=== PATIENT | female | born 1940 | race Caucasian/White ===

== ENCOUNTER 2024-02-06 14:06 | Outpatient (CLI) | payer MEDICARE, SELFPAY ==
--- NOTE | ~2024-02-06 | XR_ITS ---
EXAMINATION: XR chest 2V DATE: 02/06/2024 14:23 INDICATION: Shortness of breath. Essential hypertension. TECHNIQUE: Frontal and lateral views of the chest were obtained. COMPARISON: None. FINDINGS: The lungs are hyperexpanded with lucencies, consistent with emphysema. Calcified pulmonary nodules and calcified hilar and mediastinal lymph nodes are consistent with old granulomatous disease . There are airspace opacities in right lower lobe. No pleural effusion or pneumothorax. The heart si ze is normal. IMPRESSION: 1. Airspace opacities in right lower lobe, consistent with atelectasis versus pneumonia. 2. Emphysema. Reviewed, dictated and finalized at location E. T MONITOR IMPRESSION: 1. Airspace opacities in right lower lobe, consistent with atelectasis versus p neumonia. 2. Emphysema.
== END 2024-02-06 14:07 ==
PROVIDERS: PCP Family Medicine; Visit Provider Nurse Practitioner Family
DX: I10 Essential (primary) hypertension (principal); R06.02 Shortness of breath; J43.9 Emphysema, unspecified; R91.8 Other nonspecific abnormal finding of lung field
CPT/HCPCS: 71046

== ENCOUNTER 2024-02-06 22:09 | Observation (INO) | payer MEDICARE, SELFPAY ==
[2024-02-06] VITALS (9 sets, daily range): BP systolic 175–195; BP diastolic 58–85; PULSE 82–91; RESP 17–29; TEMP 37; O2SAT 90–100
--- NOTE | 2024-02-06 22:13 | ECG_ITS ---
Measurements Intervals [place] Rate: 83 P: 76 CA: 121 QRS: 65 QRSD: 122 T: 94 QT: 372 QTc: 438 Interpretive Statements SINUS RHYTHM INDETERMINATE AXIS RIGHT BUNDLE BRANCH BLOCK BASELINE ARTIFACT- I, II, III, AVL, AVF ABNORMAL ECG NO PREVIOUS ECG AVAILABLE FOR COMPARISON Electronically Signed On 02-07-2024 7:31:28 PROTOTYPE ENGINEER by Franc Caballero D.O.
[2024-02-06 22:29] LABS: Basophils Percent Auto 0.6 % (0.2-1.2); Eosinophils Percent Auto 0.4 % (0-4.4); Hematocrit 44.6 % (37.0-47.0); Hemoglobin 14.5 g/dL (12.0-15.0); Immature Granulocyte Absolute 0.02 K/mm3 (0.00-0.031); Immature Granulocyte Percent A 0.3 % (0-0.5); Lymphocytes Absolute Auto 0.94 K/mm3 (0.9-3.2); Lymphocytes Percent Auto 13.4 % (18.3-44.2); Mean Corpuscular HGB Conc 32.5 g/dl (32-36); Mean Corpuscular Hemoglobin 29.2 pg (26-34); Mean Corpuscular Volume 89.7 fl (80-100); Mean Platelet Volume 10.4 fl (7.4-10.4); Monocytes Absolute Auto 0.8 K/mm3 (0.1-0.6); Monocytes Percent Auto 11.1 % (2.6-8.5); Neutrophils Absolute Auto 5.2 K/mm3 (1.3-6.7); Neutrophils Percent Auto 74.2 % (45.5-73.1); Platelet Count Result 180 k/mm3 (150-375); Red Blood Count 4.97 M/mm3 (4.2-5.4); Red Cell Distribution Width 13.2 % (11.5-14.5)
[2024-02-06 22:38] LABS: Alanine Aminotransferase 14 U/L (6-35); Albumin Level 3.5 g/dL (3.5-5.1); Alkaline Phosphatase 70 U/L (38-126); Anion Gap 2 mmol/L (8-16); Aspartate Amino Transferase 25 U/L (14-36); Bilirubin,Total 1.1 mg/dL (0.2-1.3); Blood Urea Nitrogen 23 mg/dL (7-17); Calcium 9.4 mg/dL (8.4-10.2); Carbon Dioxide 32 mmol/L (22-30); Chloride 104 mmol/L (98-107); Estimated CRCL calculation 24 ml/min; Estimated Glomerular Filt Rate 48; Glucose 120 mg/dL (65-110); Sodium 138 mmol/L (137-145)
[2024-02-06] MEDS: IPRATROPIUM BR 0.02% INH SOLN 0.5 MG/2.5 ML VIAL 1 MG INHALATION (23:00)
[2024-02-06] MEDS: ALBUTEROL SULFATE NEB 2.5 MG/3 ML INH 10 MG INHALATION (23:01)
[2024-02-06] MEDS: SODIUM CHLORIDE 0.9% IV 2,000 ML 999 ML IV CONT (23:10)
--- NOTE | 2024-02-06 23:15 | PC.NURSE ---
pt care and report given to DOMINGA Lawson. all questions answered.
[2024-02-06 23:33] LABS: Influenza A QL RT-PCR Negative (Negative); Influenza B QL RT-PCR Negative (Negative); RSV RNA, RT-PCR Negative (Negative); SARS-CoV-2 RNA PCR Negative (Negative)
[2024-02-07] VITALS (17 sets, daily range): BP systolic 102–186; BP diastolic 50–75; PULSE 71–99; RESP 12–24; TEMP 36.9; O2SAT 92–96; BMI 16.2
--- NOTE | 2024-02-07 00:06 | ED.GENADULT ---
HPI - General Adult General Chief complaint: Shortness of Breath/Dyspnea Stated complaint: sob Time Seen by Provider: 02/06/24 22:18 History of Present Illness HPI narrative: This is an 83-year-old female with history of COPD and current smoker presenting with shortness of breath. Patient's says her breathing has gotten progressively worse over the last 2 weeks. The family noted got really bad 5 days ago because she stop smoking cigarettes. Patient is denying fever chills chest pain abdominal pain, nausea vomiting or diarrhea. She has been taking her medications as prescribed. Related Data Allergies Allergy/AdvReac Type Severity Reaction Status Date / Time No Known Allergies Allergy Verified 02/06/24 13:25 [facility] Past Medical History Medical History CKD (chronic kidney disease) stage 3, GFR 30-59 ml/min COPD (chronic obstructive pulmonary disease) Essential hypertension Hyperlipidemia Hypothyroid Nicotine use SOB (shortness of breath) on exertion Vitamin D deficiency Surgical History Surgical History H/O: hysterectomy (~1981) Family History Family History Sibling Bone cancer Daughter Diabetes mellitus Social History Social History Smoking packs per day: 1.5 Smoking cigarettes per day: 30.0 Years smoked: 65 Smoking pack-years: 97.50 Smoking status: Current every day smoker (smoking 3 cigarettes a day while living at her son's house) Tobacco type: cigarettes Alcohol intake: never Substance use: never Lack of Transportation: No Lack of Food: Never True Current Housing: I Have Housing Concerned About Future Housing: No Difficulty Paying Gas/Electric Bills: No Difficulty Paying for Meds: No Currently Unemployed: No Education: High School Diploma/GED Difficulty w/ Childcare or Family Care: No Living arrangements: with family Occupation/Education: retired Gender identity (if verbalized by the patient): Female Agree to blood products: Yes Exam Narrative: APPEARANCE: No apparent distress. Emphysema body type Head: atraumatic. EYES: EOMI, NOSE: Atraumatic NECK: Trachea midline RESPIRATORY: Decreased lung sounds in all olivares, tachypneic CARDIOVASCULAR: RRR, ABDOMINAL: Non-distended MUSCULOSKELETAl: No obvious deformities NEURO: Alert. Moving 4/4 extremities SKIN:: Warm, dry. Normal color PSYCHIATRIC: Normal affect Course Vital Signs Vital signs: Vital Signs Temperature 98.6 F 02/06/24 22:03 Pulse Rate 83 02/06/24 22:03 Respiratory Rate 29 H 02/06/24 22:03 Blood Pressure 195/85 H 02/06/24 22:03 Pulse Oximetry 93 02/06/24 22:03 Oxygen Delivery Room Air 02/06/24 22:03 Temperature 98.6 F 02/06/24 22:03 Pulse Rate 91 02/06/24 23:58 Respiratory Rate 24 H 02/06/24 23:58 Blood Pressure 195/85 H 02/06/24 22:03 Pulse Oximetry 92 02/06/24 22:45 Oxygen Delivery Nasal Cannula 02/06/24 22:26 Oxygen Flow Rate 1 02/06/24 22:26 Medical Decision Making MDM Narrative Medical decision making narrative: -Course: CT 3-year-old female presenting with shortness of breath. Given breathing treatments and steroids. Chest x-ray showed possible infiltratesvs atelectatsis in the right lower lobe. No fever or white count. Patient is well-appearing and pneumonia is less likely. O2 sat on room air is an 88-89. Placed on 2 L. Will see if patient's oxygen saturation improved with breathing treatments but she may be the point where she needs home oxygen. Patient put on Zithromax for COPD exacerbation. Patient will be admitted to the hospital for further management. -DDX includes but is not limited to: COPD, pneumonia, viral illness -Co-morbidities complicating care: COPD, current smoker -Social determinants of heal
--- NOTE | 2024-02-07 00:28 | PM.IMHP ---
H&P: HPI History of Present Illness Date/Time: 02/07/24 00:28 Chief Complaint: SOB Narrative: THIS IS AN 83-YEAR-OLD FEMALE WITH PAST MEDICAL HISTORY SIGNIFICANT FOR TOBACCO DEPENDENCE, COPD/EMPHYSEMA, HYPERTENSION. PATIENT PRESENTS TO THE EMERGENCY ROOM DUE TO WORSENING SHORTNESS OF BREATH FOR THE LAST 3 DAYS OR SO, COUGH, POOR APPETITE, PATIENT LIVES WITH SON WHO PROVIDES MUCH OF THE HISTORY. UPON ARRIVAL TO EMERGENCY ROOM PATIENT WAS FOUND TO HAVE A LOW OXYGEN SATURATION PLACED ON SUPPLEMENTAL OXYGEN BY NASAL CANNULA PRELIMINARY WORKUP WAS SIGNIFICANT FOR CHEST X-RAY WITH LUNG INFILTRATES. PATIENT IS STILL DAILY EVERYDAY SMOKER ACCORDING TO SON HAS NOT BEEN SMOKING THE LAST 3 DAYS. PATIENT HAS BEEN ADMITTED FOR FURTHER EVALUATION MANAGEMENT AND TREATMENT. EXAMINATION: XR chest 2V DATE: 02/06/2024 14:23 INDICATION: Shortness of breath. Essential hypertension. TECHNIQUE: Frontal and lateral views of the chest were obtained. COMPARISON: None. FINDINGS: The lungs are hyperexpanded with lucencies, consistent with emphysema. Calcified pulmonary nodules and calcified hilar and mediastinal lymph nodes are consistent with old granulomatous disease. There are airspace opacities in right lower lobe. No pleural effusion or pneumothorax. The heart size is normal. IMPRESSION: 1. Airspace opacities in right lower lobe, consistent with atelectasis versus pneumonia. 2. Emphysema. Review of Systems Review of Systems: SHORTNESS OF BREATH, COUGH Constitutional: Constitutional: Reports fatigue, Reports poor appetite and Reports weakness Eyes: Eyes: Denies change in vision ENT: Denies dysphagia and Denies odynophagia Cardiovascular: Cardiovascular: Denies chest pain, Denies radiating jaw, neck or arm pain and Denies palpitations Respiratory: Respiratory: Reports cough, Reports excessive phlegm production, Reports dyspnea and Reports wheezing Gastrointestinal: Gastrointestinal: Denies abdominal pain, Denies nausea and Denies vomiting Genitourinary: Genitourinary: Denies dysuria Musculoskeletal: Musculoskeletal: Reports muscle weakness Integumentary/Breasts: Skin/Breast: Denies rash Neurologic: Denies focal weakness and Denies Sensory deficit (Neuro) Psychiatric: Psychiatric: Reports no additional psychiatric complaints and Reports as per HPI Endocrine: Endocrine: Denies cold intolerance, Denies fatigue, Denies flushing, Denies heat intolerance, Denies polyphagia, Denies polydipsia, Denies polyuria and Denies palpitations Hematologic/Lymphatic: Hematologic/Lymphatic: Reports no additional hematologic/lymphatic complaints and Reports as per HPI Allergic/Immunologic: Allergic/Immunologic: Reports no additional allergic/immunologic complaints and Reports as per HPI [facility] Past Medical History Medical History CKD (chronic kidney disease) stage 3, GFR 30-59 ml/min COPD (chronic obstructive pulmonary disease) Essential hypertension Hyperlipidemia Hypothyroid Nicotine use SOB (shortness of breath) on exertion Vitamin D deficiency Surgical History Surgical History H/O: hysterectomy (~1981) Family History Family History Sibling Bone cancer Daughter Diabetes mellitus Social History Social History Smoking packs per day: 1.5 Smoking cigarettes per day: 30.0 Years smoked: 65 Smoking pack-years: 97.50 Smoking status: Current every day smoker (smoking 3 cigarettes a day while living at her son's house) Tobacco type: cigarettes Alcohol intake: never Substance use: never Lack of Transportation: No Lack of Food: Never True Current Housing: I Have Housing Concerned About Future Housing: No Difficulty Paying Gas/Electric Bills: No Difficulty Paying for Meds: No Currently Unemp
[2024-02-07] MEDS: AZITHROMYCIN 500 MG/NS 250 ML 500 MG/250 ML BAG 250 MG IVPB (01:21)
--- NOTE | 2024-02-07 02:01 | ADMGEN ---
This patient, Elsie Kaye, was admitted to Medical Room 250-01. Patient/family oriented to hospital policies and general routines including ID bracelet, bed and alarms, visiting hours, pain management, procedures, bathroom and other care routines, personal items, smoking policy, room service/diet, and visiting hours. Information on how to activate the Rapid Response Team has been discussed. Patient/Family are encouraged to report perceived risks to care and to ask questions if they do not understand what they are told or what they should do.
[2024-02-07] MEDS: IPRATROPIUM 0.5 MG/ALBUTEROL SULFATE 2.5 MG AMPUL.NEB 3 ML INHALATION ×3 (02:26→13:46)
[2024-02-07 04:19] LABS: Procalcitonin 0.3 ng/mL
--- NOTE | 2024-02-07 06:59 | PM.IMPN ---
Progress Note: A&P Assessment and Plan (1) Acute exacerbation of chronic obstructive pulmonary disease: Code(s): J44.1 - Chronic obstructive pulmonary disease with (acute) exacerbation Status: Acute Assessment and Plan: Patient presented with shortness of breath requiring new O2 supplementation in ED. CXR reveals right lower lobe opacities and emphysema. Possibly pneumonia, however WBC normal and afebrile. Respiratory panel negative. Home O2 evaluation negative. Continue Azithromycin Continue Methylprednisolone Continue Duoneb Monitor VS (maintain SpO2 88-94%) (2) Stage 3a chronic kidney disease (CKD): Code(s): N18.31 - Chronic kidney disease, stage 3a Status: Acute Assessment and Plan: Patients kidney function is at baseline. BUN 23, creatinine 1.1, eGFR 48 Avoid nephrotoxic medications (3) Hypothyroid: Qualifiers: Hypothyroidism type: acquired Qualified Code(s): E03.9 - Hypothyroidism, unspecified Code(s): E03.9 - Hypothyroidism, unspecified Status: Acute Assessment and Plan: TSH 0.63 on 03/21/23. Continue home management with Levothyroxine 112 mcg PO daily (4) Essential hypertension: Code(s): I10 - Essential (primary) hypertension Status: Acute Assessment and Plan: BP reviewed and is stable. Continue home management with Lisinopril 20 mg PO and Atenolol 100,g PO daily. (5) Hyperlipidemia: Qualifiers: Hyperlipidemia type: unspecified Qualified Code(s): E78.5 - Hyperlipidemia, unspecified Code(s): E78.5 - Hyperlipidemia, unspecified Status: Acute Assessment and Plan: Cholesterol 226, LDL 147, HDL 54 on 03/21/23. Continue home management with Atorvastatin 20 mg PO (6) Tobacco dependence: Code(s): F17.200 - Nicotine dependence, unspecified, uncomplicated Status: Acute Plan Diet: heart healthy DVT ppx: Lovenox Subjective Date/time seen: 02/07/24 06:59 Interval history: Patient is an 83 year old female smoker with significant medical history of COPD, chronic kidney disease stage 3a, Hypothyroidism, hypertension, hyperlipidemia and nicotine dependence. Today she is lying in bed comfortably with no new complaints on 2L NC. Patient came to the hospital due to progressive shortness of breath starting 2 weeks ago and increasing in severity in the past 5 days. She states prior to this episode she was able to do her daily activities with occasional shortness of breath. She denies chest pain and palpitations during those episodes. She is not on oxygen supplementation at home. She has a chronic nonproductive cough and feels as though phlegm is constantly in the back of her throat. She denies fever, nausea/vomiting, chest pain, palpitations, and changes in bowel/bladder. Review of Systems Review of Systems: All systems reviewed & are unremarkable except as noted in HPI and below Exam Narrative: AF General: Female in no acute respiratory distress who is nontoxic appearing, lying semi recumbent in bed. HEENT: Normocephalic. Atraumatic. Pupils equal round reactive to light. Extraocular movement intact. Sclera clear and anicteric. No facial asymmetry. Chest: Lungs are clear to auscultation bilaterally. No wheezes or crackles. CV: Heart was regular rate and rhythm. S1-S2. No murmurs, gallops, or rubs. Abd: Abdomen was soft. Nontender. Nondistended. Positive bowel sounds. No organomegaly or masses. Ext: No clubbing, cyanosis, or edema. 2+ DP pulses bilaterally. Neuro: Patient is alert and oriented x4. Speech is clear. Psych: Normal mood and affect. Patient is pleasant and cooperative. Skin: Warm and dry. No rashes noted. Objective Data Vital Signs Vital Signs: Vital Signs - 24 hr 02/06/24 22:03 02/06/24 22:03 02/06/24 22:26 Temperature 98.6 F Pulse Rate 83 Respiratory Rate 29 H Blood Pressure 195/85 H Pulse Oximetry 93 90 93 Oxygen Delivery Room Air Room Air
[2024-02-07] MEDS: methylPREDNISolone SOD SUCC 125 MG VIAL 60 MG IV PUSH ×2 (07:33→12:36)
[2024-02-07] MEDS: atenoloL 50 MG TABLET 100 MG PO (09:31)
[2024-02-07] MEDS: lisinopriL 20 MG TABLET PO (09:31)
[2024-02-07] MEDS: CHOLECALCIFEROL 1,000 UNITS TABLET 5000 UNITS PO (09:31)
[2024-02-07] MEDS: LEVOTHYROXINE SODIUM 112 MCG TABLET PO (09:31)
[2024-02-07] MEDS: guaiFENesin 12 HR 600 MG TABCR PO (12:36)
--- NOTE | 2024-02-07 12:49 | PM.DS ---
DS: Admitting Diagnosis Discharge Date 02/07/2024 Admitting Diagnosis COPD exacerbation Chronic kidney disease stage 3a Hypothyroidism Hypertension Hyperlipidemia Nicotine dependence DS: Discharge Diagnosis Discharge Diagnosis (1) Acute exacerbation of chronic obstructive pulmonary disease: Code(s): J44.1 - Chronic obstructive pulmonary disease with (acute) exacerbation Status: Acute (2) Stage 3a chronic kidney disease (CKD): Code(s): N18.31 - Chronic kidney disease, stage 3a Status: Acute (3) Essential hypertension: Code(s): I10 - Essential (primary) hypertension Status: Acute (4) Hyperlipidemia: Qualifiers: Hyperlipidemia type: unspecified Qualified Code(s): E78.5 - Hyperlipidemia, unspecified Code(s): E78.5 - Hyperlipidemia, unspecified Status: Acute (5) Hypothyroid: Qualifiers: Hypothyroidism type: acquired Qualified Code(s): E03.9 - Hypothyroidism, unspecified Code(s): E03.9 - Hypothyroidism, unspecified Status: Acute (6) Nicotine use: Code(s): Z72.0 - Tobacco use Status: Acute DS: Summary Hospital Course Reason for hospitalization: COPD exacerbation Chronic kidney disease stage 3a Hypothyroidism Hypertension Hyperlipidemia Nicotine dependence Hospital Course: Patient is an 83 year old female smoker with significant medical history of COPD, chronic kidney disease stage 3a, Hypothyroidism, hypertension, hyperlipidemia and nicotine dependence. Patient came to the hospital due to progressive shortness of breath starting 2 weeks ago and increasing in severity in the past 5 days. She was placed on O2 supplementation in the ED. She states prior to this episode she was able to do her daily activities with occasional shortness of breath. She denies chest pain and palpitations during those episodes. She is not on oxygen supplementation at home. She has a chronic nonproductive cough and feels as though phlegm is constantly in the back of her throat. She denies fever, nausea/vomiting, chest pain, palpitations, and changes in bowel/bladder. A CXR revealed right lower lobe opacities and emphysema. Possibly pneumonia, however WBC normal and afebrile. Respiratory panel negative. Home O2 evaluation negative. Patient has not required oxygen supplementation and vital signs remain stable. Discussed with patient that she will be discharged home with azithromycin to complete her course of antibiotics and 5 days of prednisone. She will continue her home medications as prescribed. Patient states understanding. Discussed in depth the importance of smoking cessation. Time spent discussing smoking cessation with patient: 3 to 10 minutes Status at Discharge Functional status at discharge: independent ambulation Overall status at discharge: patient is progressing back to baseline Time Spent with Patient Time attestation: Total time spent providing and/or coordinating discharge services: Time spent: Greater than 30 minutes Exam Narrative: AF HR 90 RR 12 SpO2 93% BP 110/50 General: Female in no acute respiratory distress who is nontoxic appearing, lying semi recumbent in bed. HEENT: Normocephalic. Atraumatic. Pupils equal round reactive to light. Extraocular movement intact. Sclera clear and anicteric. Nares patent. No facial asymmetry. Chest: Lungs are clear to auscultation bilaterally. No wheezes or crackles. CV: Heart was regular rate and rhythm. S1-S2. No murmurs, gallops, or rubs. Abd: Abdomen was soft. Nontender. Nondistended. Positive bowel sounds. No organomegaly or masses. Ext: No clubbing, cyanosis, or edema. 2+ DP pulses bilaterally. Neuro: Patient is alert and oriented x4. Speech is clear. Psych: Normal mood and affect. Patient is pleasant and cooperative. Skin: Warm and dry. No rashes noted. DS: Data Data Completed and Pending Completed studies during hospitalization: CXR. Labs on day of discharge: Labs from last 24 h
== END 2024-02-07 15:35 | disposition home or self-care (01) ==
LOC: ANHED 02-07 01:00 → ANH2MED 02-07 12:43
PROVIDERS: Admitting Provider Internal Medicine; Emergency Provider Emergency Medicine; PCP Family Medicine; Visit Provider Internal Medicine
DX: J44.1 Chronic obstructive pulmonary disease with (acute) exacerbation (principal); J43.9 Emphysema, unspecified; I12.9 Hypertensive chronic kidney disease with stage 1 through stage 4 chronic kidney disease, or unspecified chronic kidney disease; N18.31 Chronic kidney disease, stage 3a; E78.5 Hyperlipidemia, unspecified; E03.9 Hypothyroidism, unspecified; R94.31 Abnormal electrocardiogram [ECG] [EKG]; R63.0 Anorexia; E55.9 Vitamin D deficiency, unspecified; Z68.1 Body mass index [BMI] 19.9 or less, adult; F17.210 Nicotine dependence, cigarettes, uncomplicated; Z20.822 Contact with and (suspected) exposure to COVID-19; Z79.51 Long term (current) use of inhaled steroids; Z79.899 Other long term (current) drug therapy
CPT/HCPCS: 36415; 80053; 84145; 85025; 87637; 93005; 94618; 94640; 96361; 96374; 96375; 96376; 99285; A9270; G0378; J0456; J2930; J7030

== ENCOUNTER 2024-02-17 15:26 | Outpatient (CLI) | payer MEDICARE, SELFPAY ==
--- NOTE | ~2024-02-17 | CT_ITS ---
CT Scan of the Chest without Contrast: Clinical Indication: Shortness of breath Technique: Contiguous sections were acquired throughout the chest without intravenous contrast. Dose reduction technique was used on this scan by utilizing automated exposure control and iterative recon struction technique. The dose-length product (DLP) was 145.47 mGy-cm. Findings: There is no evidence of any significant mediastinal, hilar or axillary lymphadenopathy. There are ext ensive atherosclerotic calcifications of the aorta and coronary vessels. Minimal pleural fluid present bilaterally. No pericardial effusion. Severe emphysema present.. Bilateral calcified granulomas or scarring are present. Additional calcifi ed right upper lobe granuloma present. There are calcified pleural plaques. Focal possible semisolid nodule in the right lower lobe measuring up to 9 mm (axial image 68). Images through the upper abdomen reveal probable L3 compression fracture, partially imaged. Impression: 9 mm probable semisolid nodule in the right lower lobe. One-year follow-up exam advised to reassess. Advanced emphysema with calcified granulomas. Minimal pleural fluid bilaterally. L3 compression fracture, partially imaged. Reviewed, dictated and finalized at [facility]. Impression: 9 mm probable semisolid nodule in the right lower lobe. One-year follow-up exam advised to reassess. Advanced emphysema with calcified granulomas. Minimal pleural fluid bilaterally. L3 compression fracture, partially imaged.
== END 2024-02-17 15:27 ==
LOC: GOSHIMG 15:27
PROVIDERS: PCP Family Medicine; Visit Provider Nurse Practitioner Family
DX: J18.9 Pneumonia, unspecified organism (principal); R06.02 Shortness of breath; J44.1 Chronic obstructive pulmonary disease with (acute) exacerbation; J43.9 Emphysema, unspecified
CPT/HCPCS: 71250

== ENCOUNTER 2025-02-08 08:23 | Emergency (ER) | payer MEDICARE, SELFPAY ==
--- NOTE | ~2025-02-08 | CT_ITS ---
CT brain wo con Ordering provider: Greg Vivar MD History: 84 years Female with . weakness . Comparison: None. Technique: CT of the head without contrast. Radiation reduction technique utilized.The dose-length pr oduct was 605.33 mGy-cm. FINDINGS: BRAIN PARENCHYMA AND CSF SPACES: Moderate leukoaraiosis and diffuse cortical atrophy. Moderate athero matous disease. No midline shift, mass effect or hemorrhage. The brain parenchyma and CSF spaces are otherwise normal. VISUALIZED PARANASAL SINUSES: Well aerated. MASTOIDS: Well aerated. BONES: The bones appear intact. SOFT TISSUES: Visualized nasopharynx is normal. Superficial soft tissues are normal. IMPRESSION: No acute intracranial findings. Reviewed, dictated and finalized at location A.
--- NOTE | ~2025-02-08 | XR_ITS ---
EXAMINATION: XR chest 2V DATE: 02/08/2025 09:43 INDICATION: Confusion. Cough. Weakness. TECHNIQUE: Frontal and lateral views of the chest were obtained on 3 radiographs. COMPARISON: Chest 2 views 02/06/2024, chest CT 02/17/2024 FINDINGS: The lungs are hyperexpanded with lucencies, consistent with emphysema. Calcified pulmonary nodules and calcified hilar and mediastinal lymph nodes are consistent with old granulomatous disease . There are calcified pleural plaques bilaterally. No pleural effusion or pneumothorax. The heart siz e is normal. IMPRESSION: 1. Emphysema. Reviewed, dictated and finalized at location B. IMPRESSION: 1. Emphysema.
--- NOTE | 2025-02-08 08:31 | ECG_ITS ---
Test Date: 2025-02-08 08:37:11 Measurements Intervals [place] Rate: 63 P: 84 MO: 118 QRS: -48 QRSD: 127 T: 104 QT: 436 QTc: 447 Interpretive Statements SINUS RHYTHM RIGHT BUNDLE BRANCH BLOCK T-WAVE ABNORMALITY, CONSIDER ANTEROLATERAL ISCHEMIA No previous ECG available for comparison Electronically Signed On 02-08-2025 14:55:26 CDT by Brien Del Toro M.D.
[2025-02-08 08:33] VITALS: BP 168/45; PULSE 65; RESP 22; TEMP 36.3; O2SAT 96
[2025-02-08 08:53] LABS: Basophils Percent Auto 0.4 % (0.2-1.2); Eosinophils Percent Auto 0.1 % (0-4.4); Hematocrit 45.6 % (37.0-47.0); Hemoglobin 14.5 g/dL (12.0-15.0); Immature Granulocyte Absolute 0.03 K/mm3 (0.00-0.031); Immature Granulocyte Percent A 0.4 % (0-0.5); Immature Platelet Fraction Pct 4.4 % (0.9-11.2); Lymphocytes Absolute Auto 0.97 K/mm3 (0.9-3.2); Lymphocytes Percent Auto 14.5 % (18.3-44.2); Mean Corpuscular HGB Conc 31.8 g/dl (32-36); Mean Corpuscular Hemoglobin 28.5 pg (26-34); Mean Corpuscular Volume 89.6 fl (80-100); Mean Platelet Volume 11.2 fl (7.4-10.4); Monocytes Absolute Auto 0.7 K/mm3 (0.1-0.6); Monocytes Percent Auto 9.8 % (2.6-8.5); Neutrophils Percent Auto 74.8 % (45.5-73.1); Platelet Count Result 131 k/mm3 (150-375); Red Blood Count 5.09 M/mm3 (4.2-5.4); White Blood Count 6.7 K/mm3 (4.5-10.0)
[2025-02-08 09:10] LABS: Alanine Aminotransferase 15 U/L (6-35); Albumin Level 3.6 g/dL (3.5-5.1); Alkaline Phosphatase 51 U/L (38-126); Anion Gap 6 mmol/L (4-12); Aspartate Amino Transferase 33 U/L (14-36); Bilirubin,Total 0.6 mg/dL (0.2-1.3); Blood Urea Nitrogen 42 mg/dL (7-17); Calcium 9.4 mg/dL (8.4-10.2); Carbon Dioxide 29 mmol/L (22-30); Chloride 104 mmol/L (98-107); Estimated CRCL calculation 20 ml/min; Estimated Glomerular Filt Rate 41; Glucose 133 mg/dL (65-110); Potassium 4.3 mmol/L (3.4-5.0); Sodium 139 mmol/L (137-145)
[2025-02-08 09:38] LABS: Appearance Urine Sl Cloudy (Clear); Color Urine Yellow (Yellow); pH Urine 5.5 (5.0-9.0)
[2025-02-08 09:39] LABS: Blood Urine Negative (Negative); Glucose Urine UA Negative (Negative); Ketones Urine Negative (Negative); Protein Urine 3+ mg/dL (Negative)
[2025-02-08 09:40] LABS: Bilirubin Urine Negative (Negative); Nitrate Urine Negative (Negative); Urobilinogen Urine 0.2 mg/dL (<2.0)
[2025-02-08 09:41] LABS: Add Urine Microscopic? YES; Leukocyte Esterase Ur Negative LEU/UL (Negative)
[2025-02-08 09:58] LABS: RBC Urine None seen /hpf (0-2); Squamous Epithelial Cell Urine Few /hpf (Few); WBC Urine 0-5 /hpf (0-3)
[2025-02-08 09:59] LABS: Bacteria Urine 2+ /hpf; Calcium Oxalate Crystals Urine Present /hpf; Hyaline Casts Urine Present /lpf
[2025-02-08] MEDS: IPRATROPIUM 0.5 MG/ALBUTEROL SULFATE 2.5 MG AMPUL.NEB 3 ML 6 ML INHALATION (09:59)
[2025-02-08 10:00] VITALS: PULSE 61; RESP 20
[2025-02-08 10:12] LABS: Fractional Inspired Oxygen 21 %; HCO3 VBG 26.2 mEq/l (24.0-30.0); PO2 VBG 35.5 mmHg (35.0-45.0)
[2025-02-08 10:14] LABS: Device ROOM AIR; pH VBG 7.402 (7.300-7.400)
[2025-02-08 10:27] VITALS: PULSE 66; RESP 21
[2025-02-08 10:39] LABS: Alanine Aminotransferase 15 U/L (6-35); Albumin Level 3.6 g/dL (3.5-5.1); Alkaline Phosphatase 61 U/L (38-126); Anion Gap 7 mmol/L (4-12); Aspartate Amino Transferase 29 U/L (14-36); Bilirubin,Total 0.4 mg/dL (0.2-1.3); Blood Urea Nitrogen 41 mg/dL (7-17); Calcium 9.2 mg/dL (8.4-10.2); Carbon Dioxide 30 mmol/L (22-30); Chloride 103 mmol/L (98-107); Creatine Kinase 51 U/L (30-135); Estimated CRCL calculation 18 ml/min; Estimated Glomerular Filt Rate 36; Glucose 114 mg/dL (65-110); Lipase 227 U/L (23-300); Magnesium 1.9 mg/dL (1.6-2.3); Phosphorus 3.5 mg/dL (2.5-4.5); Potassium 3.9 mmol/L (3.4-5.0); Sodium 140 mmol/L (137-145)
[2025-02-08 10:44] LABS: Basophils Percent Auto 0.3 % (0.2-1.2); Hematocrit 42.3 % (37.0-47.0); Hemoglobin 13.6 g/dL (12.0-15.0); Immature Granulocyte Absolute 0.02 K/mm3 (0.00-0.031); Immature Granulocyte Percent A 0.3 % (0-0.5); Lymphocytes Absolute Auto 1.24 K/mm3 (0.9-3.2); Lymphocytes Percent Auto 18.8 % (18.3-44.2); Mean Corpuscular HGB Conc 32.2 g/dl (32-36); Mean Corpuscular Hemoglobin 28.5 pg (26-34); Mean Corpuscular Volume 88.5 fl (80-100); Mean Platelet Volume 10.5 fl (7.4-10.4); Monocytes Absolute Auto 0.7 K/mm3 (0.1-0.6); Neutrophils Absolute Auto 4.6 K/mm3 (1.3-6.7); Neutrophils Percent Auto 69.6 % (45.5-73.1); Platelet Count Result 141 k/mm3 (150-375); Red Blood Count 4.78 M/mm3 (4.2-5.4); Red Cell Distribution Width 13.9 % (11.5-14.5); White Blood Count 6.6 K/mm3 (4.5-10.0)
[2025-02-08 10:53] LABS: Lactic Acid Reflex 1.1 mmol/L (0.7-2.0)
[2025-02-08 10:54] LABS: INR 0.9; Prothrombin Time 12.7 Seconds (11.1-14.7)
[2025-02-08] MEDS: SODIUM CHLORIDE 0.9% IV 1,500 ML 999 ML IV CONT (10:54)
[2025-02-08] MEDS: ONDANSETRON INJ 4 MG/2 ML VIAL IV PUSH (10:54)
[2025-02-08 10:55] LABS: Partial Thromboplastin Time 26.7 Seconds (22.3-36.8)
[2025-02-08 10:58] LABS: Troponin I 0.045 ng/mL (0.000-0.034)
[2025-02-08 11:04] LABS: Influenza A QL RT-PCR Positive (Negative); Influenza B QL RT-PCR Negative (Negative); RSV RNA, RT-PCR Negative (Negative); SARS-CoV-2 RNA PCR Negative (Negative)
[2025-02-08 11:46] LABS: Thyroid Stimulating Hormone Reflex 0.271 uIU/mL (0.465-4.68)
--- NOTE | 2025-02-08 11:58 | PC.NURSE ---
Meal tray ordered for pt
[2025-02-08 12:12] LABS: Free T4 Free Thyroxine Reflex 2.87 ng/dL (0.78-2.19)
--- NOTE | 2025-02-08 12:12 | ED.GENADULT ---
HPI - General Adult General Chief complaint: Weakness Stated complaint: vomiting, weak, found sitting on floor, confused Time Seen by Provider: 02/08/25 09:05 History of Present Illness HPI narrative: This is an 84-year-old female presenting for generalized weakness. She has been exposed to flu from a family member. Four days ago she had multiple episodes of nausea and vomiting has been laying in bed since then. She is not eating or drinking well. Today she got up to go to the restroom but was too weak and ended up lower herself to the floor and wetting herself. Family then brought her to the hospital for evaluation. The patient says that she feels weak. She is denying fevers chills chest pain difficulty breathing abdominal pain or urinary symptoms. She does not have any pain in says that she did not fall but lower self gently to the ground. Related Data Allergies Allergy/AdvReac Type Severity Reaction Status Date / Time No Known Allergies Allergy Verified 02/08/25 08:41 [facility] Past Medical History Medical History Emphysema of lung Osteoporosis Compression fracture CKD (chronic kidney disease) stage 3, GFR 30-59 ml/min Vitamin D deficiency Nicotine use Hypothyroid Hyperlipidemia Essential hypertension COPD (chronic obstructive pulmonary disease) Surgical History Surgical History H/O: hysterectomy (~1981) Family History Family History Sibling Bone cancer Daughter Diabetes mellitus Social History Social History Smoking packs per day: 0.5 Smoking cigarettes per day: 10.0 Years smoked: 65 Smoking pack-years: 32.50 Smoking status: Current every day smoker Tobacco type: cigarettes Smoking end date: 01/30/24 Alcohol intake: never Substance use: never Substance use type: does not use Do You Feel Safe in your Home?: Yes Lack of Transportation: No Lack of Food: Never True Current Housing: I Have Housing Concerned About Future Housing: No Difficulty Paying Gas/Electric Bills: No Difficulty Paying for Meds: No Currently Unemployed: No Education: High School Diploma/GED Difficulty w/ Childcare or Family Care: No Living arrangements: with family Occupation/Education: retired Gender identity (if verbalized by the patient): Female Spiritual care concerns: No Agree to blood products: Yes Exam Narrative: APPEARANCE: No apparent distress. Head: atraumatic. EYES: EOMI, NOSE: Atraumatic NECK: Trachea midline RESPIRATORY: No increased rate of breathing, decreased air entry in all olivares, CARDIOVASCULAR: RRR, no peripheral edema ABDOMINAL: Non-distended soft nontender MUSCULOSKELETAl: Head to toe trauma exam performed w/ no areas of tenderness or deformity NEURO: Alert. Moving 4/4 extremities SKIN:: Warm, dry. Normal color PSYCHIATRIC: Normal affect Course Vital Signs Vital signs: Vital Signs Temperature 97.4 F L 02/08/25 08:33 Pulse Rate 65 02/08/25 08:33 Respiratory Rate 22 H 02/08/25 08:33 Blood Pressure 168/45 H 02/08/25 08:33 Pulse Oximetry 96 02/08/25 08:33 Oxygen Delivery Room Air 02/08/25 08:33 Temperature 97.4 F L 02/08/25 08:33 Pulse Rate 66 02/08/25 10:27 Respiratory Rate 21 H 02/08/25 10:27 Blood Pressure 168/45 H 02/08/25 08:33 Pulse Oximetry 96 02/08/25 08:33 Oxygen Delivery Room Air 02/08/25 08:33 Medical Decision Making MDM Narrative Medical decision making narrative: -Course: A 84-year-old female presenting with 3 days of flu-like symptoms and generalized weakness. Given breathing treatment for decreased breath sounds. Given fluid resuscitation for dehydration. Sepsis workup obtained. Patient is positive for influenza A. SXS onset > 48 hrs. Risk for workup was significant for troponins that were flat at .045 -> .040. Patient does not have chest pain. No ischemic changes on EKG. I discussed admission with patient in regards to her elevated troponins. Her symptoms are not consistent with ACS and are more likely demand ischemia from a viral illness. Patient/family do not want to be admitted and are aware of the risks of MT/. On re-evaluation patient is resting comfortably in bed. She has been able to ambulate around the emergency department with walker which is her baseline. She was able to eat and drink as normal. She says that she is feeling much better. Patient is comfortable going home at this time. She has follow-up with her primary care physician tomorrow. She is encouraged to return to the ED if she develops any worsening symptoms, chest pain, difficulty breathing or if she is getting worse. Independent EKG interpretation: Rhythm [sinus], Rate [63], [place] -[normal], GA -[normal], QRS [narrow], QTC [normal], T waves -[negative for concerning inversions], ST Segments - [Negative for concerning elevations] Final interpretations: [Normal Sinus Rhythm] Vital Signs Vital Signs: Vital Signs Temperature 97.4 F L 02/08/25 08:33 Pulse Rate 65 02/08/25 08:33 Respiratory Rate 22 H 02/08/25 08:33 Blood Pressure 168/45 H 02/08/25 08:33 Pulse Oximetry 96 02/08/25 08:33 Oxygen Delivery Room Air 02/08/25 08:33 Temperature 97.4 F L 02/08/25 08:33 Pulse Rate 66 02/08/25 10:27 Respiratory Rate 21 H 02/08/25 10:27 Blood Pressure 168/45 H 02/08/25 08:33 Pulse Oximetry 96 02/08/25 08:33 Oxygen Delivery Room Air 02/08/25 08:33 Lab Data 02/08/25 10:37 02/08/25 10:18 Labs: Lab Results 02/08/25 02/08/25 02/08/25 Range/Units 08:44 09:18 10:18 WBC 6.7 (4.5-10.0) K/mm3 RBC 5.09 (4.2-5.4) M/mm3 Hgb 14.5 (12.0-15.0) g/dL Hct 45.6 (37.0-47.0) % MCV 89.6 (80-100) fl MCH 28.5 (26-34) pg MCHC 31.8 L (32-36) g/dl RDW 14.0 (11.5-14.5) % Plt Count 131 L (150-375) k/mm3 MPV 11.2 H (7.4-10.4) fl Immature Gran % (Auto) 0.4 (0-0.5) % Neut % (Auto) 74.8 H (45.5-73.1) % Lymph % (Auto) 14.5 L (18.3-44.2) % [place] % (Auto) 9.8 H (2.6-8.5) % Eos % (Auto) 0.1 (0-4.4) % Baso % (Auto) 0.4 (0.2-1.2) % Lymph # (Auto) 0.97 (0.9-3.2) K/mm3 [place] # (Auto) 0.7 H (0.1-0.6) K/mm3 Eos # (Auto) 0.0 (0-0.3) K/mm3 Baso # (Auto) 0.0 (0.0-0.1) K/mm3 Abs Immat Gran (auto) 0.03 (0.00-0.031) K/mm3 Absolute Neuts (auto) 5.0 (1.3-6.7) K/mm3 Absolute Nucleated RBC 0.000 (0.0-0.012) K/mm3 Nucleated RBC % 0.0 (0.0-0.2) % % Immature Plt Fraction 4.4 (0.9-11.2) % PT (11.1-14.7) Seconds INR APTT (22.3-36.8) Seconds Sodium 139 140 (137-145) mmol/L Potassium 4.3 3.9 (3.4-5.0) mmol/L Chloride 104 103 (98-107) mmol/L Carbon Dioxide 29 30 (22-30) mmol/L Anion Gap 6 7 (4-12) mmol/L BUN 42 H D 41 H (7-17) mg/dL Creatinine 1.24 H 1.40 H (0.7-1.0) mg/dL Estim Creat Clear Calc 20 18 ml/min Estimated GFR 41 L 36 L (59 - ) Glucose 133 H 114 H (65-110) mg/dL Lactic Acid (0.7-2.0) mmol/L Calcium 9.4 9.2 (8.4-10.2) mg/dL Phosphorus 3.5 (2.5-4.5) mg/dL Magnesium 1.9 (1.6-2.3) mg/dL Total Bilirubin 0.6 0.4 (0.2-1.3) mg/dL AST 33 29 (14-36) U/L ALT 15 15 (6-35) U/L Alkaline Phosphatase 51 61 (38-126) U/L Total Creatine Kinase 51 (30-135) U/L Troponin I 0.045 H* (0.000-0.034) ng/mL Total Protein 7.0 7.0 (6.3-8.2) g/dL Albumin 3.6 3.6 (3.5-5.1) g/dL Lipase 227 (23-300) U/L TSH (Reflex) (0.465-4.68) uIU/mL Free T4 (0.78-2.19) ng/dL Urine Color Yellow (Yellow) Urine Appearance Sl cloudy (Clear) Urine pH 5.5 (5.0-9.0) Ur Specific [place] 1.020 (1.001-1.035) Urine Protein 3+ H (Negative) mg/dL Urine Glucose (UA) Negative (Negative) mg/dL Urine Ketones Negative (Negative) mg/dL Ur Blood (Man) Negative (Negative) Urine Nitrate Negative (Negative) Urine Bilirubin Negative (Negative) Urine Urobilinogen 0.2 (<2.0) mg/dL Leukocyte Esterase Rfl Negative (Negative) NANDA/UL Urine RBC None seen (0-2) /hpf Urine WBC 0-5 (0-3) /hpf Ur Squamous Epith Cells Few (Few) /hpf Calcium Oxalate Crystal Present H (None) /hpf Urine Bacteria 2+ H /hpf Hyaline Casts Present (None) /lpf Influenza A (RT-PCR) (Negative) Influenza B (RT-PCR) (Negative) RSV (RT-PCR) (Negative) SARS-CoV-2 RNA (RT-PCR) (Negative) 02/08/25 02/08/25 02/08/25 Range/Units 10:20 10:37 10:38 WBC 6.6 (4.5-10.0) K/mm3 RBC 4.78 (4.2-5.4) M/mm3 Hgb 13.6 (12.0-15.0) g/dL Hct 42.3 (37.0-47.0) % MCV 88.5 (80-100) fl MCH 28.5 (26-34) pg MCHC 32.2 (32-36) g/dl RDW 13.9 (11.5-14.5) % Plt Count 141 L (150-375) k/mm3 MPV 10.5 H (7.4-10.4) fl Immature Gran % (Auto) 0.3 (0-0.5) % Neut % (Auto) 69.6 (45.5-73.1) % Lymph % (Auto) 18.8 (18.3-44.2) % [place] % (Auto) 11.0 H (2.6-8.5) % Eos % (Auto) 0.0 (0-4.4) % Baso % (Auto) 0.3 (0.2-1.2) % Lymph # (Auto) 1.24 (0.9-3.2) K/mm3 [place] # (Auto) 0.7 H (0.1-0.6) K/mm3 Eos # (Auto) 0.0 (0-0.3) K/mm3 Baso # (Auto) 0.0 (0.0-0.1) K/mm3 Abs Immat Gran (auto) 0.02 (0.00-0.031) K/mm3 Absolute Neuts (auto) 4.6 (1.3-6.7) K/mm3 Absolute Nucleated RBC 0.000 (0.0-0.012) K/mm3 Nucleated RBC % 0.0 (0.0-0.2) % % Immature Plt Fraction (0.9-11.2) % PT 12.7 (11.1-14.7) Seconds INR 0.9 APTT 26.7 (22.3-36.8) Seconds Sodium (137-145) mmol/L Potassium (3.4-5.0) mmol/L Chloride (98-107) mmol/L Carbon Dioxide (22-30) mmol/L Anion Gap (4-12) mmol/L BUN (7-17) mg/dL Creatinine (0.7-1.0) mg/dL Estim Creat Clear Calc ml/min Estimated GFR (59 - ) Glucose (65-110) mg/dL Lactic Acid 1.1 (0.7-2.0) mmol/L Calcium (8.4-10.2) mg/dL Phosphorus (2.5-4.5) mg/dL Magnesium (1.6-2.3) mg/dL Total Bilirubin (0.2-1.3) mg/dL AST (14-36) U/L ALT (6-35) U/L Alkaline Phosphatase (38-126) U/L Total Creatine Kinase (30-135) U/L Troponin I (0.000-0.034) ng/mL Total Protein (6.3-8.2) g/dL Albumin (3.5-5.1) g/dL Lipase (23-300) U/L TSH (Reflex) 0.271 L (0.465-4.68) uIU/mL Free T4 2.87 H (0.78-2.19) ng/dL Urine Color (Yellow) Urine Appearance (Clear) Urine pH (5.0-9.0) Ur Specific [place] (1.001-1.035) Urine Protein (Negative) mg/dL Urine Glucose (UA) (Negative) mg/dL Urine Ketones (Negative) mg/dL Ur Blood (Man) (Negative) Urine Nitrate (Negative) Urine Bilirubin (Negative) Urine Urobilinogen (<2.0) mg/dL Leukocyte Esterase Rfl (Negative) NANDA/UL Urine RBC (0-2) /hpf Urine WBC (0-3) /hpf Ur Squamous Epith Cells (Few) /hpf Calcium Oxalate Crystal (None) /hpf Urine Bacteria /hpf Hyaline Casts (None) /lpf Influenza A (RT-PCR) Positive A (Negative) Influenza B (RT-PCR) Negative (Negative) RSV (RT-PCR) Negative (Negative) SARS-CoV-2 RNA (RT-PCR) Negative (Negative) 02/08/25 Range/Units 12:58 WBC (4.5-10.0) K/mm3 RBC (4.2-5.4) M/mm3 Hgb (12.0-15.0) g/dL Hct (37.0-47.0) % MCV (80-100) fl MCH (26-34) pg MCHC (32-36) g/dl RDW (11.5-14.5) % Plt Count (150-375) k/mm3 MPV (7.4-10.4) fl Immature Gran % (Auto) (0-0.5) % Neut % (Auto) (45.5-73.1) % Lymph % (Auto) (18.3-44.2) % [place]ink[place] % (Auto) (2.6-8.5) % Eos % (Auto) (0-4.4) % Baso % (Auto) (0.2-1.2) % Lymph # (Auto) (0.9-3.2) K/mm3 [place] # (Auto) (0.1-0.6) K/mm3 Eos # (Auto) (0-0.3) K/mm3 Baso # (Auto) (0.0-0.1) K/mm3 Abs Immat Gran (auto) (0.00-0.031) K/mm3 Absolute Neuts (auto) (1.3-6.7) K/mm3 Absolute Nucleated RBC (0.0-0.012) K/mm3 Nucleated RBC % (0.0-0.2) % % Immature Plt Fraction (0.9-11.2) % PT (11.1-14.7) Seconds INR APTT (22.3-36.8) Seconds Sodium (137-145) mmol/L Potassium (3.4-5.0) mmol/L Chloride (98-107) mmol/L Carbon Dioxide (22-30) mmol/L Anion Gap (4-12) mmol/L BUN (7-17) mg/dL Creatinine (0.7-1.0) mg/dL Estim Creat Clear Calc ml/min Estimated GFR (59 - ) Glucose (65-110) mg/dL Lactic Acid (0.7-2.0) mmol/L Calcium (8.4-10.2) mg/dL Phosphorus (2.5-4.5) mg/dL Magnesium (1.6-2.3) mg/dL Total Bilirubin (0.2-1.3) mg/dL AST (14-36) U/L ALT (6-35) U/L Alkaline Phosphatase (38-126) U/L Total Creatine Kinase (30-135) U/L Troponin I 0.040 H* (0.000-0.034) ng/mL Total Protein (6.3-8.2) g/dL Albumin (3.5-5.1) g/dL Lipase (23-300) U/L TSH (Reflex) (0.465-4.68) uIU/mL Free T4 (0.78-2.19) ng/dL Urine Color (Yellow) Urine Appearance (Clear) Urine pH (5.0-9.0) Ur Specific [place] (1.001-1.035) Urine Protein (Negative) mg/dL Urine Glucose (UA) (Negative) mg/dL Urine Ketones (Negative) mg/dL Ur Blood (Man) (Negative) Urine Nitrate (Negative) Urine Bilirubin (Negative) Urine Urobilinogen (<2.0) mg/dL Leukocyte Esterase Rfl (Negative) NANDA/UL Urine RBC (0-2) /hpf Urine WBC (0-3) /hpf Ur Squamous Epith Cells (Few) /hpf Calcium Oxalate Crystal (None) /hpf Urine Bacteria /hpf Hyaline Casts (None) /lpf Influenza A (RT-PCR) (Negative) Influenza B (RT-PCR) (Negative) RSV (RT-PCR) (Negative) SARS-CoV-2 RNA (RT-PCR) (Negative) ABG Data ABG results: 02/08/25 10:06 VBG pH 7.402 H* VBG pCO2 43.0 VBG pO2 35.5 VBG HCO3 26.2 O2 Delivery Device Room air O2 Liters/Min Not Reportable FiO2 21 Discharge Plan Discharge Clinical Impression: Influenza, Weakness, Elevated troponin level not due myocardial infarction Patient Disposition: Home, Self-Care Condition: Stable Instructions: Antibiotic Form, Influenza (DC) Additional Instructions: Elsie was seen in the emergency department for weakness. She has the flu. Please make sure you are drinking and eating as normal. Please use Tylenol for fevers or body aches. Please follow-up at your primary care point minute tomorrow. If your condition is getting worse, you develop chest pain shortness of breath or any new symptoms please return to the ED for re-evaluation. Your troponins (an enzyme which indicates heart damage) were slightly above a normal level but were not increasing. This is likely due to your influenza infection/dehydration. Please follow-up with your primary care physician with the sales floor team member listed below for further management. Patient Language: Faroese Prescriptions: No Action budesonide-formoterol [Symbicort] 160-4.5 mcg/actuation HFA aerosol inhaler 2 puff inhalation Q12H Qty: 10.2 11RF Rx Instructions: Rinse mouth and spit after each use lisinopril 20 mg tablet 20 mg PO DAILY Qty: 90 1RF cholecalciferol (vitamin D3) 125 mcg (5,000 unit) capsule 125 mcg PO DAILY Qty: 90 1RF albuterol sulfate 90 mcg/actuation aero powdr breath act w/sensor 2 inh inhalation Q6H Qty: 1 2RF levothyroxine 112 mcg tablet See Rx Instructions .ROUTE .COMPLEX Qty: 90 1RF Dose Instruction: TAKE 1 TABLET BY MOUTH DAILY Rx Instructions: TAKE 1 TABLET BY MOUTH DAILY atorvastatin 20 mg tablet 20 mg PO QHS Qty: 90 1RF atenolol 100 mg tablet 100 mg PO DAILY Qty: 90 1RF Follow-up/Referrals: Brooks Jones MD [Primary Care Provider] - 1 Day (Influenza) Brien Del Toro MD [Physician] - 1 Week
--- NOTE | 2025-02-08 14:13 | PC.NURSE ---
Pt. able to walk independently with a walker. Dr. Vivar notified.
[2025-02-08 14:49] VITALS: BP 114/75; PULSE 76; RESP 16; O2SAT 98
== END 2025-02-08 14:51 | disposition home or self-care (01) ==
PROVIDERS: Emergency Provider Emergency Medicine; PCP Family Medicine
DX: J10.1 Influenza due to other identified influenza virus with other respiratory manifestations (principal); R53.1 Weakness; R79.89 Other specified abnormal findings of blood chemistry; Z20.822 Contact with and (suspected) exposure to COVID-19; J43.9 Emphysema, unspecified; I12.9 Hypertensive chronic kidney disease with stage 1 through stage 4 chronic kidney disease, or unspecified chronic kidney disease; N18.30 Chronic kidney disease, stage 3 unspecified; E03.9 Hypothyroidism, unspecified; E78.5 Hyperlipidemia, unspecified; M81.0 Age-related osteoporosis without current pathological fracture; E55.9 Vitamin D deficiency, unspecified; Z90.710 Acquired absence of both cervix and uterus; Z87.891 Personal history of nicotine dependence
CPT/HCPCS: 36415; 70450; 71046; 80053; 81001; 82550; 82803; 83605; 83690; 83735; 84100; 84439; 84443; 84484; 85025; 85055; 85610; 85730; 87040; 87637; 93005; 94640; 96361; 96374; 99284; J2405; J7030

== ENCOUNTER 2025-02-09 21:30 | Emergency (ER) | payer MEDICARE, SELFPAY ==
--- NOTE | ~2025-02-09 | CT_ITS ---
CTA chest PE protocol Ordering provider: Sarah Xiao MD History: 84 years Female with . sob . Comparison: None. Technique: CT angiogram chest was performed following timed intravenous injection of contrast. Thin s lice axial images and reformatted coronal images were obtained. Three dimensional reformatted images of the chest were also obtained using a [employer] workstation. . Automated exposure control and iterati ve reconstruction technique were employed. The dose-length product was 160.84 mGy-cm. 100 mL Omnipaqu e 350 was given IV. Findings: PULMONARY ARTERIES: No pulmonary embolus. VISUALIZED THORACIC INLET: Normal. MEDIASTINUM: Aorta/coronary arteries: Moderate atheromatous disease. Heart/other: The heart is not enlarged. Lymph nodes: No mediastinal or hilar adenopathy. LUNGS: Right mild to moderate pleural effusion. Adjacent atelectasis seen. Mild left pleural effusion. No pu lmonary nodules or masses. No infiltrates. No pneumothorax. Calcified granulomas in the right upper l obe. Underlying emphysematous changes. Calcified granuloma in the left upper lobe medially pleural ca lcification seen in the left side. Emphysematous bulla is seen in the medial right lung base. No pneu mothorax is less likely. Dependent atelectatic changes. VISUALIZED UPPER ABDOMEN: Thickened wall of the stomach. Slight dilatation of the abdominal aorta and the proximal aorta measuring 2.4 cm.. Otherwise, the visualized upper abdomen is normal. MUSCULOSKELETAL: Soft tissues: The superficial soft tissues are normal. Bones: Compression fracture of L3 which is most likely chronic. Rs,Age appropriate degenerative [place] es of the spine. IMPRESSION: 1. No pulmonary embolism. 2. Bilateral pleural effusion more on the right side with adjacent atelectasis. Underlying emphysema tous changes. 3. Lucency in the right lung base medially most likely emphysematous bulla. No pneumothorax is less likely. Reviewed, dictated and finalized at location A. IMPRESSION: 1. No pulmonary embolism. 2. Bilateral pleural effusion more on the right side with adjacent atelectasis . Underlying emphysematous changes. 3. Lucency in the right lung base medially most likely emphysematous bulla. No pneumothorax is less likely.
[2025-02-09 21:27] VITALS: BP 147/84; PULSE 77; RESP 18; TEMP 36.7; O2SAT 92
[2025-02-09 21:39] VITALS: O2SAT 97
--- NOTE | 2025-02-09 22:01 | ECG_ITS ---
Test Date: 2025-02-09 22:37:32 Measurements Intervals [place] Rate: 79 P: 76 WI: 126 QRS: -1 QRSD: 117 T: 95 QT: 389 QTc: 447 Interpretive Statements SINUS RHYTHM POSSIBLE LEFT ATRIAL ENLARGEMENT [-0.1mV P WAVE IN V1/V2] RIGHT BUNDLE BRANCH BLOCK LEFT VENTRICULAR HYPERTROPHY ST AND T-WAVE ABNORMALITY, CONSIDER ANTEROLATERAL ISCHEMIA Compared to ECG 02/08/2025 08:37:11 NO SIGNIFICANT CHANGES Electronically Signed On 02-11-2025 16:31:51 CDT by Brien Del Toro M.D.
[2025-02-09 22:38] LABS: Basophils Percent Auto 0.2 % (0.2-1.2); Eosinophils Percent Auto 0.6 % (0-4.4); Hematocrit 37.1 % (37.0-47.0); Hemoglobin 11.9 g/dL (12.0-15.0); Immature Granulocyte Absolute 0.02 K/mm3 (0.00-0.031); Immature Granulocyte Percent A 0.4 % (0-0.5); Immature Platelet Fraction Pct 2.5 % (0.9-11.2); Lymphocytes Absolute Auto 0.84 K/mm3 (0.9-3.2); Lymphocytes Percent Auto 15.6 % (18.3-44.2); Mean Corpuscular HGB Conc 32.1 g/dl (32-36); Mean Corpuscular Hemoglobin 28.6 pg (26-34); Mean Corpuscular Volume 89.2 fl (80-100); Mean Platelet Volume 10.2 fl (7.4-10.4); Monocytes Absolute Auto 0.5 K/mm3 (0.1-0.6); Monocytes Percent Auto 9.1 % (2.6-8.5); Neutrophils Percent Auto 74.1 % (45.5-73.1); Platelet Count Result 114 k/mm3 (150-375); Red Blood Count 4.16 M/mm3 (4.2-5.4); Red Cell Distribution Width 13.8 % (11.5-14.5); White Blood Count 5.4 K/mm3 (4.5-10.0)
[2025-02-09 22:49] LABS: Alanine Aminotransferase 18 U/L (6-35); Albumin Level 2.9 g/dL (3.5-5.1); Alkaline Phosphatase 62 U/L (38-126); Anion Gap 4 mmol/L (4-12); Aspartate Amino Transferase 37 U/L (14-36); Bilirubin,Total 0.3 mg/dL (0.2-1.3); Blood Urea Nitrogen 30 mg/dL (7-17); Carbon Dioxide 28 mmol/L (22-30); Chloride 106 mmol/L (98-107); Estimated Glomerular Filt Rate 41; Glucose 106 mg/dL (65-110); Magnesium 1.6 mg/dL (1.6-2.3); Potassium 4.2 mmol/L (3.4-5.0); Sodium 138 mmol/L (137-145)
[2025-02-09 23:35] VITALS: BP 125/61; PULSE 81; RESP 18; O2SAT 94
[2025-02-09] MEDS: methylPREDNISolone SOD SUCC 125 MG VIAL IV PUSH (23:35)
--- NOTE | 2025-02-09 23:38 | ED.GENADULT ---
HPI - General Adult General Chief complaint: Shortness of Breath/Dyspnea Stated complaint: SOB, PROGRESSIVELY WORSENING Time Seen by Provider: 02/09/25 21:59 History of Present Illness HPI narrative: Patient is an 84-year-old female who presents the emergency department of shortness of breath. EMS stated that they had an SpO2 of 88% on room air administered a DuoNeb breathing treatment on route with improvement of her oxygenation. Patient does have a past medical history of COPD and emphysema and was seen our facility yesterday for a similar findings. Patient does not wear any O2 at home as she has had no issues maintaining her oxygenation above 90% on room air. Patient states that she is supposed to be getting a CT of her chest soon for further evaluation of her shortness of breath. Patient did test positive for influenza this past . No chest pain, fevers or chills at home. No additional symptoms or concerns at this time. Related Data Home Medications ?Medication ?Instructions ?Recorded ?Confirmed ?Last Taken ?Type levothyroxine 112 mcg tablet 112 mcg PO DAILY 02/09/25 Unknown History Allergies Allergy/AdvReac Type Severity Reaction Status Date / Time No Known Allergies Allergy Verified 02/09/25 13:57 Review of Systems Review of Systems: All systems are reviewed and are negative unless stated otherwise in the HPI. [facility] Past Medical History Medical History Emphysema of lung Osteoporosis Compression fracture CKD (chronic kidney disease) stage 3, GFR 30-59 ml/min Vitamin D deficiency Nicotine use Hypothyroid Hyperlipidemia Essential hypertension COPD (chronic obstructive pulmonary disease) Surgical History Surgical History H/O: hysterectomy (~1981) Family History Family History Sibling Bone cancer Daughter Diabetes mellitus Social History Social History Smoking packs per day: 0.5 Smoking cigarettes per day: 10.0 Years smoked: 65 Smoking pack-years: 32.50 Smoking status: Former smoker Tobacco type: cigarettes Smoking end date: 08/31/24 Alcohol intake: never Substance use: never Substance use type: does not use Do You Feel Safe in your Home?: Yes Lack of Transportation: No Lack of Food: Never True Current Housing: I Have Housing Concerned About Future Housing: No Difficulty Paying Gas/Electric Bills: No Difficulty Paying for Meds: No Currently Unemployed: No Education: High School Diploma/GED Difficulty w/ Childcare or Family Care: No Living arrangements: with family Occupation/Education: retired Gender identity (if verbalized by the patient): Female Spiritual care concerns: No Agree to blood products: Yes Exam Narrative: General: Alert, awake, afebrile, in no acute distress, very [place]. HEENT: PERRL, no rhinorrhea, no post nasal drip, oropharynx clear. Neck: Trachea midline, no JVD, no lymphadenopathy. Cardiovascular: Regular rate and rhythm, no murmurs, rubs or gallops, no peripheral edema. Respiratory: Clear to auscultation bilaterally, no tachypnea, no wheezing appreciated, no rhonchi, no rubs, no respiratory distress. Abdomen: Soft, nontender, nondistended, no rebound, no guarding, no peritoneal signs. Musculoskeletal: No joint swelling or deformity, normal muscle tone. Skin: No rashes or petechia, no signs of infection. Psychiatric: Alert and oriented, normal behavior and judgment for situation. Neurological: Alert and oriented to person, place, and time. Follows all commands. No focal deficits, speech is clear and fluent. Course Vital Signs Vital signs: Vital Signs Temperature 98.1 F 02/09/25 21:27 Pulse Rate 77 02/09/25 21:27 Respiratory Rate 18 02/09/25 21:27 Blood Pressure 147/84 H 02/09/25 21:27 Pulse Oximetry 92 02/09/25 21:27 Oxygen Delivery Room Air 02/09/25 21:27 Temperature 98.1 F 02/09/25 21:27 Pulse Rate 81 02/09/25 23:35 Respiratory Rate 18 02/09/25 23:35 Blood Pressure 125/61 02/09/25 23:35 Pulse Oximetry 94 02/09/25 23:35 Oxygen Delivery Room Air 02/09/25 21:39 Medical Decision Making MDM Narrative Medical decision making narrative: The patient was evaluated by myself in the emergency department. History is obtained from patient who is an independent historian and physical exam was performed. External medical records were reviewed at this time. IV was established and pertinent tests were ordered. Patient was administered a DuoNeb breathing treatment by EMS on route to the emergency department and upon arrival she was administered 125 mg of IV Solu-Medrol. Patient has been maintaining her oxygenation well above 90% during her entire ED stay. EKG was obtained which revealed ST depressions and T-wave inversions noted in leads V3 through V6 which were also seen on EKG obtained yesterday. EKG was independently interpreted by me and is currently pending official cardiology read. Laboratory results obtained revealing no acute process. Patient's troponin was noted to be slightly elevated at 0.036, however, this is trending downward from her troponins yesterday. Imaging studies obtained included CT angiogram PE protocol which was independently interpreted by me revealing: IMPRESSION: 1. No pulmonary embolism. 2. Bilateral pleural effusion more on the right side with adjacent atelectasis. Underlying emphysematous changes. 3. Lucency in the right lung base medially most likely emphysematous bulla. No pneumothorax is less likely. Differential diagnosis considerations include COPD exacerbation, infectious process such as pneumonia, acute coronary syndrome. Comorbidities impacting this visit include history of COPD. I have evaluated and discussed social determinants of health with the patient that could potentially impact subsequent diagnosis and treatment plans. On repeat assessment of the patient, reevaluation revealed that the patient is doing well and is in no acute distress. Patient symptoms have improved since she arrived to our emergency department. Repeat vital signs were all reviewed and noted to be stable. Differential diagnosis and treatment plan were discussed with the patient at bedside. Patient agrees with discussion and after shared medical decision making agrees with discharge. All questions were answered to the patient's satisfaction. Patient will follow up with her PCP in 3-5 days. Patient was provided with strict return precautions and instructed to return to the emergency department if any new or worsening symptoms develop. The patient was discharged in stable condition. Vital Signs Vital Signs: Vital Signs Temperature 98.1 F 02/09/25 21: Pulse Rate 77 02/09/25 21: Respiratory Rate 18 02/09/25 21: Blood Pressure 147/84 H 02/09/25 21:27 Pulse Oximetry 92 02/09/25 21:27 Oxygen Delivery Room Air 02/09/25 21:27 Temperature 98.1 F 02/09/25 21:27 Pulse Rate 81 02/09/25 23:35 Respiratory Rate 18 02/09/25 23:35 Blood Pressure 125/61 02/09/25 23:35 Pulse Oximetry 94 02/09/25 23:35 Oxygen Delivery Room Air 02/09/25 21:39 Lab Data 02/09/25 22:31 02/09/25 22:31 Labs: Lab Results 02/09/25 02/09/25 Range/Units 22:30 22:31 WBC 5.4 (4.5-10.0) K/mm3 RBC 4.16 L (4.2-5.4) M/mm3 Hgb 11.9 L (12.0-15.0) g/dL Hct 37.1 (37.0-47.0) % MCV 89.2 (80-100) fl MCH 28.6 (26-34) pg MCHC 32.1 (32-36) g/dl RDW 13.8 (11.5-14.5) % Plt Count 114 L (150-375) k/mm3 MPV 10.2 (7.4-10.4) fl Immature Gran % (Auto) 0.4 (0-0.5) % Neut % (Auto) 74.1 H (45.5-73.1) % Lymph % (Auto) 15.6 L (18.3-44.2) % [place] % (Auto) 9.1 H (2.6-8.5) % Eos % (Auto) 0.6 (0-4.4) % Baso % (Auto) 0.2 (0.2-1.2) % Lymph # (Auto) 0.84 L (0.9-3.2) K/mm3 [place] # (Auto) 0.5 (0.1-0.6) K/mm3 Eos # (Auto) 0.0 (0-0.3) K/mm3 Baso # (Auto) 0.0 (0.0-0.1) K/mm3 Abs Immat Gran (auto) 0.02 (0.00-0.031) K/mm3 Absolute Neuts (auto) 4.0 (1.3-6.7) K/mm3 Absolute Nucleated RBC 0.000 (0.0-0.012) K/mm3 Nucleated RBC % 0.0 (0.0-0.2) % % Immature Plt Fraction 2.5 (0.9-11.2) % Sodium 138 (137-145) mmol/L Potassium 4.2 (3.4-5.0) mmol/L Chloride 106 (98-107) mmol/L Carbon Dioxide 28 (22-30) mmol/L Anion Gap 4 (4-12) mmol/L BUN 30 H D (7-17) mg/dL Creatinine 1.24 H (0.7-1.0) mg/dL Estim Creat Clear Calc Not Reportable Estimated GFR 41 L (59 - ) Glucose 106 (65-110) mg/dL Calcium 9.0 (8.4-10.2) mg/dL Magnesium 1.6 (1.6-2.3) mg/dL Total Bilirubin 0.3 (0.2-1.3) mg/dL AST 37 H (14-36) U/L ALT 18 (6-35) U/L Alkaline Phosphatase 62 (38-126) U/L Troponin I 0.036 H* (0.000-0.034) ng/mL Total Protein 6.0 L (6.3-8.2) g/dL Albumin 2.9 L (3.5-5.1) g/dL Discharge Plan Discharge Clinical Impression: Emphysema of lung COPD (chronic obstructive pulmonary disease) Qualifiers: COPD type: unspecified COPD Qualified Code(s): J44.9 - Chronic obstructive pulmonary disease, unspecified Patient Disposition: Home, Self-Care Condition: Improved Instructions: Antibiotic Form, COPD (Chronic Obstructive Pulmonary Disease) (DC) Additional Instructions: Please follow-up with your family doctor within the next 3-5 days. Return to emergency department if any new or worsening symptoms develop. Patient Language: Lithuanian Prescriptions: No Action levothyroxine 112 mcg tablet 112 mcg PO DAILY budesonide-formoterol [Symbicort] 160-4.5 mcg/actuation HFA aerosol inhaler 2 puff inhalation Q12H Qty: 10.2 11RF Rx Instructions: Rinse mouth and spit after each use lisinopril 20 mg tablet 20 mg PO DAILY Qty: 90 1RF cholecalciferol (vitamin D3) 125 mcg (5,000 unit) capsule 125 mcg PO DAILY Qty: 90 1RF albuterol sulfate 90 mcg/actuation aero powdr breath act w/sensor 2 inh inhalation Q6H Qty: 1 2RF atorvastatin 20 mg tablet 20 mg PO QHS Qty: 90 1RF atenolol 100 mg tablet 100 mg PO DAILY Qty: 90 1RF Follow-up/Referrals: Brooks Jones MD [Primary Care Provider] - 3 Days Time of Disposition: 23:39
--- NOTE | 2025-02-09 23:51 | ECG_ITS ---
Test Date: 2025-02-09 23:56:26 Measurements Intervals [place] Rate: 81 P: 83 NH: 127 QRS: -44 QRSD: 118 T: 92 QT: 391 QTc: 454 Interpretive Statements SINUS RHYTHM POSSIBLE LEFT ATRIAL ENLARGEMENT [-0.1mV P WAVE IN V1/V2] RIGHT BUNDLE BRANCH BLOCK [120+ ms QRS DURATION, UPRIGHT V1, 40+ ms S IN I/aVL/V4/V5/V6] LEFT VENTRICULAR HYPERTROPHY AND ST-T CHANGE [VOLTAGE CRITERIA PLUS ST/T ABNORMALITY] ST AND T-WAVE ABNORMALITY, CONSIDER ANTEROLATERAL ISCHEMIA Compared to ECG 02/09/2025 22:37:32 NO SIGNIFICANT CHANGES Electronically Signed On 02-11-2025 16:32:43 CDT by Brien Del Toro M.D.
[2025-02-10 00:33] LABS: Troponin I 0.036 ng/mL (0.000-0.034)
[2025-02-10 00:52] VITALS: BP 128/62; PULSE 76; RESP 18; O2SAT 92
== END 2025-02-10 00:53 | disposition home or self-care (01) ==
PROVIDERS: Emergency Provider Emergency Medicine; PCP Family Medicine
DX: J43.9 Emphysema, unspecified (principal); I12.9 Hypertensive chronic kidney disease with stage 1 through stage 4 chronic kidney disease, or unspecified chronic kidney disease; N18.30 Chronic kidney disease, stage 3 unspecified; E55.9 Vitamin D deficiency, unspecified; E03.9 Hypothyroidism, unspecified; E78.5 Hyperlipidemia, unspecified; M81.0 Age-related osteoporosis without current pathological fracture; Z87.891 Personal history of nicotine dependence; Z90.710 Acquired absence of both cervix and uterus; R94.31 Abnormal electrocardiogram [ECG] [EKG]; I45.10 Unspecified right bundle-branch block; I51.7 Cardiomegaly
CPT/HCPCS: 36415; 71275; 80053; 83735; 84484; 85025; 85055; 93005; 96374; 99284; J2919; Q9967

== ENCOUNTER 2025-02-11 07:48 | Inpatient (IN) | payer MEDICARE, SELFPAY ==
[2025-02-11] VITALS (36 sets, daily range): BP systolic 114–149; BP diastolic 64–99; PULSE 76–89; RESP 18–33; TEMP 36.3–36.5; O2SAT 89–98; BMI 16.0
--- NOTE | ~2025-02-11 | XR_ITS ---
EXAMINATION: XR chest 1V portable DATE: 02/11/2025 08:59 INDICATION: Shortness of breath. Cough. TECHNIQUE: A single frontal view of the chest was obtained. COMPARISON: Chest 2 views 02/08/2025, chest CT 02/09/2025 FINDINGS: There are lucencies in the lungs, consistent with emphysema. There are calcified pleural pl aques bilaterally, which may be seen with asbestos exposure. Calcified bilateral lung nodules and cyn cified hilar lymph nodes are consistent with old granulomatous disease. There are airspace opacities at the lung bases. There is a small right pleural effusion. No pneumothorax. The heart size is normal . IMPRESSION: 1. Worsened airspace opacities at the lung bases, consistent with atelectasis versus pneumonia. 2. Small right pleural effusion. 3. Emphysema. Reviewed, dictated and finalized at location [facility]. IMPRESSION: 1. Worsened airspace opacities at the lung bases, consistent with atelectasis v ersus pneumonia. 2. Small right pleural effusion. 3. Emphysema.
--- NOTE | 2025-02-11 07:57 | ECG_ITS ---
Test Date: 2025-02-11 08:03:05 Measurements Intervals [place] Rate: 82 P: 78 ID: 112 QRS: 81 QRSD: 126 T: 62 QT: 371 QTc: 435 Interpretive Statements SINUS RHYTHM WITH SINUS ARRHYTHMIA WITH SHORT ID INTERVAL RIGHT BUNDLE BRANCH BLOCK [120+ ms QRS DURATION, UPRIGHT V1, 40+ ms S IN I/aVL/V4/V5/V6] LEFT VENTRICULAR HYPERTROPHY AND ST-T CHANGE [VOLTAGE CRITERIA PLUS ST/T ABNORMALITY] ST AND T-WAVE ABNORMALITY, CONSIDER ANTEROLATERAL ISCHEMIA Compared to ECG 02/09/2025 23:56:26 NO SIGNIFICANT CHANGES Electronically Signed On 02-11-2025 16:56:35 CDT by Brien Del Toro M.D.
[2025-02-11 08:17] LABS: Basophils Percent Auto 0.3 % (0.2-1.2); Hematocrit 44.1 % (37.0-47.0); Immature Granulocyte Absolute 0.06 K/mm3 (0.00-0.031); Immature Granulocyte Percent A 0.6 % (0-0.5); Lymphocytes Absolute Auto 1.01 K/mm3 (0.9-3.2); Lymphocytes Percent Auto 9.4 % (18.3-44.2); Mean Corpuscular HGB Conc 31.7 g/dl (32-36); Mean Corpuscular Hemoglobin 28.5 pg (26-34); Mean Corpuscular Volume 89.8 fl (80-100); Mean Platelet Volume 10.7 fl (7.4-10.4); Monocytes Absolute Auto 0.5 K/mm3 (0.1-0.6); Monocytes Percent Auto 4.8 % (2.6-8.5); Neutrophils Absolute Auto 9.1 K/mm3 (1.3-6.7); Neutrophils Percent Auto 84.9 % (45.5-73.1); Platelet Count Result 186 k/mm3 (150-375); Red Blood Count 4.91 M/mm3 (4.2-5.4); Red Cell Distribution Width 13.7 % (11.5-14.5); White Blood Count 10.7 K/mm3 (4.5-10.0)
[2025-02-11 08:27] LABS: Alanine Aminotransferase 52 U/L (6-35); Albumin Level 3.4 g/dL (3.5-5.1); Alkaline Phosphatase 76 U/L (38-126); Anion Gap 8 mmol/L (4-12); Aspartate Amino Transferase 91 U/L (14-36); Bilirubin,Total 0.3 mg/dL (0.2-1.3); Blood Urea Nitrogen 37 mg/dL (7-17); Calcium 9.1 mg/dL (8.4-10.2); Carbon Dioxide 29 mmol/L (22-30); Chloride 104 mmol/L (98-107); Estimated CRCL calculation 18 ml/min; Estimated Glomerular Filt Rate 36; Glucose 141 mg/dL (65-110); Potassium 4.4 mmol/L (3.4-5.0); Sodium 141 mmol/L (137-145)
--- NOTE | 2025-02-11 09:10 | ED_ITS ---
HPI - SOB/Dyspnea General Chief Complaint: Shortness of Breath/Dyspnea Stated Complaint: dyspnea Time Seen by Provider: 02/11/25 07:53 Source: patient and family Mode of arrival: EMS Limitations: no limitations History of Present Illness HPI Narrative: 84-year-old with a history of COPD not on any home oxygen, hypertension, hyperlipidemia here with a complaint of cough and shortness of breath. Son who is at the bedside states that this is the 3rd visit to the ER for in the last 1 week for difficulty breathing. She also mentions that he was coughing and wheezing this morning did give a home nebulizer treatment which helped little bit but continues to have difficulty in breathing. No fever or chills. Patient denies any chest pain Related Data Home Medications ?Medication ?Instructions ?Recorded ?Confirmed ?Last Taken ?Type levothyroxine 112 mcg tablet 112 mcg PO DAILY 02/09/25 Unknown History Allergies Allergy/AdvReac Type Severity Reaction Status Date / Time No Known Allergies Allergy Verified 02/09/25 13:57 Review of Systems 2 Review of Systems: All systems reviewed & are unremarkable except as noted in HPI and below Constitutional: Constitutional: Reports no additional constitutional complaints Eyes: Eyes: Reports no additional eye complaints ENT: Reports system reviewed and no additional complaints, except as documented Cardiovascular: Cardiovascular: Reports no additional cardiovascular complaints Respiratory: Respiratory: Reports cough and Reports dyspnea Gastrointestinal: Gastrointestinal: Reports as per HPI Integumentary/Breasts: Skin/Breast: Reports system reviewed and no additional complaints, except as docu Neurologic: Reports system reviewed and no additional complaints, except as documented Endocrine: Endocrine: Reports no additional endocrine complaints [facility] Past Medical History Medical History Emphysema of lung Osteoporosis Compression fracture CKD (chronic kidney disease) stage 3, GFR 30-59 ml/min Vitamin D deficiency Nicotine use Hypothyroid Hyperlipidemia Essential hypertension COPD (chronic obstructive pulmonary disease) Surgical History Surgical History H/O: hysterectomy (~1981) Family History Family History Sibling Bone cancer Daughter Diabetes mellitus Social History Social History Smoking packs per day: 0.5 Smoking cigarettes per day: 10.0 Years smoked: 65 Smoking pack-years: 32.50 Smoking status: Former smoker Tobacco type: cigarettes Smoking end date: 08/31/24 Alcohol intake: never Substance use: never Substance use type: does not use Do You Feel Safe in your Home?: Yes Lack of Transportation: No Lack of Food: Never True Current Housing: I Have Housing Concerned About Future Housing: No Difficulty Paying Gas/Electric Bills: No Difficulty Paying for Meds: No Currently Unemployed: No Education: High School Diploma/GED Difficulty w/ Childcare or Family Care: No Living arrangements: with family Occupation/Education: retired Gender identity (if verbalized by the patient): Female Spiritual care concerns: No Agree to blood products: Yes Exam 2 Narrative: GENERAL: Well-appearing, thin and frail, and in no acute distress. Hard of hearing HEAD: Normocephalic, atraumatic. EYES: PERRLA and EOMI. ENT: Nares clear, no rhinorrhea or epistaxis. Mucous membranes moist. NECK: Supple. CHEST: Clear to auscultation. No respiratory distress. HEART: Regular rate and rhythm. No murmur heard. Normal peripheral pulses. ABDOMEN: Soft, nontender, nondistended, normal active bowel sounds. EXTREMITIES: Normal range of motion. No edema. SKIN: Warm, dry, no rash. NEURO: No focal deficits. Alert and oriented x3. PSYCH: Normal mood and affect. Course Course Emergency Course: Patient is now saturating 92% on 2 L. Informed the patient and the son about her lab work, chest x-ray findings. Agreeable with admission discussed with Dr. Khanna to the patient. Vital Signs Vital signs: Vital Signs Temperature 36.4 C 02/11/25 07:48 Pulse Rate 89 02/11/25 07:48 Respiratory Rate 25 H 02/11/25 07:48 Blood Pressure 124/99 H 02/11/25 07:48 Pulse Oximetry 89 L 02/11/25 07:48 Oxygen Delivery Room Air 02/11/25 07:48 Temperature 36.4 C 02/11/25 07:48 Pulse Rate 80 02/11/25 09:00 Respiratory Rate 30 H 02/11/25 09:00 Blood Pressure 124/99 H 02/11/25 07:48 Pulse Oximetry 90 02/11/25 09:00 Oxygen Delivery Nasal Cannula 02/11/25 07:58 Oxygen Flow Rate 2 02/11/25 07:58 MDM - SOB/Dyspnea Differential Diagnosis Differential diagnosis: Likely acute exacerbation of chronic obstructive airways disease, congestive heart failure and community acquired pneumonia Medical Records Attestation: I reviewed the patient's medical records. Lab Data Attestation: I reviewed the patient's lab results. 02/11/25 08:08 02/11/25 08:08 Labs: Lab Results 02/11/25 Range/Units 08:08 WBC 10.7 H (4.5-10.0) K/mm3 RBC 4.91 (4.2-5.4) M/mm3 Hgb 14.0 (12.0-15.0) g/dL Hct 44.1 (37.0-47.0) % MCV 89.8 (80-100) fl MCH 28.5 (26-34) pg MCHC 31.7 L (32-36) g/dl RDW 13.7 (11.5-14.5) % Plt Count 186 D (150-375) k/mm3 MPV 10.7 H (7.4-10.4) fl Immature Gran % (Auto) 0.6 H (0-0.5) % Neut % (Auto) 84.9 H (45.5-73.1) % Lymph % (Auto) 9.4 L (18.3-44.2) % [place] % (Auto) 4.8 (2.6-8.5) % Eos % (Auto) 0.0 (0-4.4) % Baso % (Auto) 0.3 (0.2-1.2) % Lymph # (Auto) 1.01 (0.9-3.2) K/mm3 [place] # (Auto) 0.5 (0.1-0.6) K/mm3 Eos # (Auto) 0.0 (0-0.3) K/mm3 Baso # (Auto) 0.0 (0.0-0.1) K/mm3 Abs Immat Gran (auto) 0.06 H (0.00-0.031) K/mm3 Absolute Neuts (auto) 9.1 H (1.3-6.7) K/mm3 Absolute Nucleated RBC 0.000 (0.0-0.012) K/mm3 Nucleated RBC % 0.0 (0.0-0.2) % Sodium 141 (137-145) mmol/L Potassium 4.4 (3.4-5.0) mmol/L Chloride 104 (98-107) mmol/L Carbon Dioxide 29 (22-30) mmol/L Anion Gap 8 (4-12) mmol/L BUN 37 H (7-17) mg/dL Creatinine 1.41 H (0.7-1.0) mg/dL Estim Creat Clear Calc 18 ml/min Estimated GFR 36 L (59 - ) Glucose 141 H (65-110) mg/dL Calcium 9.1 (8.4-10.2) mg/dL Total Bilirubin 0.3 (0.2-1.3) mg/dL AST 91 H (14-36) U/L ALT 52 H (6-35) U/L Alkaline Phosphatase 76 (38-126) U/L Total Protein 6.0 L (6.3-8.2) g/dL Albumin 3.4 L (3.5-5.1) g/dL Imaging Data Radiologist's impression: ITS Impressions Chest X-Ray 02/11/25 09:01 IMPRESSION: 1. Worsened airspace opacities at the lung bases, consistent with atelectasis versus pneumonia. 2. Small right pleural effusion. 3. Emphysema. ECG Data EKG #1: ECG completion date: 02/11/25 ECG completion time: 08:03 EKG Interpretation: normal rate (82), sinus rhythm, RBBB, NL axis (T wave depression in the anterior , no significant change from the previous tracing) and no acute changes Discharge Plan Discharge Clinical Impression: COPD (chronic obstructive pulmonary disease) Qualifiers: COPD type: unspecified COPD Qualified Code(s): J44.9 - Chronic obstructive pulmonary disease, unspecified Pneumonia Qualifiers: Pneumonia type: due to unspecified organism Laterality: bilateral Lung location: lower lobe of lung Qualified Code(s): J18.9 - Pneumonia, unspecified organism Patient Disposition: Still a Patient Condition: Stable Instructions: Community Acquired Pneumonia (ED) Patient Language: German Prescriptions: No Action levothyroxine 112 mcg tablet 112 mcg PO DAILY budesonide-formoterol [Symbicort] 160-4.5 mcg/actuation HFA aerosol inhaler 2 puff inhalation Q12H Qty: 10.2 11RF Rx Instructions: Rinse mouth and spit after each use lisinopril 20 mg tablet 20 mg PO DAILY Qty: 90 1RF cholecalciferol (vitamin D3) 125 mcg (5,000 unit) capsule 125 mcg PO DAILY Qty: 90 1RF albuterol sulfate 90 mcg/actuation aero powdr breath act w/sensor 2 inh inhalation Q6H Qty: 1 2RF atorvastatin 20 mg tablet 20 mg PO QHS Qty: 90 1RF atenolol 100 mg tablet 100 mg PO DAILY Qty: 90 1RF ipratropium-albuterol 0.5 mg-3 mg(2.5 mg base)/3 mL solution for nebulization 3 ml inhalation Q6H PRN (Reason: shortness of breath or wheezing) Qty: 360 1RF prednisone 10 mg tablet 10 mg PO DIRECTED Qty: 30 0RF Rx Instructions: Take 4 tablets by mouth daily for 3 days, then 3 tablets for 3 days, 2 tablets for 3 days, 1 tablet for 3 days Follow-up/Referrals: Brooks Jones MD [Primary Care Provider] - Time of Disposition: 09:23
[2025-02-11] MEDS: SODIUM CHLORIDE 0.9% IV 1,000 ML 75 ML IV CONT ×2 (10:20→23:35)
[2025-02-11] MEDS: DOXYCYCLINE 100 MG/NS 100 ML 100 MG/100 ML BAG IVPB (10:44)
--- NOTE | 2025-02-11 12:42 | PC.NURSE ---
Meal tray ordered for pt and request to be sent to room 327.
--- NOTE | 2025-02-11 12:57 | ADMGEN ---
This patient, Elsie Kaye, was admitted to [facility] Surg Room 327-01. Patient/family oriented to hospital policies and general routines including ID bracelet, bed and alarms, visiting hours, pain management, procedures, bathroom and other care routines, personal items, smoking policy, room service/diet, and visiting hours. Information on how to activate the Rapid Response Team has been discussed. Patient/Family are encouraged to report perceived risks to care and to ask questions if they do not understand what they are told or what they should do.
[2025-02-11] MEDS: IPRATROPIUM 0.5 MG/ALBUTEROL SULFATE 2.5 MG AMPUL.NEB 3 ML INHALATION ×2 (14:01→20:56)
--- NOTE | 2025-02-11 14:25 | PM.IMHP ---
H&P: HPI History of Present Illness Date/Time: 02/11/25 14:25 Chief Complaint: Shortness of Breath Narrative: 84 y/o F presents here with shortness of breath with PMH of emphysema, osteoporosis, CKD, vitamin-D deficiency, hypothyroidism, HLD, HTN, and COPD. The patient presents here from home via EMS for further evaluation of shortness of breath. She reports an initial diagnosis of influenza A on 02/08 at [facility] [facility], symptom onset 6 days prior to tested positive. She was ultimately discharged home after shared decision making with the ER doctor concerning her flat but elevated troponins. She then followed up with her PCP on 02/09 for follow-up, encouraged to continue Symbicort and prednisone taper. She then returned to [place] [facility] [facility] on 02/09 for shortness of breath. During this visit a CT PE was obtained which showed no PE, bilateral pleural effusions more on the right side with adjacent atelectasis, underlying emphysematous changes, and lucency in the right lung base medially most likely emphysematous bulla, no pneumothorax is less likely. She was not discharged with any new prescriptions. Returning today, 02/11, for continued shortness of breath. She reports the shortness of breath has been ongoing for the past week. Shortness of breath is accompanied by wheezing, cough (chronic). She denies fever, chills, body aches, nausea, vomiting, or diarrhea. Patient utilized her home nebulizer with only partial relief. No baseline supplemental O2 requirement. Initial VS at presentation: 97.6? F, HR 89, RR 25, 89% on room air, and 124/99. ED workup showed: WBC 10.7, no anemia, creatinine 1.41 and GFR 36 (previously 1.24 and GFR 41 on 02/09/2025), AST 91, ALT 52, and CXR showed worsened airspace opacities in lung base since (atelectasis versus pneumonia), small right pleural effusion, and emphysema. EKG showed sinus rhythm with sinus arrhythmia with short SD interval, right bundle branch block, left ventricular hypertrophy and ST-T change. Review of Systems Review of Systems: All systems reviewed & are unremarkable except as noted in HPI and below PMFSH Past Medical History Medical History Former smoker Emphysema of lung Hyperlipidemia Hypothyroid Vitamin D deficiency Osteoporosis CKD (chronic kidney disease) stage 3, GFR 30-59 ml/min Compression fracture Nicotine use Essential hypertension COPD (chronic obstructive pulmonary disease) Surgical History Surgical History History of hysterectomy History of appendectomy Family History Family History Sibling Bone cancer Daughter Diabetes mellitus Social History Social History Smoking packs per day: 0.5 Smoking cigarettes per day: 10.0 Years smoked: 65 Smoking pack-years: 32.50 Smoking status: Former smoker Tobacco type: cigarettes Smoking end date: 08/31/24 Alcohol intake: never Substance use: never Substance use type: does not use Do You Feel Safe in your Home?: Yes Lack of Transportation: No Lack of Food: Never True Current Housing: I Have Housing Concerned About Future Housing: No Difficulty Paying Gas/Electric Bills: No Difficulty Paying for Meds: No Currently Unemployed: No Education: High School Diploma/GED Difficulty w/ Childcare or Family Care: No Living arrangements: with family Occupation/Education: retired Gender identity (if verbalized by the patient): Female Spiritual care concerns: No Agree to blood products: Yes Meds Home Medications and Allergies Home Medications ?Medication ?Instructions ?Recorded ?Confirmed ?Type lisinopril 20 mg tablet 20 mg PO DAILY #90 tabs 03/15/24 02/11/25 Rx cholecalciferol (vitamin D3) 125 125 mcg PO DAILY #90 caps 03/26/24 02/11/25 Rx mcg (5,000 unit) capsule budesonide-formoterol HFA 160 2 puff inhalation Q12H #10.2 grams 03/29/24 02/11/25 Rx mcg-4.5 mcg/actuation aerosol inhaler (Symbicort) albuterol sulfate 90 mcg/actuation 2 inh inhalation Q6H #1 ea 04/19/24 02/11/25 Rx breath activated powder inhaler,sensor atorvastatin 20 mg tablet 20 mg PO QHS #90 tabs 12/14/24 02/11/25 Rx atenolol 100 mg tablet 100 mg PO DAILY #90 tabs 12/29/24 02/11/25 Rx levothyroxine 112 mcg tablet 112 mcg PO DAILY 02/09/25 02/11/25 History ipratropium 0.5 mg-albuterol 3 mg 3 ml inhalation Q6H PRN shortness 02/10/25 02/11/25 Rx (2.5 mg base)/3 mL nebulization of breath or wheezing #360 mL soln prednisone 10 mg tablet 10 mg PO DIRECTED #30 tabs 02/10/25 02/11/25 Rx Allergies Allergy/AdvReac Type Severity Reaction Status Date / Time Fish Containing Products AdvReac Mild Nausea Verified 02/11/25 16:31 Vital Signs Vital Signs - 24 hr 02/11/25 07:48 02/11/25 07:49 02/11/25 07:58 Temperature 97.6 F Pulse Rate 89 Respiratory Rate 25 H Blood Pressure 124/99 H Pulse Oximetry 89 L 97 95 Oxygen Delivery Room Air Nasal Cannula Nasal Cannula Oxygen Flow Rate 2 2 02/11/25 08:00 02/11/25 08:15 02/11/25 08:30 Temperature Pulse Rate 87 82 81 Respiratory Rate 32 H 26 H 22 H Blood Pressure Pulse Oximetry 94 91 91 Oxygen Delivery Oxygen Flow Rate 02/11/25 08:45 02/11/25 09:00 02/11/25 09:03 Temperature Pulse Rate 85 80 80 Respiratory Rate 25 H 30 H 27 H Blood Pressure 123/70 Pulse Oximetry 92 90 93 Oxygen Delivery Oxygen Flow Rate 02/11/25 09:16 02/11/25 09:31 02/11/25 09:45 Temperature Pulse Rate 80 82 83 Respiratory Rate 29 H 24 H 26 H Blood Pressure 120/71 126/67 Pulse Oximetry 90 91 91 Oxygen Delivery Oxygen Flow Rate 02/11/25 09:46 02/11/25 10:00 02/11/25 10:01 Temperature Pulse Rate 81 82 84 Respiratory Rate 30 H 22 H 33 H Blood Pressure 125/69 126/67 Pulse Oximetry 91 96 Oxygen Delivery Oxygen Flow Rate 02/11/25 10:15 02/11/25 10:16 02/11/25 10:17 Temperature Pulse Rate 81 84 87 Respiratory Rate 25 H 31 H 32 H Blood Pressure 130/67 Pulse Oximetry 96 96 95 Oxygen Delivery Oxygen Flow Rate 02/11/25 10:30 02/11/25 10:31 02/11/25 10:45 Temperature Pulse Rate 82 82 77 Respiratory Rate 26 H 27 H 22 H Blood Pressure 119/68 Pulse Oximetry 92 93 93 Oxygen Delivery Oxygen Flow Rate 02/11/25 10:46 02/11/25 11:00 02/11/25 11:01 Temperature Pulse Rate 76 78 76 Respiratory Rate 23 H 23 H 23 H Blood Pressure 116/67 118/68 Pulse Oximetry 94 93 93 Oxygen Delivery Oxygen Flow Rate 02/11/25 11:15 02/11/25 11:16 02/11/25 11:30 Temperature Pulse Rate 77 79 80 Respiratory Rate 26 H 31 H 26 H Blood Pressure 129/68 Pulse Oximetry 93 93 94 Oxygen Delivery Oxygen Flow Rate 02/11/25 11:31 02/11/25 14:01 02/11/25 14:01 Temperature Pulse Rate 79 82 Respiratory Rate 25 H 18 Blood Pressure 116/64 Pulse Oximetry 94 94 Oxygen Delivery Nasal Cannula Oxygen Flow Rate 2 02/11/25 14:12 Temperature Pulse Rate 84 Respiratory Rate 18 Blood Pressure Pulse Oximetry Oxygen Delivery Oxygen Flow Rate Exam Const: General: comfortable and no acute distress Other: , female, modestly ill-appearing, thin HENMT: Face/Nose/Sinus: Normal nares present Mouth: Yes moist mucous membranes Other: + [place] Eyes: General: appearance normal, both eyes and all related structures Sclera: sclerae normal Pupils: Equal, round and reactive pupils present EOM: EOMs intact bilaterally Resp: Effort & Inspection: normal respiratory effort Other: faint intermittent expiratory wheeze. mild conversational dyspnea. Cardio: Rate: regular rate Rhythm: regular rhythm Other: S1-S2 present without murmur, rub, ectopy GI: Other: Abdomen soft, nondistended, nontender. Skin: General skin exam: normal color and no rashes or lesions noted Wounds: no wounds Neuro: Speech: normal speech Motor exam (neuro): 5/5 motor strength present throughout Sensory Exam: normal sensation Other: A&O x4 Extrem: General: normal to inspection Psych: Mental Status: mental status grossly normal Affect: normal affect Other: mild agitation/frustration. H&P: Results Labs Labs: Short CBC 02/11/25 Range/Units 08:08 WBC 10.7 H (4.5-10.0) K/mm3 Hgb 14.0 (12.0-15.0) g/dL Hct 44.1 (37.0-47.0) % Plt Count 186 D (150-375) k/mm3 BMP 02/11/25 08:08 Sodium 141 Potassium 4.4 Chloride 104 Carbon Dioxide 29 BUN 37 H Creatinine 1.41 H Glucose 141 H Calcium 9.1 Liver Function 02/11/25 Range/Units 08:08 Total Bilirubin 0.3 (0.2-1.3) mg/dL AST 91 H (14-36) U/L ALT 52 H (6-35) U/L Alkaline Phosphatase 76 (38-126) U/L Albumin 3.4 L (3.5-5.1) g/dL Assessment and Plan Assessment and plan (1) Pneumonia: Qualifiers: Laterality: bilateral Lung location: lower lobe of lung Pneumonia type: due to unspecified organism Qualified Code(s): J18.9 - Pneumonia, unspecified organism Code(s): J18.9 - Pneumonia, unspecified organism Status: Acute Assessment and Plan: - CXR: 1. Worsened airspace opacities at the lung bases, consistent with atelectasis versus pneumonia. 2. Small right pleural effusion. 3. Emphysema. - risk factors and complicating factors: COPD/emphysema, recent Flu A - started on CAP tx: ceftriaxone IV and doxycycline p.o. on 02/11 - supportive care Mucinex erik Tylenol p.r.n. Tessalon Perles p.r.n. DuoNebs erik - sputum culture - currently requiring supplemental O2: 2L NC - mild bump in LFTs, suspect this is secondary to systemic infection/pneumonia. Trend down. (2) COPD (chronic obstructive pulmonary disease): Qualifiers: COPD type: unspecified COPD Qualified Code(s): J44.9 - Chronic obstructive pulmonary disease, unspecified Code(s): J44.9 - Chronic obstructive pulmonary disease, unspecified Status: Acute Assessment and Plan: - DuoNebs erik - prednisone 40 mg p.o. daily x5 days - continue maintenance inhaler: Symbicort (3) Stage 3a chronic kidney disease (CKD): Code(s): N18.31 - Chronic kidney disease, stage 3a Status: Chronic Assessment and Plan: - creatinine 1.41 and GFR 36, previously 1.24 on 02/09 and 1.4 on 02/08 - history of CKD 3A - trend renal function - trend electrolytes, correct as needed (4) Essential hypertension: Code(s): I10 - Essential (primary) hypertension Status: Chronic Assessment and Plan: - chronic, currently 116/64 - continue home medications: Lisinopril 20 mg daily - monitor Plan Diet: Heart healthy GI Prophylaxis: Not currently indicated DVT Prophylaxis: SCDs Lines: Peripheral Code Status: Full code Quality VTE Prophylaxis VTE prophylaxis: mechanical ordered Hospitalist MIPS Advance Care Plan I have confirmed that the patient's Advanced Care Plan is present, code status is documented, or surrogate decision maker is listed in patient medical record.: Yes Medication Reconciliation I have utilized all available resources to obtain, update and review the patients current medications (includes all prescriptions, OTC, herbals, cannabis, and nutritional supplements).: Yes
--- NOTE | 2025-02-11 14:27 | PC.NURSE ---
call to [facility] to confirm home med list
[2025-02-11] MEDS: predniSONE 20 MG TABLET 40 MG PO (15:58)
[2025-02-11] MEDS: ATORVASTATIN 20 MG TABLET PO (20:19)
[2025-02-11] MEDS: DOXYCYCLINE HYCLATE 100 MG TABLET PO (20:20)
[2025-02-11] MEDS: guaiFENesin 12 HR 600 MG TABCR PO (20:20)
[2025-02-11] MEDS: FLUTICASONE/SALMETEROL 115-21 MCG INHALER 1 PUFF 2 PUFF INHALATION (20:56)
[2025-02-12] VITALS (14 sets, daily range): BP systolic 136–178; BP diastolic 78–90; PULSE 72–84; RESP 16–20; TEMP 36.5–37.2; O2SAT 93–99
[2025-02-12] MEDS: IPRATROPIUM 0.5 MG/ALBUTEROL SULFATE 2.5 MG AMPUL.NEB 3 ML INHALATION ×4 (02:59→20:43)
[2025-02-12 06:20] LABS: Basophils Percent Auto 0.2 % (0.2-1.2); Hematocrit 35.7 % (37.0-47.0); Hemoglobin 11.4 g/dL (12.0-15.0); Immature Granulocyte Absolute 0.06 K/mm3 (0.00-0.031); Immature Granulocyte Percent A 1.1 % (0-0.5); Lymphocytes Percent Auto 9.3 % (18.3-44.2); Mean Corpuscular HGB Conc 31.9 g/dl (32-36); Mean Corpuscular Hemoglobin 28.1 pg (26-34); Mean Corpuscular Volume 88.1 fl (80-100); Mean Platelet Volume 10.6 fl (7.4-10.4); Monocytes Absolute Auto 0.3 K/mm3 (0.1-0.6); Monocytes Percent Auto 5.8 % (2.6-8.5); Neutrophils Absolute Auto 4.5 K/mm3 (1.3-6.7); Neutrophils Percent Auto 83.6 % (45.5-73.1); Platelet Count Result 154 k/mm3 (150-375); Red Blood Count 4.05 M/mm3 (4.2-5.4); Red Cell Distribution Width 13.8 % (11.5-14.5); White Blood Count 5.4 K/mm3 (4.5-10.0)
[2025-02-12 06:43] LABS: Anion Gap 6 mmol/L (4-12); Blood Urea Nitrogen 36 mg/dL (7-17); Calcium 8.5 mg/dL (8.4-10.2); Carbon Dioxide 26 mmol/L (22-30); Chloride 109 mmol/L (98-107); Estimated CRCL calculation 22 ml/min; Estimated Glomerular Filt Rate 46; Glucose 116 mg/dL (65-110); Sodium 141 mmol/L (137-145)
[2025-02-12] MEDS: AZITHROMYCIN 250 MG TABLET 500 MG PO (09:41)
[2025-02-12] MEDS: atenoloL 50 MG TABLET 100 MG PO (09:41)
[2025-02-12] MEDS: guaiFENesin 12 HR 600 MG TABCR PO ×2 (09:42→20:13)
[2025-02-12] MEDS: LEVOTHYROXINE SODIUM 112 MCG TABLET PO (09:42)
[2025-02-12] MEDS: predniSONE 20 MG TABLET 40 MG PO (09:42)
[2025-02-12] MEDS: CHOLECALCIFEROL 5,000 UNITS TABLET 5000 UNITS PO (09:42)
[2025-02-12] MEDS: lisinopriL 20 MG TABLET PO (09:42)
[2025-02-12] MEDS: FLUTICASONE/SALMETEROL 115-21 MCG INHALER 1 PUFF 2 PUFF INHALATION ×2 (10:18→20:44)
--- NOTE | 2025-02-12 13:07 | P.PNIM_ITS ---
Progress Note: A&P Assessment and Plan (1) Pneumonia: Qualifiers: Laterality: bilateral Lung location: lower lobe of lung Pneumonia type: due to unspecified organism Qualified Code(s): J18.9 - Pneumonia, unspecified organism Code(s): J18.9 - Pneumonia, unspecified organism Status: Acute Assessment and Plan: * CXR: 1. Worsened airspace opacities at the lung bases, consistent with atelectasis versus pneumonia. 2. Small right pleural effusion. 3. Emphysema. * risk factors and complicating factors: COPD/emphysema, recent Flu A * started on CAP tx: ceftriaxone IV and doxycycline p.o. on 02/11 * switch to Rocephin and azithromycin * Mucinex erik * Tylenol p.r.n. * Tessalon Perles p.r.n. * DuoNemaximilian erik * sputum culture * currently requiring supplemental O2: 2L * incentive spirometer (2) COPD (chronic obstructive pulmonary disease): Qualifiers: COPD type: unspecified COPD Qualified Code(s): J44.9 - Chronic obs tructive pulmonary disease, unspecified Code(s): J44.9 - Chronic obstructive pulmonary disease, unspecified Status: Acute Assessment and Plan: * Tawana erik * prednisone 40 mg p.o. daily x5 days * continue maintenance inhaler: Symbicort * patient reports she quit smoking back in September 19, 2024 * wean oxygen as tolerated if unable to wean will need home O2 walk study prior to discharge (3) Stage 3a chronic kidney disease (CKD): Code(s): N18.31 - Chronic kidney disease, stage 3a Status: Chronic Assessment and Plan: * creatinine 1.41 and GFR 36, previously 1.24 on 02/09 and 1.4 on 02/08 * history of CKD 3A * trend renal function * trend electrolytes, correct as needed 02/12/25: * Improved 1.14 (4) Essential hypertension: Code(s): I10 - Essential (primary) hypertension Status: Chronic Assessment and Plan: * chronic, currently 116/64 * continue home medications: Lisinopril 20 mg daily * monitor per unit protocol (5) Severe protein-calorie malnutrition (Kennedy: less than 60% of standard weight): Code(s): E43 - Unspecified severe protein-calorie malnutrition Status: Acute Assessment and Plan: * dietitian consulted * supplements with each meal Plan Code status: Full code per patient DVT prophylaxis: SCD Stress ulcer prophylaxis: Protonix 40 daily PT/OT notes: Pending Disposition: patient was admitted to the medical unit further treatment of pneumonia and COPD exacerbation continue to wean oxygen as tolerated however unable to wean patient may need home O2 walk study prior to discharge. PT/OT ordered for any recommendations for discharge planning Time Spent With Patient Time with patient: 15 - 25 minutes Subjective Date/time seen: 02/12/25 13:07 Interval history: Patient is an 84-year-old female who was admitted for further treatment pneumonia and COPD exacerbation 02/12/25: Assumed Care Patient still with SOB and on 2L NC supplemental oxygen. Patient denied CP, N/V and has been afebrile. Patient also denied productive cough Review of Systems Review of Systems: All systems reviewed & are unremarkable except as noted in HPI and below Exam Narrative: cachectic and hard of hearing Const: General: comfortable and no acute distress HENMT: Mouth: Yes moist mucous membranes Eyes: General: appearance normal, both eyes and all related structures Pupils: Equal, round and reactive pupils present Resp: Effort & Inspection: normal respiratory effort Auscultation: wheezes scattered wheezes Cardio: Rate: regular rate Rhythm: regular rhythm GI: GI Palp: Yes Soft to palpation Auscultation: normal bowel sounds Skin: General skin exam: normal color and no rashes or lesions noted Neuro: Speech: normal speech Extrem: General: normal to inspection Psych: Mental Status: mental status grossly normal Objective Data Vital Signs Vital Signs: Vital Signs - 24 hr 02/11/25 13:10 02/11/25 14:00 02/11/25 14:01 Temperature 97.3 F L Pulse Rate 80 Respiratory Rate 18 18 Blood Pressure 114/64 Pulse Oximetry 96 97 94 Oxygen Delivery Nasal Cannula Nasal Cannula Oxygen Flow Rate 2 2 02/11/25 14:01 02/11/25 14:12 02/11/25 20:20 Temperature Pulse Rate 82 84 82 Respiratory Rate 18 18 18 Blood Pressure Pulse Oximetry 98 Oxygen Delivery Nasal Cannula Oxygen Flow Rate 2 02/11/25 20:52 02/11/25 21:10 02/11/25 21:17 Temperature 97.7 F Pulse Rate 82 84 Respiratory Rate 18 20 Blood Pressure 149/86 H Pulse Oximetry 98 97 Oxygen Delivery Nasal Cannula Oxygen Flow Rate 1 02/12/25 03:01 02/12/25 03:06 02/12/25 04:36 Temperature 99.0 F Pulse Rate 84 84 80 Respiratory Rate 18 18 16 Blood Pressure 178/90 H Pulse Oximetry 96 Oxygen Delivery Oxygen Flow Rate 02/12/25 09:41 02/12/25 10:18 02/12/25 10:18 Temperature Pulse Rate 80 72 Respiratory Rate 18 Blood Pressure Pulse Oximetry 96 Oxygen Delivery Nasal Cannula Oxygen Flow Rate 1.5 02/12/25 10:33 02/12/25 10:42 02/12/25 11:25 Temperature Pulse Rate 76 Respiratory Rate 18 Blood Pressure Pulse Oximetry 97 95 Oxygen Delivery Room Air Room Air Oxygen Flow Rate Intake/Output Intake/Output: Intake & Output 02/09/25 02/10/25 02/11/25 02/12/25 23:59 23:59 23:59 23:59 Intake Total 1570 768 Output Total 100 Balance 1470 768 Meds/Results Medications: Active Medications Generic Name Dose Route Start Last Admin Trade Name Freq PRN Reason Stop Dose Admin Acetaminophen 650 mg 02/11/25 09:30 Acetaminophen 325 Mg Tablet PO Q4H PRN Mild Pain (1-3) or Fever Albuterol/Ipratropium 3 ml 02/11/25 14:00 02/12/25 10:18 Ipratropium 0.5 Mg/Albuterol Sulfate 2.5 Mg Ampul.Neb 3 Ml INHALATION 3 ml Q6HRT ERIK Administration Atenolol 100 mg 02/12/25 09:00 02/12/25 09:41 Atenolol 50 Mg Tablet PO 100 mg DAILY ERIK Administration Atorvastatin Calcium 20 mg 02/11/25 21:00 02/11/25 20:19 Atorvastatin 20 Mg Tablet PO 20 mg QHS ERIK Administration Azithromycin 500 mg 02/12/25 09:00 02/12/25 09:41 Azithromycin 250 Mg Tablet PO 500 mg DAILY ERIK Administration Benzonatate 100 mg 02/11/25 14:47 Benzonatate 100 Mg Capsule PO TID PRN Cough Guaifenesin 600 mg 02/11/25 21:00 02/12/25 09:42 Guaifenesin 12 Hr 600 Mg Tabcr PO 600 mg Q12HR ERIK Administration Ceftriaxone Sodium 1 gm in 50 mls @ 100 mls/hr 02/12/25 09:00 02/12/25 09:42 Rocephin 1 Gm/Ns 50 Ml IVPB 100 mls/hr Q24H ERIK Administration Levothyroxine Sodium 112 mcg 02/12/25 09:00 02/12/25 09:42 Levothyroxine Sodium 112 Mcg Tablet PO 112 mcg DAILY ERIK Administration Lisinopril 20 mg 02/12/25 09:00 02/12/25 09:42 Lisinopril 20 Mg Tablet PO 20 mg DAILY ERIK Administration Morphine Sulfate 2 mg 02/11/25 09:30 Morphine Sulfate (*Crx) 2 Mg/Ml Inj IV PUSH Q2H PRN Pain Rated 7-10 Ondansetron HCl 4 mg 02/11/25 09:30 Ondansetron Inj 4 Mg/2 Ml Vial IV PUSH Q4H PRN Nausea Prednisone 40 mg 02/11/25 14:50 02/12/25 09:42 Prednisone 20 Mg Tablet PO 02/16/25 14:49 40 mg DAILY@0800 ERIK Administration Fluticasone/Salmeterol 2 puff 02/11/25 20:00 02/12/25 10:18 Fluticasone/Salmeterol 115-21 Mcg Inhaler 1 Puff INHALATION 2 puff Q12HRT ERIK Administration Vitamin D 5,000 units 02/12/25 09:00 02/12/25 09:42 Cholecalciferol 5,000 Units Tablet PO 5,000 units DAILY ERIK Administration Radiology Results: ITS Impressions Chest X-Ray 02/11/25 09:01 IMPRESSION: 1. Worsened airspace opacities at the lung bases, consistent with atelectasis versus pneumonia. 2. Small right pleural effusion. 3. Emphysema. Labs Labs: Laboratory Results - last 24 hr 02/12/25 06:09 WBC 5.4 RBC 4.05 L Hgb 11.4 L Hct 35.7 L MCV 88.1 MCH 28.1 MCHC 31.9 L RDW 13.8 Plt Count 154 MPV 10.6 H Immature Gran % (Auto) 1.1 H Neut % (Auto) 83.6 H Lymph % (Auto) 9.3 L [place] % (Auto) 5.8 Eos % (Auto) 0.0 Baso % (Auto) 0.2 Lymph # (Auto) 0.50 L [place] # (Auto) 0.3 Eos # (Auto) 0.0 Baso # (Auto) 0.0 Abs Immat Gran (auto) 0.06 H Absolute Neuts (auto) 4.5 Absolute Nucleated RBC 0.000 Nucleated RBC % 0.0 Sodium 141 Potassium 4.0 Chloride 109 H Carbon Dioxide 26 Anion Gap 6 BUN 36 H Creatinine 1.14 H Estim Creat Clear Calc 22 Estimated GFR 46 L Glucose 116 H Calcium 8.5 Quality VTE Prophylaxis VTE prophylaxis: mechanical ordered -Patient's previous records reviewed on admission -ER notes reviewed in detail on admission -discussed all findings and current treatment plan with patient/Family/POA -Consultations reviewed for recommendations -Patient's disposition for safe discharge discussed with case making machine operator Dictation performed by [employer] direct speech recognition software, therefore coil tester variants and typographical errors may occur. Hospitalist MIPS Advance Care Plan I have confirmed that the patient's Advanced Care Plan is present, code status is documented, or surrogate decision maker is listed in patient medical record.: Yes Medication Reconciliation I have utilized all available resources to obtain, update and review the patients current medications (includes all prescriptions, OTC, herbals, cannabis, and nutritional supplements).: Yes The patient is not eligible for med reconciliation; the patient is in a emergent medical situation where delaying treatment would jeopardize the patients health.: No
[2025-02-12] MEDS: ATORVASTATIN 20 MG TABLET PO (20:13)
[2025-02-13] VITALS (11 sets, daily range): BP systolic 113–167; BP diastolic 76–93; PULSE 71–81; RESP 16–18; TEMP 36.4–37.6; O2SAT 91–100
[2025-02-13 06:09] LABS: Hematocrit 34.9 % (37.0-47.0); Hemoglobin 11.2 g/dL (12.0-15.0); Mean Corpuscular HGB Conc 32.1 g/dl (32-36); Mean Corpuscular Hemoglobin 28.1 pg (26-34); Mean Corpuscular Volume 87.5 fl (80-100); Mean Platelet Volume 10.4 fl (7.4-10.4); Platelet Count Result 182 k/mm3 (150-375); Red Blood Count 3.99 M/mm3 (4.2-5.4); Red Cell Distribution Width 13.6 % (11.5-14.5); White Blood Count 8.5 K/mm3 (4.5-10.0)
[2025-02-13 06:25] LABS: Alanine Aminotransferase 28 U/L (6-35); Albumin Level 2.7 g/dL (3.5-5.1); Alkaline Phosphatase 55 U/L (38-126); Anion Gap 6 mmol/L (4-12); Aspartate Amino Transferase 30 U/L (14-36); Bilirubin,Total 0.3 mg/dL (0.2-1.3); Blood Urea Nitrogen 36 mg/dL (7-17); Calcium 8.8 mg/dL (8.4-10.2); Carbon Dioxide 26 mmol/L (22-30); Chloride 107 mmol/L (98-107); Estimated CRCL calculation 22 ml/min; Estimated Glomerular Filt Rate 44; Glucose 94 mg/dL (65-110); Sodium 139 mmol/L (137-145)
[2025-02-13] MEDS: IPRATROPIUM 0.5 MG/ALBUTEROL SULFATE 2.5 MG AMPUL.NEB 3 ML INHALATION ×3 (07:48→20:48)
[2025-02-13] MEDS: FLUTICASONE/SALMETEROL 115-21 MCG INHALER 1 PUFF 2 PUFF INHALATION ×2 (07:48→20:49)
[2025-02-13] MEDS: atenoloL 50 MG TABLET 100 MG PO (08:38)
[2025-02-13] MEDS: predniSONE 20 MG TABLET 40 MG PO (08:38)
[2025-02-13] MEDS: guaiFENesin 12 HR 600 MG TABCR PO ×2 (08:41→21:32)
[2025-02-13] MEDS: AZITHROMYCIN 250 MG TABLET 500 MG PO (08:41)
[2025-02-13] MEDS: CHOLECALCIFEROL 5,000 UNITS TABLET 5000 UNITS PO (08:41)
[2025-02-13] MEDS: LEVOTHYROXINE SODIUM 112 MCG TABLET PO (08:41)
[2025-02-13] MEDS: lisinopriL 20 MG TABLET PO (08:41)
--- NOTE | 2025-02-13 09:54 | P.PNIM_ITS ---
Progress Note: A&P Assessment and Plan (1) Acute respiratory failure with hypoxia: Code(s): J96.01 - Acute respiratory failure with hypoxia Status: Acute Assessment and Plan: * Secondary to influenza/pneumonia/COPD exacerbation * Patient requiring supplemental oxygen to maintain 92% will continue to wean as tolerated * Continue with underlying treatment pneumonia, COPD and influenza (2) Pneumonia: Qualifiers: Laterality: bilateral Lung location: lower lobe of lung Pneumonia type: due to unspecified organism Qualified Code(s): J18.9 - Pneumonia, unspecified organism Code(s): J18.9 - Pneumonia, unspecified organism Status: Acute Assessment and Plan: * CXR: 1. Worsened airspace opacities at the lung bases, consistent with atelectasis versus pneumonia. 2. Small right pleural effusion. 3. Emphysema. * risk factors and complicating factors: COPD/emphysema, recent Flu A * started on CAP tx: ceftriaxone IV and doxycycline p.o. on 02/11 * switch to Rocephin and azithromycin * Mucinex erik * Tylenol p.r.n. * Tessalon Perles p.r.n. * DuoNebs erik * sputum culture * currently requiring supplemental O2: 2L * incentive spirometer (3) COPD (chronic obstructive pulmonary disease): Qualifiers: COPD type: unspecified COPD Qualified Code(s): J44.9 - Chronic obstructive pulmonary disease, unspecified Code(s): J44.9 - Chronic obstructive pulmonary disease, unspecified Status: Acute Assessment and Plan: * DuoNebs erik * prednisone 40 mg p.o. daily x5 days * continue maintenance inhaler: Symbicort * patient reports she quit smoking back in September 19, 2024 * wean oxygen as tolerated if unable to wean will need home O2 walk study prior to discharge (4) Influenza A: Code(s): J10.1 - Influenza due to other identified influenza virus with other respiratory manifestations Status: Acute Assessment and Plan: * Tested positive 02/08 * Supportive care * out of the window for Tamiflu * Acetaminophen for fever and mild pain * Encourage hydration (5) Stage 3a chronic kidney disease (CKD): Code(s): N18.31 - Chronic kidney disease, stage 3a Status: Chronic Assessment and Plan: * creatinine 1.41 and GFR 36, previously 1.24 on 02/09 and 1.4 on 02/08 * history of CKD 3A * trend renal function * trend electrolytes, correct as needed 02/12/25: * Improved 1.14 (6) Essential hypertension: Code(s): I10 - Essential (primary) hypertension Status: Chronic Assessment and Plan: * chronic, currently 116/64 * continue home medications: Lisinopril 20 mg daily * monitor per unit protocol (7) Severe protein-calorie malnutrition (Kennedy: less than 60% of standard weight): Code(s): E43 - Unspecified severe protein-calorie malnutrition Status: Acute Assessment and Plan: * dietitian consulted * supplements with each meal Plan Code status: Full code per patient DVT prophylaxis: SCD Stress ulcer prophylaxis: Protonix 40 daily PT/OT notes: Pending Disposition: patient was admitted to the medical unit further treatment of pneumonia and COPD exacerbation continue to wean oxygen as tolerated however unable to wean patient may need home O2 walk study prior to discharge. PT/OT ordered for any recommendations for discharge planning Time Spent With Patient Time with patient: 15 - 25 minutes Subjective Date/time seen: 02/13/25 09:54 Interval history: Patient is an 84-year-old female who was admitted for further treatment pneumonia and COPD exacerbation 02/13/25: Patient feeling mildly better today but still weak with productive cough. Has been weaned to 1.5L supplemental oxygen. Patient denied CP,N/V but did endorse poor appetite Review of Systems Review of Systems: All systems reviewed & are unremarkable except as noted in HPI and below Exam Narrative: cachectic and hard of hearing Const: General: comfortable and no acute distress Other: , female, modestly ill-appearing, thin HENMT: Face/Nose/Sinus: Normal nares present Mouth: Yes moist mucous membranes Other: + SHISHMAREF IRA Eyes: General: appearance normal, both eyes and all related structures Sclera: sclerae normal Pupils: Equal, round and reactive pupils present EOM: EOMs intact bilaterally Resp: Effort & Inspection: normal respiratory effort Auscultation: wheezes scattered wheezes Other: faint intermittent expiratory wheeze. mild conversational dyspnea. Cardio: Rate: regular rate Rhythm: regular rhythm Other: S1-S2 present without murmur, rub, ectopy GI: Auscultation: normal bowel sounds Other: Abdomen soft, nondistended, nontender. Skin: General skin exam: normal color and no rashes or lesions noted Wounds: no wounds Neuro: Cranial nerves: Yes Equal, round and reactive pupils present Speech: normal speech Motor exam (neuro): 5/5 motor strength present throughout Sensory Exam: normal sensation Other: A&O x4 Extrem: General: normal to inspection Psych: Mental Status: mental status grossly normal Affect: normal affect Other: mild agitation/frustration. Objective Data Vital Signs Vital Signs: Vital Signs - 24 hr 02/12/25 10:18 02/12/25 10:18 02/12/25 10:33 Temperature Pulse Rate 72 76 Respiratory Rate 18 18 Blood Pressure Pulse Oximetry 96 Oxygen Delivery Nasal Cannula Oxygen Flow Rate 1.5 02/12/25 10:42 02/12/25 11:25 02/12/25 14:00 Temperature 98.3 F Pulse Rate 75 Respiratory Rate 20 Blood Pressure 142/87 H Pulse Oximetry 97 95 95 Oxygen Delivery Room Air Room Air Oxygen Flow Rate 02/12/25 15:52 02/12/25 16:08 02/12/25 20:46 Temperature Pulse Rate 76 76 Respiratory Rate 18 18 Blood Pressure Pulse Oximetry 93 Oxygen Delivery Room Air Oxygen Flow Rate 02/12/25 20:46 02/12/25 20:46 02/12/25 20:52 Temperature 97.7 F Pulse Rate 79 73 73 Respiratory Rate 16 16 16 Blood Pressure 136/78 Pulse Oximetry 99 Oxygen Delivery Oxygen Flow Rate 02/13/25 05:25 02/13/25 07:49 02/13/25 07:49 Temperature 97.8 F Pulse Rate 76 71 Respiratory Rate 16 16 Blood Pressure 167/93 H Pulse Oximetry 93 91 Oxygen Delivery Room Air Oxygen Flow Rate 02/13/25 08:00 02/13/25 08:38 Temperature Pulse Rate 72 81 Respiratory Rate 16 Blood Pressure Pulse Oximetry Oxygen Delivery Oxygen Flow Rate Intake/Output Intake/Output: Intake & Output 02/10/25 02/11/25 02/12/25 02/13/25 23:59 23:59 23:59 23:59 Intake Total 1570 938 550 Output Total 100 Balance 1470 938 550 Meds/Results Medications: Active Medications Generic Name Dose Route Start Last Admin Trade Name Freq PRN Reason Stop Dose Admin Acetaminophen 650 mg 02/11/25 09:30 Acetaminophen 325 Mg Tablet PO Q4H PRN Mild Pain (1-3) or Fever Albuterol/Ipratropium 3 ml 02/11/25 14:00 02/13/25 07:48 Ipratropium 0.5 Mg/Albuterol Sulfate 2.5 Mg Ampul.Neb 3 Ml INHALATION 3 ml Q6HRT ERIK Administration Atenolol 100 mg 02/12/25 09:00 02/13/25 08:38 Atenolol 50 Mg Tablet PO 100 mg DAILY ERIK Administration Atorvastatin Calcium 20 mg 02/11/25 21:00 02/12/25 20:13 Atorvastatin 20 Mg Tablet PO 20 mg QHS ERIK Administration Azithromycin 500 mg 02/12/25 09:00 02/13/25 08:41 Azithromycin 250 Mg Tablet PO 500 mg DAILY ERIK Administration Benzonatate 100 mg 02/11/25 14:47 Benzonatate 100 Mg Capsule PO TID PRN Cough Guaifenesin 600 mg 02/11/25 21:00 02/13/25 08:41 Guaifenesin 12 Hr 600 Mg Tabcr PO 600 mg Q12HR ERIK Administration Ceftriaxone Sodium 1 gm in 50 mls @ 100 mls/hr 02/12/25 09:00 02/13/25 08:41 Rocephin 1 Gm/Ns 50 Ml IVPB 100 mls/hr Q24H ERIK Administration Levothyroxine Sodium 112 mcg 02/12/25 09:00 02/13/25 08:41 Levothyroxine Sodium 112 Mcg Tablet PO 112 mcg DAILY ERIK Administration Lisinopril 20 mg 02/12/25 09:00 02/13/25 08:41 Lisinopril 20 Mg Tablet PO 20 mg DAILY ERIK Administration Morphine Sulfate 2 mg 02/11/25 09:30 Morphine Sulfate (*Crx) 2 Mg/Ml Inj IV PUSH Q2H PRN Pain Rated 7-10 Ondansetron HCl 4 mg 02/11/25 09:30 Ondansetron Inj 4 Mg/2 Ml Vial IV PUSH Q4H PRN Nausea Prednisone 40 mg 02/11/25 14:50 02/13/25 08:38 Prednisone 20 Mg Tablet PO 02/16/25 14:49 40 mg DAILY@0800 ERIK Administration Fluticasone/Salmeterol 2 puff 02/11/25 20:00 02/13/25 07:48 Fluticasone/Salmeterol 115-21 Mcg Inhaler 1 Puff INHALATION 2 puff Q12HRT ERIK Administration Vitamin D 5,000 units 02/12/25 09:00 02/13/25 08:41 Cholecalciferol 5,000 Units Tablet PO 5,000 units DAILY ERIK Administration Radiology Results: ITS Impressions Chest X-Ray 02/11/25 09:01 IMPRESSION: 1. Worsened airspace opacities at the lung bases, consistent with atelectasis versus pneumonia. 2. Small right pleural effusion. 3. Emphysema. Labs Labs: Laboratory Results - last 24 hr 02/13/25 05:45 WBC 8.5 RBC 3.99 L Hgb 11.2 L Hct 34.9 L MCV 87.5 MCH 28.1 MCHC 32.1 RDW 13.6 Plt Count 182 MPV 10.4 Sodium 139 Potassium 4.0 Chloride 107 Carbon Dioxide 26 Anion Gap 6 BUN 36 H Creatinine 1.18 H Estim Creat Clear Calc 22 Estimated GFR 44 L Glucose 94 Calcium 8.8 Total Bilirubin 0.3 AST 30 ALT 28 Alkaline Phosphatase 55 Total Protein 5.0 L Albumin 2.7 L Quality VTE Prophylaxis VTE prophylaxis: mechanical ordered -Patient's previous records reviewed on admission -ER notes reviewed in detail on admission -discussed all findings and current treatment plan with patient/Family/POA -Consultations reviewed for recommendations -Patient's disposition for safe discharge discussed with counter caser Dictation performed by [employer] direct speech recognition software, therefore hat liner variants and typographical errors may occur. Hospitalist MIPS Advance Care Plan I have confirmed that the patient's Advanced Care Plan is present, code status is documented, or surrogate decision maker is listed in patient medical record.: Yes Medication Reconciliation I have utilized all available resources to obtain, update and review the patients current medications (includes all prescriptions, OTC, herbals, cannabis, and nutritional supplements).: Yes The patient is not eligible for med reconciliation; the patient is in a emergent medical situation where delaying treatment would jeopardize the patients health.: No
[2025-02-13] MEDS: ATORVASTATIN 20 MG TABLET PO (21:32)
[2025-02-14] VITALS (12 sets, daily range): BP systolic 125–175; BP diastolic 81–92; PULSE 65–696; RESP 16–18; TEMP 36.6–36.9; O2SAT 92–98; BMI 16.0
[2025-02-14] MEDS: IPRATROPIUM 0.5 MG/ALBUTEROL SULFATE 2.5 MG AMPUL.NEB 3 ML INHALATION ×3 (02:04→21:42)
[2025-02-14 05:38] LABS: Hematocrit 34.9 % (37.0-47.0); Hemoglobin 11.1 g/dL (12.0-15.0); Mean Corpuscular HGB Conc 31.8 g/dl (32-36); Mean Corpuscular Hemoglobin 27.7 pg (26-34); Mean Platelet Volume 10.2 fl (7.4-10.4); Platelet Count Result 173 k/mm3 (150-375); Red Blood Count 4.01 M/mm3 (4.2-5.4); Red Cell Distribution Width 13.2 % (11.5-14.5); White Blood Count 8.2 K/mm3 (4.5-10.0)
[2025-02-14] MEDS: LEVOTHYROXINE SODIUM 112 MCG TABLET PO (08:51)
[2025-02-14] MEDS: AZITHROMYCIN 250 MG TABLET 500 MG PO (08:51)
[2025-02-14] MEDS: predniSONE 20 MG TABLET 40 MG PO (08:51)
[2025-02-14] MEDS: lisinopriL 20 MG TABLET PO (08:51)
[2025-02-14] MEDS: atenoloL 50 MG TABLET 100 MG PO (08:51)
[2025-02-14] MEDS: guaiFENesin 12 HR 600 MG TABCR PO ×2 (08:51→20:19)
[2025-02-14] MEDS: CHOLECALCIFEROL 5,000 UNITS TABLET 5000 UNITS PO (08:51)
[2025-02-14] MEDS: FLUTICASONE/SALMETEROL 115-21 MCG INHALER 1 PUFF 2 PUFF INHALATION ×2 (09:27→21:42)
[2025-02-14 10:01] LABS: Alanine Aminotransferase 28 U/L (6-35); Albumin Level 2.6 g/dL (3.5-5.1); Alkaline Phosphatase 56 U/L (38-126); Anion Gap 7 mmol/L (4-12); Aspartate Amino Transferase 30 U/L (14-36); Bilirubin,Total 0.3 mg/dL (0.2-1.3); Blood Urea Nitrogen 38 mg/dL (7-17); Calcium 8.6 mg/dL (8.4-10.2); Carbon Dioxide 25 mmol/L (22-30); Chloride 107 mmol/L (98-107); Estimated CRCL calculation 21 ml/min; Estimated Glomerular Filt Rate 43; Glucose 92 mg/dL (65-110); Sodium 139 mmol/L (137-145)
--- NOTE | 2025-02-14 14:33 | P.PNIM_ITS ---
Progress Note: A&P Assessment and Plan (1) Acute respiratory failure with hypoxia: Code(s): J96.01 - Acute respiratory failure with hypoxia Status: Acute Assessment and Plan: * Secondary to influenza/pneumonia/COPD exacerbation * Patient requiring supplemental oxygen to maintain 92% will continue to wean as tolerated * Continue with underlying treatment pneumonia, COPD and influenza 02/14: * Continue to wean O2 (2) Pneumonia: Qualifiers: Laterality: bilateral Lung location: lower lobe of lung Pneumonia type: due to unspecified organism Qualified Code(s): J18.9 - Pneumonia, unspecified organism Code(s): J18.9 - Pneumonia, unspecified organism Status: Acute Assessment and Plan: * CXR: 1. Worsened airspace opacities at the lung bases, consistent with atelectasis versus pneumonia. 2. Small right pleural effusion. 3. Emphysema. * risk factors and complicating factors: COPD/emphysema, recent Flu A * started on CAP tx: ceftriaxone IV and doxycycline p.o. on 02/11 * switch to Rocephin and azithromycin * Mucinex erik * Tylenol p.r.n. * Tessalon Perles p.r.n. * DuoNebs erik * sputum culture * currently requiring supplemental O2: 2L * incentive spirometer (3) COPD (chronic obstructive pulmonary disease): Qualifiers: COPD type: unspecified COPD Qualified Code(s): J44.9 - Chronic obstructive pulmonary disease, unspecified Code(s): J44.9 - Chronic obstructive pulmonary disease, unspecified Status: Acute Assessment and Plan: * DuoNebs erik * prednisone 40 mg p.o. daily x5 days * continue maintenance inhaler: Symbicort * patient reports she quit smoking back in September 19, 2024 * wean oxygen as tolerated if unable to wean will need home O2 walk study prior to discharge (4) Influenza A: Code(s): J10.1 - Influenza due to other identified influenza virus with other respiratory manifestations Status: Acute Assessment and Plan: * Tested positive 02/08 * Supportive care * out of the window for Tamiflu * Acetaminophen for fever and mild pain * Encourage hydration (5) Stage 3a chronic kidney disease (CKD): Code(s): N18.31 - Chronic kidney disease, stage 3a Status: Chronic Assessment and Plan: * creatinine 1.41 and GFR 36, previously 1.24 on 02/09 and 1.4 on 02/08 * history of CKD 3A * trend renal function * trend electrolytes, correct as needed 02/12/25: * Improved 1.14 (6) Essential hypertension: Code(s): I10 - Essential (primary) hypertension Status: Chronic Assessment and Plan: * chronic, currently 116/64 * continue home medications: Lisinopril 20 mg daily * monitor per unit protocol L (7) Severe protein-calorie malnutrition (Kennedy: less than 60% of standard weight): Code(s): E43 - Unspecified severe protein-calorie malnutrition Status: Acute Assessment and Plan: * dietitian consulted * supplements with each meal Plan Code status: Full code per patient DVT prophylaxis: SCD Stress ulcer prophylaxis: Protonix 40 daily PT/OT notes: Pending Disposition: patient was admitted to the medical unit further treatment of pneumonia and COPD exacerbation continue to wean oxygen as tolerated however unable to wean patient may need home O2 walk study prior to discharge. CC working on rehab placement. Time Spent With Patient Time with patient: 15 - 25 minutes Subjective Date/time seen: 02/14/25 14:33 Interval history: Patient is an 84-year-old female who was admitted for further treatment pneumonia and COPD exacerbation 02/14/25: Patient feeling better today SOB improving and down to 1L NC continue to wean. Patient still with generalized weakness attempting to set-up Rehab. May need home oxygen walk study. Denied CP, N/V but still poor appetite. Review of Systems Review of Systems: All systems reviewed & are unremarkable except as noted in HPI and below Exam Narrative: cachectic and hard of hearing Const: General: comfortable and no acute distress Other: , female, modestly ill-appearing, thin HENMT: Face/Nose/Sinus: Normal nares present Mouth: Yes moist mucous membranes Other: + CROW Eyes: General: appearance normal, both eyes and all related structures Sclera: sclerae normal Pupils: Equal, round and reactive pupils present EOM: EOMs intact bilaterally Resp: Effort & Inspection: normal respiratory effort Auscultation: wheezes scattered wheezes Other: faint intermittent expiratory wheeze. mild conversational dyspnea. Cardio: Rate: regular rate Rhythm: regular rhythm Other: S1-S2 present without murmur, rub, ectopy GI: Auscultation: normal bowel sounds Other: Abdomen soft, nondistended, nontender. Skin: General skin exam: normal color and no rashes or lesions noted Wounds: no wounds Neuro: Cranial nerves: Yes Equal, round and reactive pupils present Speech: normal speech Motor exam (neuro): 5/5 motor strength present throughout Sensory Exam: normal sensation Other: A&O x4 Extrem: General: normal to inspection Psych: Mental Status: mental status grossly normal Affect: normal affect Other: mild agitation/frustration. Objective Data Vital Signs Vital Signs: Vital Signs - 24 hr 02/13/25 20:34 02/13/25 20:46 02/13/25 20:56 Temperature 99.7 F H Pulse Rate 72 72 Respiratory Rate 16 18 Blood Pressure 134/76 Pulse Oximetry 100 95 Oxygen Delivery Nasal Cannula Oxygen Flow Rate 1.5 Fraction of Inspired Oxygen 02/13/25 20:58 02/14/25 02:04 02/14/25 02:14 Temperature Pulse Rate 72 72 72 Respiratory Rate 18 18 18 Blood Pressure Pulse Oximetry Oxygen Delivery Oxygen Flow Rate Fraction of Inspired Oxygen 02/14/25 04:56 02/14/25 07:40 02/14/25 08:51 Temperature 98.4 F Pulse Rate 69 696 H Respiratory Rate 16 Blood Pressure 175/92 H Pulse Oximetry 95 95 Oxygen Delivery Nasal Cannula Oxygen Flow Rate 1.5 Fraction of Inspired Oxygen 02/14/25 09:19 02/14/25 09:19 02/14/25 09:27 Temperature Pulse Rate 73 70 Respiratory Rate 16 16 Blood Pressure Pulse Oximetry 92 Oxygen Delivery Nasal Cannula Oxygen Flow Rate 1 Fraction of Inspired Oxygen 24 Intake/Output Intake/Output: Intake & Output 02/11/25 02/12/25 02/13/25 02/14/25 23:59 23:59 23:59 23:59 Intake Total 1570 602 023 2906 Output Total 100 Balance 1470 750 424 2181 Meds/Results Medications: Active Medications Generic Name Dose Route Start Last Admin Trade Name Freq PRN Reason Stop Dose Admin Acetaminophen 650 mg 02/11/25 09:30 Acetaminophen 325 Mg Tablet PO Q4H PRN Mild Pain (1-3) or Fever Albuterol/Ipratropium 3 ml 02/11/25 14:00 02/14/25 09:19 Ipratropium 0.5 Mg/Albuterol Sulfate 2.5 Mg Ampul.Neb 3 Ml INHALATION 3 ml Q6HRT ERIK Administration Atenolol 100 mg 02/12/25 09:00 02/14/25 08:51 Atenolol 50 Mg Tablet PO 100 mg DAILY ERIK Administration Atorvastatin Calcium 20 mg 02/11/25 21:00 02/13/25 21:32 Atorvastatin 20 Mg Tablet PO 20 mg QHS ERIK Administration Azithromycin 500 mg 02/12/25 09:00 02/14/25 08:51 Azithromycin 250 Mg Tablet PO 500 mg DAILY ERIK Administration Benzonatate 100 mg 02/11/25 14:47 Benzonatate 100 Mg Capsule PO TID PRN Cough Guaifenesin 600 mg 02/11/25 21:00 02/14/25 08:51 Guaifenesin 12 Hr 600 Mg Tabcr PO 600 mg Q12HR ERIK Administration Ceftriaxone Sodium 1 gm in 50 mls @ 100 mls/hr 02/12/25 09:00 02/14/25 09:20 Rocephin 1 Gm/Ns 50 Ml IVPB Infused Q24H ERIK Infusion Levothyroxine Sodium 112 mcg 02/12/25 09:00 02/14/25 08:51 Levothyroxine Sodium 112 Mcg Tablet PO 112 mcg DAILY ERIK Administration Lisinopril 20 mg 02/12/25 09:00 02/14/25 08:51 Lisinopril 20 Mg Tablet PO 20 mg DAILY ERIK Administration Morphine Sulfate 2 mg 02/11/25 09:30 Morphine Sulfate (*Crx) 2 Mg/Ml Inj IV PUSH Q2H PRN Pain Rated 7-10 Ondansetron HCl 4 mg 02/11/25 09:30 Ondansetron Inj 4 Mg/2 Ml Vial IV PUSH Q4H PRN Nausea Prednisone 40 mg 02/11/25 14:50 02/14/25 08:51 Prednisone 20 Mg Tablet PO 02/16/25 14:49 40 mg DAILY@0800 ERIK Administration Fluticasone/Salmeterol 2 puff 02/11/25 20:00 02/13/25 20:49 Fluticasone/Salmeterol 115-21 Mcg Inhaler 1 Puff INHALATION 2 puff Q12HRT ERIK Administration Vitamin D 5,000 units 02/12/25 09:00 02/14/25 08:51 Cholecalciferol 5,000 Units Tablet PO 5,000 units DAILY ERIK Administration Radiology Results: ITS Impressions Chest X-Ray 02/11/25 09:01 IMPRESSION: 1. Worsened airspace opacities at the lung bases, consistent with atelectasis versus pneumonia. 2. Small right pleural effusion. 3. Emphysema. Labs Labs: Laboratory Results - last 24 hr 02/14/25 02/14/25 05:27 05:28 WBC 8.2 RBC 4.01 L Hgb 11.1 L Hct 34.9 L MCV 87.0 MCH 27.7 MCHC 31.8 L RDW 13.2 Plt Count 173 MPV 10.2 Sodium 139 Potassium 4.0 Chloride 107 Carbon Dioxide 25 Anion Gap 7 BUN 38 H Creatinine 1.19 H Estim Creat Clear Calc 21 Estimated GFR 43 L Glucose 92 Calcium 8.6 Total Bilirubin 0.3 AST 30 ALT 28 Alkaline Phosphatase 56 Total Protein 5.0 L Albumin 2.6 L Quality VTE Prophylaxis VTE prophylaxis: mechanical ordered -Patient's previous records reviewed on admission -ER notes reviewed in detail on admission -discussed all findings and current treatment plan with patient/Family/POA -Consultations reviewed for recommendations -Patient's disposition for safe discharge discussed with behavioral health case manager Dictation performed by [email or web address] direct speech recognition software, therefore sewing machine mechanic variants and typographical errors may occur. Hospitalist MIPS Advance Care Plan I have confirmed that the patient's Advanced Care Plan is present, code status is documented, or surrogate decision maker is listed in patient medical record.: Yes Medication Reconciliation I have utilized all available resources to obtain, update and review the patients current medications (includes all prescriptions, OTC, herbals, cannabis, and nutritional supplements).: Yes The patient is not eligible for med reconciliation; the patient is in a emergent medical situation where delaying treatment would jeopardize the patients health.: No
--- NOTE | 2025-02-14 15:58 | PCRCNOTE ---
Window of time for administration has passed. See next scheduled administration.
[2025-02-14] MEDS: ATORVASTATIN 20 MG TABLET PO (20:16)
[2025-02-15] VITALS (10 sets, daily range): BP systolic 147–150; BP diastolic 78–83; PULSE 64–75; RESP 14–20; TEMP 36.4–37.1; O2SAT 95–99
[2025-02-15 06:42] LABS: Hematocrit 35.2 % (37.0-47.0); Hemoglobin 11.3 g/dL (12.0-15.0); Mean Corpuscular HGB Conc 32.1 g/dl (32-36); Mean Corpuscular Hemoglobin 27.9 pg (26-34); Mean Corpuscular Volume 86.9 fl (80-100); Mean Platelet Volume 10.3 fl (7.4-10.4); Platelet Count Result 201 k/mm3 (150-375); Red Blood Count 4.05 M/mm3 (4.2-5.4); Red Cell Distribution Width 13.2 % (11.5-14.5); White Blood Count 9.5 K/mm3 (4.5-10.0)
[2025-02-15 06:56] LABS: Alanine Aminotransferase 30 U/L (6-35); Albumin Level 2.7 g/dL (3.5-5.1); Alkaline Phosphatase 55 U/L (38-126); Anion Gap 6 mmol/L (4-12); Aspartate Amino Transferase 26 U/L (14-36); Bilirubin,Total 0.4 mg/dL (0.2-1.3); Blood Urea Nitrogen 42 mg/dL (7-17); Calcium 8.7 mg/dL (8.4-10.2); Carbon Dioxide 26 mmol/L (22-30); Chloride 105 mmol/L (98-107); Estimated CRCL calculation 22 ml/min; Estimated Glomerular Filt Rate 46; Glucose 103 mg/dL (65-110); Potassium 4.2 mmol/L (3.4-5.0); Sodium 137 mmol/L (137-145)
[2025-02-15] MEDS: predniSONE 20 MG TABLET 40 MG PO (09:17)
[2025-02-15] MEDS: guaiFENesin 12 HR 600 MG TABCR PO ×2 (09:17→20:36)
[2025-02-15] MEDS: CHOLECALCIFEROL 5,000 UNITS TABLET 5000 UNITS PO (09:17)
[2025-02-15] MEDS: AZITHROMYCIN 250 MG TABLET 500 MG PO (09:18)
[2025-02-15] MEDS: AMOXICILLIN/CLAVULANATE K 500-125 MG TAB 1 TABLET PO ×2 (09:18→20:35)
[2025-02-15] MEDS: atenoloL 50 MG TABLET 100 MG PO (09:18)
[2025-02-15] MEDS: lisinopriL 20 MG TABLET PO (09:18)
[2025-02-15] MEDS: LEVOTHYROXINE SODIUM 112 MCG TABLET PO (09:18)
[2025-02-15] MEDS: FLUTICASONE/SALMETEROL 115-21 MCG INHALER 1 PUFF 2 PUFF INHALATION ×2 (09:36→21:18)
[2025-02-15] MEDS: IPRATROPIUM 0.5 MG/ALBUTEROL SULFATE 2.5 MG AMPUL.NEB 3 ML INHALATION ×3 (09:36→21:18)
--- NOTE | 2025-02-15 10:36 | P.PNIM_ITS ---
Progress Note: A&P Assessment and Plan (1) Acute respiratory failure with hypoxia: Code(s): J96.01 - Acute respiratory failure with hypoxia Status: Acute Assessment and Plan: * Secondary to influenza/pneumonia/COPD exacerbation * Patient requiring supplemental oxygen to maintain 92% will continue to wean as tolerated * Continue with underlying treatment pneumonia, COPD and influenza 02/14: * Continue to wean O2 (2) Pneumonia: Qualifiers: Laterality: bilateral Lung location: lower lobe of lung Pneumonia type: due to unspecified organism Qualified Code(s): J18.9 - Pneumonia, unspecified organism Code(s): J18.9 - Pneumonia, unspecified organism Status: Acute Assessment and Plan: * CXR: 1. Worsened airspace opacities at the lung bases, consistent with atelectasis versus pneumonia. 2. Small right pleural effusion. 3. Emphysema. * risk factors and complicating factors: COPD/emphysema, recent Flu A * started on CAP tx: ceftriaxone IV and doxycycline p.o. on 02/11 * switch to Rocephin and azithromycin * Mucinex erik * Tylenol p.r.n. * Tessalon Perles p.r.n. * DuoNebs erik * sputum culture * currently requiring supplemental O2: 2L * incentive spirometer (3) COPD (chronic obstructive pulmonary disease): Qualifiers: COPD type: unspecified COPD Qualified Code(s): J44.9 - Chronic obstructive pulmonary disease, unspecified Code(s): J44.9 - Chronic obstructive pulmonary disease, unspecified Status: Acute Assessment and Plan: * DuoNebs erik * prednisone 40 mg p.o. daily x5 days * continue maintenance inhaler: Symbicort * patient reports she quit smoking back in September 19, 2024 * wean oxygen as tolerated if unable to wean will need home O2 walk study prior to discharge (4) Influenza A: Code(s): J10.1 - Influenza due to other identified influenza virus with other respiratory manifestations Status: Acute Assessment and Plan: * Tested positive 02/08 * Supportive care * out of the window for Tamiflu * Acetaminophen for fever and mild pain * Encourage hydration (5) Stage 3a chronic kidney disease (CKD): Code(s): N18.31 - Chronic kidney disease, stage 3a Status: Chronic Assessment and Plan: * creatinine 1.41 and GFR 36, previously 1.24 on 02/09 and 1.4 on 02/08 * history of CKD 3A * trend renal function * trend electrolytes, correct as needed 02/12/25: * Improved 1.14 (6) Essential hypertension: Code(s): I10 - Essential (primary) hypertension Status: Chronic Assessment and Plan: * chronic, currently 116/64 * continue home medications: Lisinopril 20 mg daily * monitor per unit protocol (7) Severe protein-calorie malnutrition (Kennedy: less than 60% of standard weight): Code(s): E43 - Unspecified severe protein-calorie malnutrition Status: Acute Assessment and Plan: * dietitian consulted * supplements with each meal Plan Code status: Full code per patient DVT prophylaxis: SCD Stress ulcer prophylaxis: Protonix 40 daily PT/OT notes: Pending Disposition: patient was admitted to the medical unit further treatment of pneumonia and COPD exacerbation continue to wean oxygen as tolerated however unable to wean patient may need home O2 walk study prior to discharge. CC working on rehab placement. Time Spent With Patient Time with patient: 15 - 25 minutes Subjective Date/time seen: 02/15/25 10:36 Interval history: Patient is an 84-year-old female who was admitted for further treatment pneumonia and COPD exacerbation 02/15/25: Review of Systems Review of Systems: All systems reviewed & are unremarkable except as noted in HPI and below Exam Narrative: cachectic and hard of hearing Const: General: comfortable and no acute distress Other: , female, modestly ill-appearing, thin HENMT: Face/Nose/Sinus: Normal nares present Mouth: Yes moist mucous membranes Other: + [place] Eyes: General: appearance normal, both eyes and all related structures Sclera: sclerae normal Pupils: Equal, round and reactive pupils present EOM: EOMs intact bilaterally Resp: Effort & Inspection: normal respiratory effort Auscultation: wheezes scattered wheezes Other: faint intermittent expiratory wheeze. mild conversational dyspnea. Cardio: Rate: regular rate Rhythm: regular rhythm Other: S1-S2 present without murmur, rub, ectopy GI: Auscultation: normal bowel sounds Other: Abdomen soft, nondistended, nontender. Skin: General skin exam: normal color and no rashes or lesions noted Wounds: no wounds Neuro: Cranial nerves: Yes Equal, round and reactive pupils present Speech: normal speech Motor exam (neuro): 5/5 motor strength present throughout Sensory Exam: normal sensation Other: A&O x4 Extrem: General: normal to inspection Psych: Mental Status: mental status grossly normal Affect: normal affect Other: mild agitation/frustration. Objective Data Vital Signs Vital Signs: Vital Signs - 24 hr 02/14/25 14:00 02/14/25 20:45 02/14/25 21:42 Temperature 97.8 F 98.5 F Pulse Rate 71 77 65 Respiratory Rate 18 16 16 Blood Pressure 125/81 149/82 H Pulse Oximetry 98 98 Oxygen Delivery Oxygen Flow Rate Fraction of Inspired Oxygen 02/14/25 21:52 02/14/25 21:54 02/15/25 06:00 Temperature 97.5 F L Pulse Rate 67 66 Respiratory Rate 16 20 Blood Pressure 150/78 H Pulse Oximetry 96 99 Oxygen Delivery Nasal Cannula Oxygen Flow Rate 2 Fraction of Inspired Oxygen 28 02/15/25 08:00 02/15/25 09:37 02/15/25 09:37 Temperature Pulse Rate 75 Respiratory Rate 16 Blood Pressure Pulse Oximetry 99 97 Oxygen Delivery Nasal Cannula Nasal Cannula Oxygen Flow Rate 1.5 2 Fraction of Inspired Oxygen 02/15/25 09:45 Temperature Pulse Rate 72 Respiratory Rate 16 Blood Pressure Pulse Oximetry Oxygen Delivery Oxygen Flow Rate Fraction of Inspired Oxygen Intake/Output Intake/Output: Intake & Output 02/12/25 02/13/25 02/14/25 02/15/25 23:59 23:59 23:59 23:59 Intake Total 709 591 4926 100 Balance 516 396 2282 100 Meds/Results Medications: Active Medications Generic Name Dose Route Start Last Admin Trade Name Freq PRN Reason Stop Dose Admin Acetaminophen 650 mg 02/11/25 09:30 Acetaminophen 325 Mg Tablet PO Q4H PRN Mild Pain (1-3) or Fever Albuterol/Ipratropium 3 ml 02/11/25 14:00 02/15/25 09:36 Ipratropium 0.5 Mg/Albuterol Sulfate 2.5 Mg Ampul.Neb 3 Ml INHALATION 3 ml Q6HRT ERIK Administration Amoxicillin/Clavulanate Potassium 1 tablet 02/15/25 09:00 02/15/25 09:18 Amoxicillin/Clavulanate K 500-125 Mg Tab PO 02/17/25 21:01 1 tablet Q12HR ERIK Administration Atenolol 100 mg 02/12/25 09:00 02/15/25 09:18 Atenolol 50 Mg Tablet PO 100 mg DAILY ERIK Administration Atorvastatin Calcium 20 mg 02/11/25 21:00 02/14/25 20:16 Atorvastatin 20 Mg Tablet PO 20 mg QHS ERIK Administration Benzonatate 100 mg 02/11/25 14:47 Benzonatate 100 Mg Capsule PO TID PRN Cough Guaifenesin 600 mg 02/11/25 21:00 02/15/25 09:17 Guaifenesin 12 Hr 600 Mg Tabcr PO 600 mg Q12HR ERIK Administration Levothyroxine Sodium 112 mcg 02/12/25 09:00 02/15/25 09:18 Levothyroxine Sodium 112 Mcg Tablet PO 112 mcg DAILY ERIK Administration Lisinopril 20 mg 02/12/25 09:00 02/15/25 09:18 Lisinopril 20 Mg Tablet PO 20 mg DAILY ERIK Administration Morphine Sulfate 2 mg 02/11/25 09:30 Morphine Sulfate (*Crx) 2 Mg/Ml Inj IV PUSH Q2H PRN Pain Rated 7-10 Ondansetron HCl 4 mg 02/11/25 09:30 Ondansetron Inj 4 Mg/2 Ml Vial IV PUSH Q4H PRN Nausea Prednisone 40 mg 02/11/25 14:50 02/15/25 09:17 Prednisone 20 Mg Tablet PO 02/16/25 14:49 40 mg DAILY@0800 ERIK Administration Fluticasone/Salmeterol 2 puff 02/11/25 20:00 02/15/25 09:36 Fluticasone/Salmeterol 115-21 Mcg Inhaler 1 Puff INHALATION 2 puff Q12HRT ERIK Administration Vitamin D 5,000 units 02/12/25 09:00 02/15/25 09:17 Cholecalciferol 5,000 Units Tablet PO 5,000 units DAILY ERIK Administration Radiology Results: ITS Impressions Chest X-Ray 02/11/25 09:01 IMPRESSION: 1. Worsened airspace opacities at the lung bases, consistent with atelectasis versus pneumonia. 2. Small right pleural effusion. 3. Emphysema. Labs Labs: Laboratory Results - last 24 hr 02/15/25 06:14 WBC 9.5 RBC 4.05 L Hgb 11.3 L Hct 35.2 L MCV 86.9 MCH 27.9 MCHC 32.1 RDW 13.2 Plt Count 201 MPV 10.3 Sodium 137 Potassium 4.2 Chloride 105 Carbon Dioxide 26 Anion Gap 6 BUN 42 H Creatinine 1.14 H Estim Creat Clear Calc 22 Estimated GFR 46 L Glucose 103 Calcium 8.7 Total Bilirubin 0.4 AST 26 ALT 30 Alkaline Phosphatase 55 Total Protein 5.0 L Albumin 2.7 L Quality VTE Prophylaxis VTE prophylaxis: mechanical ordered -Patient's previous records reviewed on admission -ER notes reviewed in detail on admission -discussed all findings and current treatment plan with patient/Family/POA -Consultations reviewed for recommendations -Patient's disposition for safe discharge discussed with bottle caser Dictation performed by [employer] direct speech recognition software, therefore gear cutting machine set up operator variants and typographical errors may occur. Hospitalist MIPS Advance Care Plan I have confirmed that the patient's Advanced Care Plan is present, code status is documented, or surrogate decision maker is listed in patient medical record.: Yes Medication Reconciliation I have utilized all available resources to obtain, update and review the patients current medications (includes all prescriptions, OTC, herbals, cannabis, and nutritional supplements).: Yes The patient is not eligible for med reconciliation; the patient is in a emergent medical situation where delaying treatment would jeopardize the patients health.: No
--- NOTE | 2025-02-15 15:29 | P.DS_ITS ---
DS: Admitting Diagnosis Discharge Date 02/15/2025 Admitting Diagnosis Pneumonia/COPD exacerbation DS: Discharge Diagnosis Discharge Diagnosis (1) Acute respiratory failure with hypoxia: Code(s): J96.01 - Acute respiratory failure with hypoxia Status: Acute Assessment and Plan: * Secondary to influenza/pneumonia/COPD exacerbation * Patient requiring supplemental oxygen to maintain 92% will continue to wean as tolerated * Continue with underlying treatment pneumonia, COPD and influenza 02/14: * Continue to wean O2 (2) Pneumonia: Qualifiers: Laterality: bilateral Lung location: lower lobe of lung Pneumonia type: due to unspecified organism Qualified Code(s): J18.9 - Pneumonia, unspecified organism Code(s): J18.9 - Pneumonia, unspecified organism Status: Acute Assessment and Plan: * CXR: 1. Worsened airspace opacities at the lung bases, consistent with atelectasis versus pneumonia. 2. Small right pleural effusion. 3. Emphysema. * risk factors and complicating factors: COPD/emphysema, recent Flu A * started on CAP tx: ceftriaxone IV and doxycycline p.o. on 02/11 * switch to Rocephin and azithromycin * Mucinex erik * Tylenol p.r.n. * Tessalon Perles p.r.n. * DuoNebs erik * sputum culture * currently requiring supplemental O2: 2L * incentive spirometer (3) COPD (chronic obstructive pulmonary disease): Qualifiers: COPD type: unspecified COPD Qualified Code(s): J44.9 - Chronic obstructive pulmonary disease, unspecified Code(s): J44.9 - Chronic obstructive pulmonary disease, unspecified Status: Acute Assessment and Plan: * Tawana erik * prednisone 40 mg p.o. daily x5 days * continue maintenance inhaler: Symbicort * patient reports she quit smoking back in September 19, 2024 * wean oxygen as tolerated if unable to wean will need home O2 walk study prior to discharge (4) Influenza A: Code(s): J10.1 - Influenza due to other identified influenza virus with other respiratory manifestations Status: Acute Assessment and Plan: * Tested positive 02/08 * Supportive care * out of the window for Tamiflu * Acetaminophen for fever and mild pain * Encourage hydration (5) Stage 3a chronic kidney disease (CKD): Code(s): N18.31 - Chronic kidney disease, stage 3a Status: Chronic Assessment and Plan: * creatinine 1.41 and GFR 36, previously 1.24 on 02/09 and 1.4 on 02/08 * history of CKD 3A * trend renal function * trend electrolytes, correct as needed 02/12/25: * Improved 1.14 (6) Essential hypertension: Code(s): I10 - Essential (primary) hypertension Status: Chronic Assessment and Plan: * chronic, currently 116/64 * continue home medications: Lisinopril 20 mg daily * monitor per unit protocol (7) Severe protein-calorie malnutrition (Kennedy: less than 60% of standard weight): Code(s): E43 - Unspecified severe protein-calorie malnutrition Status: Acute Assessment and Plan: * dietitian consulted * supplements with each meal Plan Disposition: Discharge to intermediate DS: Summary Hospital Course Reason for hospitalization: Pneumonia/COPD exacerbation Hospital Course: Patient was a 84 y/o F presents here with shortness of breath with PMH of emphysema, osteoporosis, CKD, vitamin-D deficiency, hypothyroidism, HLD, HTN, and COPD. The patient had presented here from home via EMS for further evaluation of shortness of breath. She reports an initial diagnosis of influenza A on 02/08 at [place] [facility], symptom onset 6 days prior to tested positive. She was ultimately discharged home after shared decision making with the ER doctor concerning her flat but elevated troponins. She then followed up with her PCP on 02/09 for follow-up, encouraged to continue Symbicort and prednisone taper. She then returned to [place] [facility] on 02/09 for shortness of breath. During this visit a CT PE was obtained which showed no PE, bilateral pleural effusions more on the right side with adjacent atelectasis, underlying emphysematous changes, and lucency in the right lung base medially most likely emphysematous bulla, no pneumothorax is less likely. She was not discharged with any new prescriptions. Returning today, 02/11, for continued shortness of breath. She reports the shortness of breath has been ongoing for the past week. Shortness of breath is accompanied by wheezing, cough (chronic). Status at Discharge Functional status at discharge: uses cane/walker Overall status at discharge: patient is progressing back to baseline Time Spent with Patient Time attestation: Total time spent providing and/or coordinating discharge services: Time spent: Greater than 30 minutes Exam Narrative: cachectic and hard of hearing Const: General: comfortable and no acute distress Other: , female, modestly ill-appearing, thin HENMT: Face/Nose/Sinus: Normal nares present Mouth: Yes moist mucous membranes Other: + [place] Eyes: General: appearance normal, both eyes and all related structures Sclera: sclerae normal Pupils: Equal, round and reactive pupils present EOM: EOMs intact bilaterally Resp: Effort & Inspection: normal respiratory effort Auscultation: diminished lung sounds Other: faint intermittent expiratory wheeze. mild conversational dyspnea. Cardio: Rate: regular rate Rhythm: regular rhythm Other: S1-S2 present without murmur, rub, ectopy GI: Auscultation: normal bowel sounds Other: Abdomen soft, nondistended, nontender. Skin: General skin exam: normal color and no rashes or lesions noted Wounds: no wounds Neuro: Cranial nerves: Yes Equal, round and reactive pupils present Speech: normal speech Motor exam (neuro): 5/5 motor strength present throughout Sensory Exam: normal sensation Other: A&O x4 Extrem: General: normal to inspection Psych: Mental Status: mental status grossly normal Affect: normal affect Other: mild agitation/frustration. DS: Data Data Completed and Pending Labs on day of discharge: Labs from last 24 hours 02/15/25 06:14 WBC 9.5 RBC 4.05 L Hgb 11.3 L Hct 35.2 L MCV 86.9 MCH 27.9 MCHC 32.1 RDW 13.2 Plt Count 201 MPV 10.3 Sodium 137 Potassium 4.2 Chloride 105 Carbon Dioxide 26 Anion Gap 6 BUN 42 H Creatinine 1.14 H Estim Creat Clear Calc 22 Estimated GFR 46 L Glucose 103 Calcium 8.7 Total Bilirubin 0.4 AST 26 ALT 30 Alkaline Phosphatase 55 Total Protein 5.0 L Albumin 2.7 L Preliminary micro results at discharge 02/11/25 10:15 Blood Culture - Preliminary Blood 02/11/25 10:13 Blood Culture - Preliminary Blood Imaging Radiologist's impression: Radiology Results: ITS Impressions Chest X-Ray 02/11/25 09:01 IMPRESSION: 1. Worsened airspace opacities at the lung bases, consistent with atelectasis versus pneumonia. 2. Small right pleural effusion. 3. Emphysema. Discharge Plan Discharge Attending physician on discharge: Amalia Sanchez Discharging Clinician: Afsaneh Flores Anticipated Discharge Date/Time: 02/15/25 15:23 Patient Disposition: SNF Activity: may shower and as tolerated Diet: as tolerated Discharge Instructions: Pneumonia/COPD * Please complete antibiotic as indicated * You have completed your course of prednisone while hospitalized * Supplemental oxygen as needed to maintain 92% * Follow-up with Pulmonary outpatient * Continue to use your inhalers as needed * I encourage protein shake with each meal How can you care for yourself at home? ? Keep track of any new symptoms or changes in your symptoms. ? Rest until you feel better. ? Be safe with medicines. Take your medicines exactly as prescribed. Call your doctor if you think you are having a problem with your medicine. ? Do not drive after taking a prescription pain medicine. ? Ensure to follow-up with primary care physician as indicated and provide updated medication list provided to you at discharge. When should you call for help? Call 911 anytime you think you may need emergency care. For example, call if: ? You passed out (lost consciousness). Call your doctor now or seek immediate medical care if: ? You have new symptoms like fever, difficulty breathing, Chest pain, vomiting, or rash. ? You have new or different pain. ? You are confused and are having trouble thinking clearly. ? Your symptoms are getting worse. Watch closely for changes in your health, and be sure to contact your doctor if: ? You do not get better as expected. Patient Instructions: COPD (Chronic Obstructive Pulmonary Disease) (DC), Community Acquired Pneumonia (DC), Chronic Lung Disease and Infection Prevention (DC) Patient Language: Danish Stand Alone Forms: General Discharge Information, Correction Discharge Follow-up/Referrals: Brooks Jones MD [Primary Care Provider] - 4 Weeks Discharge Medications: New benzonatate 100 mg Capsule 100 mg PO TID PRN (Reason: Cough) Qty: 30 0RF amoxicillin-pot clavulanate [Augmentin] 500-125 mg Tablet 1 tablet PO Q12HR Qty: 5 0RF guaifenesin [Mucus Relief ER] 600 mg Tablet Extended Release 12hr 600 mg PO Q12HR Qty: 15 0RF Continued levothyroxine 112 mcg tablet 112 mcg PO DAILY budesonide-formoterol [Symbicort] 160-4.5 mcg/actuation HFA aerosol inhaler 2 puff inhalation Q12H Qty: 10.2 11RF Rx Instructions: Rinse mouth and spit after each use lisinopril 20 mg tablet 20 mg PO DAILY Qty: 90 1RF cholecalciferol (vitamin D3) 125 mcg (5,000 unit) capsule 125 mcg PO DAILY Qty: 90 1RF albuterol sulfate 90 mcg/actuation aero powdr breath act w/sensor 2 inh inhalation Q6H Qty: 1 2RF atorvastatin 20 mg tablet 20 mg PO QHS Qty: 90 1RF atenolol 100 mg tablet 100 mg PO DAILY Qty: 90 1RF ipratropium-albuterol 0.5 mg-3 mg(2.5 mg base)/3 mL solution for nebulization 3 ml inhalation Q6H PRN (Reason: shortness of breath or wheezing) Qty: 360 1RF Discontinued prednisone 10 mg tablet 10 mg PO DIRECTED Qty: 30 0RF Rx Instructions: Take 4 tablets by mouth daily for 3 days, then 3 tablets for 3 days, 2 tablets for 3 days, 1 tablet for 3 days Date of admission: 02/11/25 09:30 Primary Care Provider: Brooks Jones Admitting Provider: Ash Khanna Attending physician on admission: Afsaneh Flores Condition: Stable Quality VTE Prophylaxis VTE prophylaxis: mechanical ordered -Patient's previous records reviewed on admission -ER notes reviewed in detail on admission -discussed all findings and current treatment plan with patient/Family/POA -Consultations reviewed for recommendations -Patient's disposition for safe discharge discussed with case management assistant Dictation performed by [employer] direct speech recognition software, therefore [employer] variants and typographical errors may occur. Hospitalist MIPS Heart Failure (Exclusion) Patient has history of Heart Transplant or Left Ventricular Assistive Device?: No IF YES, STOP HERE Heart Failure (Qualifier) Patient has current or prior documentation of LVEF less than or equal to 40%, or mod/servere depressed LVSF?: No IF NO, STOP HERE
--- NOTE | 2025-02-15 15:38 | P.PNIM_ITS ---
Progress Note: A&P Assessment and Plan (1) Acute respiratory failure with hypoxia: Code(s): J96.01 - Acute respiratory failure with hypoxia Status: Acute Assessment and Plan: * Secondary to influenza/pneumonia/COPD exacerbation * Patient requiring supplemental oxygen to maintain 92% will continue to wean as tolerated * Continue with underlying treatment pneumonia, COPD and influenza 02/14: * Continue to wean O2 on 1.5 L (2) Pneumonia: Qualifiers: Laterality: bilateral Lung location: lower lobe of lung Pneumonia type: due to unspecified organism Qualified Code(s): J18.9 - Pneumonia, unspecified organism Code(s): J18.9 - Pneumonia, unspecified organism Status: Acute Assessment and Plan: * CXR: 1. Worsened airspace opacities at the lung bases, consistent with atelectasis versus pneumonia. 2. Small right pleural effusion. 3. Emphysema. * risk factors and complicating factors: COPD/emphysema, recent Flu A * started on CAP tx: ceftriaxone IV and doxycycline p.o. on 02/11 * switch to Rocephin and azithromycin * Mucinex erik * Tylenol p.r.n. * Tessalon Perles p.r.n. * DuoNebs erik * sputum culture * currently requiring supplemental O2: 2L * incentive spirometer (3) COPD (chronic obstructive pulmonary disease): Qualifiers: COPD type: unspecified COPD Qualified Code(s): J44.9 - Chronic obstructive pulmonary disease, unspecified Code(s): J44.9 - Chronic obstructive pulmonary disease, unspecified Status: Acute Assessment and Plan: * DuoNebs erik * prednisone 40 mg p.o. daily x5 days * continue maintenance inhaler: Symbicort * patient reports she quit smoking back in September 19, 2024 * wean oxygen as tolerated if unable to wean will need home O2 walk study prior to discharge (4) Influenza A: Code(s): J10.1 - Influenza due to other identified influenza virus with other respiratory manifestations Status: Acute Assessment and Plan: * Tested positive 02/08 * Supportive care * out of the window for Tamiflu * Acetaminophen for fever and mild pain * Encourage hydration (5) Stage 3a chronic kidney disease (CKD): Code(s): N18.31 - Chronic kidney disease, stage 3a Status: Chronic Assessment and Plan: * creatinine 1.41 and GFR 36, previously 1.24 on 02/09 and 1.4 on 02/08 * history of CKD 3A * trend renal function * trend electrolytes, correct as needed 02/12/25: * Improved 1.14 (6) Essential hypertension: Code(s): I10 - Essential (primary) hypertension Status: Chronic Assessment and Plan: * chronic, currently 116/64 * continue home medications: Lisinopril 20 mg daily * monitor per unit protocol (7) Severe protein-calorie malnutrition (Kennedy: less than 60% of standard weight): Code(s): E43 - Unspecified severe protein-calorie malnutrition Status: Acute Assessment and Plan: * dietitian consulted * supplements with each meal Plan Code status: Full code per patient DVT prophylaxis: SCD Stress ulcer prophylaxis: Protonix 40 daily PT/OT notes: Pending Disposition: patient was admitted to the medical unit further treatment of pneumonia and COPD exacerbation continue to wean oxygen as tolerated however unable to wean patient may need home O2 walk study prior to discharge. CC working on rehab placement. Time Spent With Patient Time with patient: 15 - 25 minutes Subjective Date/time seen: 02/15/25 15:38 Interval history: Patient is an 84-year-old female who was admitted for further treatment pneumonia and COPD exacerbation 02/15/25: Patient with no complaints today feeling better reports shortness of breath has improved but still with productive cough. Exam Narrative: cachectic and hard of hearing Const: Other: , female, modestly ill-appearing, thin HENMT: Other: + [place] Resp: Other: faint intermittent expiratory wheeze. mild conversational dyspnea. Cardio: Other: S1-S2 present without murmur, rub, ectopy GI: Other: Abdomen soft, nondistended, nontender. Neuro: Other: A&O x4 Psych: Other: mild agitation/frustration. Objective Data Vital Signs Vital Signs: Vital Signs - 24 hr 02/14/25 20:45 02/14/25 21:42 02/14/25 21:52 Temperature 98.5 F Pulse Rate 77 65 67 Respiratory Rate 16 16 16 Blood Pressure 149/82 H Pulse Oximetry 98 Oxygen Delivery Oxygen Flow Rate Fraction of Inspired Oxygen 02/14/25 21:54 02/15/25 06:00 02/15/25 08:00 Temperature 97.5 F L Pulse Rate 66 Respiratory Rate 20 Blood Pressure 150/78 H Pulse Oximetry 96 99 99 Oxygen Delivery Nasal Cannula Nasal Cannula Oxygen Flow Rate 2 1.5 Fraction of Inspired Oxygen 28 02/15/25 09:37 02/15/25 09:37 02/15/25 09:45 Temperature Pulse Rate 75 72 Respiratory Rate 16 16 Blood Pressure Pulse Oximetry 97 Oxygen Delivery Nasal Cannula Oxygen Flow Rate 2 Fraction of Inspired Oxygen 02/15/25 14:00 02/15/25 14:24 Temperature 98.8 F Pulse Rate 64 68 Respiratory Rate 14 16 Blood Pressure 150/82 H Pulse Oximetry 99 Oxygen Delivery Oxygen Flow Rate Fraction of Inspired Oxygen Intake/Output Intake/Output: Intake & Output 02/12/25 02/13/25 02/14/25 02/15/25 23:59 23:59 23:59 23:59 Intake Total 997 010 5124 340 Balance 136 255 6778 340 Meds/Results Medications: Active Medications Generic Name Dose Route Start Last Admin Trade Name Freq PRN Reason Stop Dose Admin Acetaminophen 650 mg 02/11/25 09:30 Acetaminophen 325 Mg Tablet PO Q4H PRN Mild Pain (1-3) or Fever Albuterol/Ipratropium 3 ml 02/11/25 14:00 02/15/25 14:24 Ipratropium 0.5 Mg/Albuterol Sulfate 2.5 Mg Ampul.Neb 3 Ml INHALATION 3 ml Q6HRT ERIK Administration Amoxicillin/Clavulanate Potassium 1 tablet 02/15/25 09:00 02/15/25 09:18 Amoxicillin/Clavulanate K 500-125 Mg Tab PO 02/17/25 21:01 1 tablet Q12HR ERIK Administration Atenolol 100 mg 02/12/25 09:00 02/15/25 09:18 Atenolol 50 Mg Tablet PO 100 mg DAILY ERIK Administration Atorvastatin Calcium 20 mg 02/11/25 21:00 02/14/25 20:16 Atorvastatin 20 Mg Tablet PO 20 mg QHS ERIK Administration Benzonatate 100 mg 02/11/25 14:47 Benzonatate 100 Mg Capsule PO TID PRN Cough Guaifenesin 600 mg 02/11/25 21:00 02/15/25 09:17 Guaifenesin 12 Hr 600 Mg Tabcr PO 600 mg Q12HR ERIK Administration Levothyroxine Sodium 112 mcg 02/12/25 09:00 02/15/25 09:18 Levothyroxine Sodium 112 Mcg Tablet PO 112 mcg DAILY ERIK Administration Lisinopril 20 mg 02/12/25 09:00 02/15/25 09:18 Lisinopril 20 Mg Tablet PO 20 mg DAILY ERIK Administration Morphine Sulfate 2 mg 02/11/25 09:30 Morphine Sulfate (*Crx) 2 Mg/Ml Inj IV PUSH Q2H PRN Pain Rated 7-10 Ondansetron HCl 4 mg 02/11/25 09:30 Ondansetron Inj 4 Mg/2 Ml Vial IV PUSH Q4H PRN Nausea Prednisone 40 mg 02/11/25 14:50 02/15/25 09:17 Prednisone 20 Mg Tablet PO 02/16/25 14:49 40 mg DAILY@0800 ERIK Administration Fluticasone/Salmeterol 2 puff 02/11/25 20:00 02/15/25 09:36 Fluticasone/Salmeterol 115-21 Mcg Inhaler 1 Puff INHALATION 2 puff Q12HRT ERIK Administration Vitamin D 5,000 units 02/12/25 09:00 02/15/25 09:17 Cholecalciferol 5,000 Units Tablet PO 5,000 units DAILY ERIK Administration Radiology Results: ITS Impressions Chest X-Ray 02/11/25 09:01 IMPRESSION: 1. Worsened airspace opacities at the lung bases, consistent with atelectasis versus pneumonia. 2. Small right pleural effusion. 3. Emphysema. Labs Labs: Laboratory Results - last 24 hr 02/15/25 06:14 WBC 9.5 RBC 4.05 L Hgb 11.3 L Hct 35.2 L MCV 86.9 MCH 27.9 MCHC 32.1 RDW 13.2 Plt Count 201 MPV 10.3 Sodium 137 Potassium 4.2 Chloride 105 Carbon Dioxide 26 Anion Gap 6 BUN 42 H Creatinine 1.14 H Estim Creat Clear Calc 22 Estimated GFR 46 L Glucose 103 Calcium 8.7 Total Bilirubin 0.4 AST 26 ALT 30 Alkaline Phosphatase 55 Total Protein 5.0 L Albumin 2.7 L Quality VTE Prophylaxis VTE prophylaxis: mechanical ordered -Patient's previous records reviewed on admission -ER notes reviewed in detail on admission -discussed all findings and current treatment plan with patient/Family/POA -Consultations reviewed for recommendations -Patient's disposition for safe discharge discussed with manager of case Dictation performed by [employer] direct speech recognition software, therefore medical practitioners variants and typographical errors may occur. Hospitalist [facility] Advance Care Plan I have confirmed that the patient's Advanced Care Plan is present, code status is documented, or surrogate decision maker is listed in patient medical record.: Yes Medication Reconciliation I have utilized all available resources to obtain, update and review the patients current medications (includes all prescriptions, OTC, herbals, cannabis, and nutritional supplements).: Yes The patient is not eligible for med reconciliation; the patient is in a emergent medical situation where delaying treatment would jeopardize the patients health.: No
[2025-02-15] MEDS: ATORVASTATIN 20 MG TABLET PO (20:36)
[2025-02-16] VITALS (14 sets, daily range): BP systolic 100–158; BP diastolic 52–85; PULSE 65–76; RESP 14–20; TEMP 36.2–36.5; O2SAT 95–100
[2025-02-16] MEDS: IPRATROPIUM 0.5 MG/ALBUTEROL SULFATE 2.5 MG AMPUL.NEB 3 ML INHALATION ×4 (02:52→20:57)
[2025-02-16 06:37] LABS: Hematocrit 39.4 % (37.0-47.0); Hemoglobin 12.5 g/dL (12.0-15.0); Mean Corpuscular HGB Conc 31.7 g/dl (32-36); Mean Corpuscular Hemoglobin 27.6 pg (26-34); Mean Platelet Volume 9.6 fl (7.4-10.4); Platelet Count Result 208 k/mm3 (150-375); Red Blood Count 4.53 M/mm3 (4.2-5.4); Red Cell Distribution Width 13.2 % (11.5-14.5); White Blood Count 14.8 K/mm3 (4.5-10.0)
[2025-02-16 06:48] LABS: Alanine Aminotransferase 27 U/L (6-35); Albumin Level 2.8 g/dL (3.5-5.1); Alkaline Phosphatase 52 U/L (38-126); Anion Gap 2 mmol/L (4-12); Aspartate Amino Transferase 24 U/L (14-36); Bilirubin,Total 0.5 mg/dL (0.2-1.3); Blood Urea Nitrogen 44 mg/dL (7-17); Calcium 8.6 mg/dL (8.4-10.2); Carbon Dioxide 32 mmol/L (22-30); Chloride 104 mmol/L (98-107); Estimated CRCL calculation 23 ml/min; Estimated Glomerular Filt Rate 46; Glucose 102 mg/dL (65-110); Potassium 4.5 mmol/L (3.4-5.0); Sodium 138 mmol/L (137-145)
[2025-02-16] MEDS: ONDANSETRON INJ 4 MG/2 ML VIAL IV PUSH (08:07)
--- NOTE | 2025-02-16 08:38 | P.PNIM_ITS ---
Progress Note: A&P Assessment and Plan (1) Acute respiratory failure with hypoxia: Code(s): J96.01 - Acute respiratory failure with hypoxia Status: Acute Assessment and Plan: * Secondary to influenza/pneumonia/COPD exacerbation * Patient requiring supplemental oxygen to maintain 92% will continue to wean as tolerated. Not on oxygen at home prior to admission * Continue with underlying treatment pneumonia, COPD and influenza Wean oxygen as tolerated (2) Pneumonia: Qualifiers: Laterality: bilateral Lung location: lower lobe of lung Pneumonia type: due to unspecified organism Qualified Code(s): J18.9 - Pneumonia, unspecified organism Code(s): J18.9 - Pneumonia, unspecified organism Status: Acute Assessment and Plan: * CXR: 1. Worsened airspace opacities at the lung bases, consistent with atelectasis versus pneumonia. 2. Small right pleural effusion. 3. Emphysema. * risk factors and complicating factors: COPD/emphysema, recent Flu A * started on CAP tx: ceftriaxone IV and doxycycline p.o. on 02/11 * switch to Rocephin and azithromycin * Mucinex erik * Tylenol p.r.n. * Tessalon Perles p.r.n. * DuoNebs erik * sputum culture * currently requiring supplemental O2: 2L * incentive spirometer (3) COPD (chronic obstructive pulmonary disease): Qualifiers: COPD type: unspecified COPD Qualified Code(s): J44.9 - Chronic obstructive pulmonary disease, unspecified Code(s): J44.9 - Chronic obstructive pulmonary disease, unspecified Status: Acute Assessment and Plan: * DuoNebs erik * prednisone 40 mg p.o. daily x5 days * continue maintenance inhaler: Symbicort * patient reports she quit smoking back in September 19, 2024 * wean oxygen as tolerated if unable to wean will need home O2 walk study prior to discharge (4) Influenza A: Code(s): J10.1 - Influenza due to other identified influenza virus with other respiratory manifestations Status: Acute Assessment and Plan: * Tested positive 02/08 * Supportive care * out of the window for Tamiflu * Acetaminophen for fever and mild pain * Encourage hydration (5) Stage 3a chronic kidney disease (CKD): Code(s): N18.31 - Chronic kidney disease, stage 3a Status: Chronic Assessment and Plan: * creatinine 1.41 and GFR 36, previously 1.24 on 02/09 and 1.4 on 02/08 * history of CKD 3A * trend renal function * trend electrolytes, correct as needed 02/12/25: * Improved 1.14 (6) Essential hypertension: Code(s): I10 - Essential (primary) hypertension Status: Chronic Assessment and Plan: * chronic, currently 116/64 * continue home medications: Lisinopril 20 mg daily * monitor per unit protocol (7) Severe protein-calorie malnutrition (Kennedy: less than 60% of standard weight): Code(s): E43 - Unspecified severe protein-calorie malnutrition Status: Acute Assessment and Plan: * dietitian consulted * supplements with each meal Plan Code status: Full code per patient DVT prophylaxis: SCD Stress ulcer prophylaxis: Protonix 40 daily PT/OT notes: Pending Disposition: patient was admitted to the medical unit further treatment of pneumonia and COPD exacerbation continue to wean oxygen as tolerated however unable to wean patient may need home O2 walk study prior to discharge. CC working on rehab placement. Leukocytosis likely due to steroid Subjective Date/time seen: 02/16/25 08:38 Interval history: No overnight events. Patient threw up this morning. Denies any abdominal pain. Shortness of breath has improved. Review of Systems Review of Systems: All systems reviewed & are unremarkable except as noted in HPI and below Exam Narrative: Narrative: cachectic and hard of hearing Const: Other: , female, modestly ill-appearing, thin HENMT: Other: + [place] Resp: Other: diminished breathsounds bialterally, no wheeze, mild conversational dyspnea. Cardio: Other: S1-S2 present without murmur, rub, ectopy GI: Other: Abdomen soft, nondistended, nontender. Neuro: Other: A&O x4 Psych: normal mood Objective Data Vital Signs Vital Signs: Vital Signs - 24 hr 02/15/25 09:37 02/15/25 09:37 02/15/25 09:45 Temperature Pulse Rate 75 72 Respiratory Rate 16 16 Blood Pressure Pulse Oximetry 97 Oxygen Delivery Nasal Cannula Oxygen Flow Rate 2 02/15/25 14:00 02/15/25 14:24 02/15/25 14:35 Temperature 98.8 F Pulse Rate 64 68 65 Respiratory Rate 14 16 16 Blood Pressure 150/82 H Pulse Oximetry 99 Oxygen Delivery Oxygen Flow Rate 02/15/25 21:21 02/15/25 21:21 02/15/25 21:25 Temperature Pulse Rate 67 64 Respiratory Rate 18 18 Blood Pressure Pulse Oximetry 95 Oxygen Delivery Nasal Cannula Oxygen Flow Rate 2 02/15/25 21:28 02/16/25 02:52 02/16/25 02:58 Temperature 97.7 F Pulse Rate 68 69 74 Respiratory Rate 16 15 15 Blood Pressure 147/83 H Pulse Oximetry 98 Oxygen Delivery Oxygen Flow Rate 02/16/25 05:55 Temperature 97.7 F Pulse Rate 76 Respiratory Rate 20 Blood Pressure 158/85 H Pulse Oximetry 100 Oxygen Delivery Oxygen Flow Rate Intake/Output Intake/Output: Intake & Output 02/13/25 02/14/25 02/15/25 02/16/25 23:59 23:59 23:59 23:59 Intake Total 960 2040 1540 300 Balance 960 2040 1540 300 Meds/Results Medications: Active Medications Generic Name Dose Route Start Last Admin Trade Name Freq PRN Reason Stop Dose Admin Acetaminophen 650 mg 02/11/25 09:30 Acetaminophen 325 Mg Tablet PO Q4H PRN Mild Pain (1-3) or Fever Albuterol/Ipratropium 3 ml 02/11/25 14:00 02/16/25 02:52 Ipratropium 0.5 Mg/Albuterol Sulfate 2.5 Mg Ampul.Neb 3 Ml INHALATION 3 ml Q6HRT ERIK Administration Amoxicillin/Clavulanate Potassium 1 tablet 02/15/25 09:00 02/15/25 20:35 Amoxicillin/Clavulanate K 500-125 Mg Tab PO 02/17/25 21:01 1 tablet Q12HR ERIK Administration Atenolol 100 mg 02/12/25 09:00 02/15/25 09:18 Atenolol 50 Mg Tablet PO 100 mg DAILY ERIK Administration Atorvastatin Calcium 20 mg 02/11/25 21:00 02/15/25 20:36 Atorvastatin 20 Mg Tablet PO 20 mg QHS ERIK Administration Benzonatate 100 mg 02/11/25 14:47 Benzonatate 100 Mg Capsule PO TID PRN Cough Guaifenesin 600 mg 02/11/25 21:00 02/15/25 20:36 Guaifenesin 12 Hr 600 Mg Tabcr PO 600 mg Q12HR ERIK Administration Levothyroxine Sodium 112 mcg 02/12/25 09:00 02/15/25 09:18 Levothyroxine Sodium 112 Mcg Tablet PO 112 mcg DAILY ERIK Administration Lisinopril 20 mg 02/12/25 09:00 02/15/25 09:18 Lisinopril 20 Mg Tablet PO 20 mg DAILY ERIK Administration Morphine Sulfate 2 mg 02/11/25 09:30 Morphine Sulfate (*Crx) 2 Mg/Ml Inj IV PUSH Q2H PRN Pain Rated 7-10 Ondansetron HCl 4 mg 02/11/25 09:30 02/16/25 08:07 Ondansetron Inj 4 Mg/2 Ml Vial IV PUSH 4 mg Q4H PRN Administration Nausea Prednisone 40 mg 02/11/25 14:50 02/15/25 09:17 Prednisone 20 Mg Tablet PO 02/16/25 14:49 40 mg DAILY@0800 ERIK Administration Fluticasone/Salmeterol 2 puff 02/11/25 20:00 02/15/25 21:18 Fluticasone/Salmeterol 115-21 Mcg Inhaler 1 Puff INHALATION 2 puff Q12HRT ERIK Administration Vitamin D 5,000 units 02/12/25 09:00 02/15/25 09:17 Cholecalciferol 5,000 Units Tablet PO 5,000 units DAILY ERIK Administration Radiology Results: ITS Impressions Chest X-Ray 02/11/25 09:01 IMPRESSION: 1. Worsened airspace opacities at the lung bases, consistent with atelectasis versus pneumonia. 2. Small right pleural effusion. 3. Emphysema. Labs Labs: Laboratory Results - last 24 hr 02/16/25 06:30 WBC 14.8 H RBC 4.53 Hgb 12.5 Hct 39.4 MCV 87.0 MCH 27.6 MCHC 31.7 L RDW 13.2 Plt Count 208 MPV 9.6 Sodium 138 Potassium 4.5 Chloride 104 Carbon Dioxide 32 H Anion Gap 2 L BUN 44 H Creatinine 1.12 H Estim Creat Clear Calc 23 Estimated GFR 46 L Glucose 102 Calcium 8.6 Total Bilirubin 0.5 AST 24 ALT 27 Alkaline Phosphatase 52 Total Protein 5.0 L Albumin 2.8 L
[2025-02-16] MEDS: FLUTICASONE/SALMETEROL 115-21 MCG INHALER 1 PUFF 2 PUFF INHALATION ×2 (08:58→20:58)
[2025-02-16] MEDS: atenoloL 50 MG TABLET 100 MG PO (09:23)
[2025-02-16] MEDS: CHOLECALCIFEROL 5,000 UNITS TABLET 5000 UNITS PO (09:23)
[2025-02-16] MEDS: predniSONE 20 MG TABLET 40 MG PO (09:24)
[2025-02-16] MEDS: lisinopriL 20 MG TABLET PO (09:25)
[2025-02-16] MEDS: LEVOTHYROXINE SODIUM 112 MCG TABLET PO (09:25)
[2025-02-16] MEDS: guaiFENesin 12 HR 600 MG TABCR PO ×2 (09:25→21:24)
[2025-02-16] MEDS: AMOXICILLIN/CLAVULANATE K 500-125 MG TAB 1 TABLET PO ×2 (09:25→21:25)
[2025-02-16] MEDS: FAMOTIDINE 20 MG TABLET PO ×2 (12:52→21:24)
[2025-02-16] MEDS: ATORVASTATIN 20 MG TABLET PO (21:25)
[2025-02-17] VITALS (9 sets, daily range): BP systolic 111; BP diastolic 58; PULSE 64–72; RESP 14–20; TEMP 36.8; O2SAT 95–99
[2025-02-17 06:41] LABS: Hematocrit 36.9 % (37.0-47.0); Hemoglobin 11.3 g/dL (12.0-15.0); Mean Corpuscular HGB Conc 30.6 g/dl (32-36); Mean Corpuscular Volume 91.3 fl (80-100); Mean Platelet Volume 10.3 fl (7.4-10.4); Platelet Count Result 194 k/mm3 (150-375); Red Blood Count 4.04 M/mm3 (4.2-5.4); Red Cell Distribution Width 13.3 % (11.5-14.5); White Blood Count 10.4 K/mm3 (4.5-10.0)
[2025-02-17] MEDS: LEVOTHYROXINE SODIUM 112 MCG TABLET PO (06:42)
[2025-02-17 06:56] LABS: Alanine Aminotransferase 22 U/L (6-35); Albumin Level 2.6 g/dL (3.5-5.1); Alkaline Phosphatase 48 U/L (38-126); Anion Gap 4 mmol/L (4-12); Aspartate Amino Transferase 19 U/L (14-36); Bilirubin,Total 0.3 mg/dL (0.2-1.3); Blood Urea Nitrogen 50 mg/dL (7-17); Calcium 8.4 mg/dL (8.4-10.2); Carbon Dioxide 30 mmol/L (22-30); Chloride 105 mmol/L (98-107); Estimated CRCL calculation 19 ml/min; Estimated Glomerular Filt Rate 38; Glucose 121 mg/dL (65-110); Potassium 4.8 mmol/L (3.4-5.0); Sodium 139 mmol/L (137-145)
--- NOTE | 2025-02-17 08:12 | P.DS_ITS ---
DS: Admitting Diagnosis Discharge Date 02/17/25 Admitting Diagnosis Shortness of breath DS: Discharge Diagnosis Discharge Diagnosis (1) Acute respiratory failure with hypoxia: Code(s): J96.01 - Acute respiratory failure with hypoxia Status: Acute (2) Pneumonia: Qualifiers: Laterality: bilateral Lung location: lower lobe of lung Pneumonia type: due to unspecified organism Qualified Code(s): J18.9 - Pneumonia, unspecified organism Code(s): J18.9 - Pneumonia, unspecified organism Status: Acute (3) COPD (chronic obstructive pulmonary disease): Qualifiers: COPD type: unspecified COPD Qualified Code(s): J44.9 - Chronic obstructive pulmonary disease, unspecified Code(s): J44.9 - Chronic obstructive pulmonary disease, unspecified Status: Acute (4) Influenza A: Code(s): J10.1 - Influenza due to other identified influenza virus with other respiratory manifestations Status: Acute (5) Stage 3a chronic kidney disease (CKD): Code(s): N18.31 - Chronic kidney disease, stage 3a Status: Chronic (6) Essential hypertension: Code(s): I10 - Essential (primary) hypertension Status: Chronic (7) Severe protein-calorie malnutrition (Kennedy: less than 60% of standard weight): Code(s): E43 - Unspecified severe protein-calorie malnutrition Status: Acute DS: Summary Hospital Course Hospital Course: # Acute respiratory failure with hypoxia: * Secondary to influenza/pneumonia/COPD exacerbation * Patient requiring supplemental oxygen to maintain 92% will continue to wean as tolerated. Not on oxygen at home prior to admission * Continue with underlying treatment pneumonia, COPD and influenzaWean oxygen as tolerated # Pneumonia: * CXR:1. Worsened airspace opacities at the lung bases, consistent with atelectasis versus pneumonia. 2. Small right pleural effusion. 3. Emphysema. * risk factors and complicating factors: COPD/emphysema, recent Flu A * started on CAP tx: ceftriaxone IV and doxycycline p.o. on 02/11 * switch to Rocephin and azithromycin * Mucinex erik * Tylenol p.r.n. * Yue Willett p.r.n. * Tawana erik * sputum culture * currently requiring supplemental O2: 2L * incentive spirometer # COPD (chronic obstructive pulmonary disease): * Tawana erik * prednisone 40 mg p.o. daily x5 days * continue maintenance inhaler: Symbicort * patient reports she quit smoking back in September 19, 2024 * wean oxygen as tolerated if unable to wean will need home O2 walk study prior to discharge # Influenza A: * Tested positive 02/08 * Supportive care * out of the window for Tamiflu * Acetaminophen for fever and mild pain * Encourage hydration # Stage 3a chronic kidney disease (CKD): * creatinine 1.41 and GFR 36, previously 1.24 on 02/09 and 1.4 on 02/08 * history of CKD 3A * trend renal function * trend electrolytes, correct as needed02/12/25: * Improved 1.14 # Essential hypertension: * chronic, currently 116/64 * continue home medications: Lisinopril 20 mg daily * monitor per unit protocol # Severe protein-calorie malnutrition (Kennedy: less than 60% of standard weight): * dietitian consulted * supplements with each meal Code status: Full code per patient DVT prophylaxis: SCD Stress ulcer prophylaxis: Protonix 40 daily PT/OT notes: Pending Disposition: patient was admitted to the medical unit further treatment of pneumonia and COPD exacerbation continue to wean oxygen as tolerated however unable to wean patient may need home O2 walk study prior to discharge. CC working on rehab placement. Leukocytosis likely due to steroid. Patient discharged to rehab facility Time Spent with Patient Time attestation: Total time spent providing and/or coordinating discharge services: 35 minutes Exam Narrative: Narrative: cachectic and hard of hearing Const: Other: , female, modestly ill-appearing, thin HENMT: Other: + [place] Resp: Other: diminished breathsounds bialterally, no wheeze, mild conversational dyspnea. Cardio: Other: S1-S2 present without murmur, rub, ectopy GI: Other: Abdomen soft, nondistended, nontender. Neuro: Other: A&O x4 Psych: normal mood DS: Data Imaging Radiologist's impression: ITS Impressions Chest X-Ray 02/11/25 09:01 IMPRESSION: 1. Worsened airspace opacities at the lung bases, consistent with atelectasis versus pneumonia. 2. Small right pleural effusion. 3. Emphysema. Discharge Plan Discharge Attending physician on discharge: Frank Abdullahi Consulting providers: Sherine Boyle; Brien Del Toro; Redd Toscano V. Discharging Clinician: Ash Khanna Anticipated Discharge Date/Time: 02/16/25 09:00 Patient Disposition: SNF Activity: may shower and as tolerated Diet: as tolerated and regular Discharge Instructions: Pneumonia/COPD * Please complete antibiotic as indicated * You have completed your course of prednisone while hospitalized * Supplemental oxygen as needed to maintain 92% * Follow-up with Pulmonary outpatient * Continue to use your inhalers as needed * I encourage protein shake with each meal How can you care for yourself at home? ? Keep track of any new symptoms or changes in your symptoms. ? Rest until you feel better. ? Be safe with medicines. Take your medicines exactly as prescribed. Call your doctor if you think you are having a problem with your medicine. ? Do not drive after taking a prescription pain medicine. ? Ensure to follow-up with primary care physician as indicated and provide updated medication list provided to you at discharge. When should you call for help? Call 911 anytime you think you may need emergency care. For example, call if: ? You passed out (lost consciousness). Call your doctor now or seek immediate medical care if: ? You have new symptoms like fever, difficulty breathing, Chest pain, vomiting, or rash. ? You have new or different pain. ? You are confused and are having trouble thinking clearly. ? Your symptoms are getting worse. Watch closely for changes in your health, and be sure to contact your doctor if: ? You do not get better as expected. Patient Instructions: COPD (Chronic Obstructive Pulmonary Disease) (DC), Community Acquired Pneumonia (DC), Chronic Lung Disease and Infection Prevention (DC) Patient Language: Azeri Stand Alone Forms: General Discharge Information, Longterm Discharge Follow-up/Referrals: Brooks Jones MD [Primary Care Provider] - 4 Weeks Discharge Medications: New benzonatate 100 mg Capsule 100 mg PO TID PRN (Reason: Cough) Qty: 30 0RF amoxicillin-pot clavulanate [Augmentin] 500-125 mg Tablet 1 tablet PO Q12HR Qty: 5 0RF guaifenesin [Mucus Relief ER] 600 mg Tablet Extended Release 12hr 600 mg PO Q12HR Qty: 15 0RF Continued levothyroxine 112 mcg tablet 112 mcg PO DAILY budesonide-formoterol [Symbicort] 160-4.5 mcg/actuation HFA aerosol inhaler 2 puff inhalation Q12H Qty: 10.2 11RF Rx Instructions: Rinse mouth and spit after each use lisinopril 20 mg tablet 20 mg PO DAILY Qty: 90 1RF cholecalciferol (vitamin D3) 125 mcg (5,000 unit) capsule 125 mcg PO DAILY Qty: 90 1RF albuterol sulfate 90 mcg/actuation aero powdr breath act w/sensor 2 inh inhalation Q6H Qty: 1 2RF atorvastatin 20 mg tablet 20 mg PO QHS Qty: 90 1RF atenolol 100 mg tablet 100 mg PO DAILY Qty: 90 1RF ipratropium-albuterol 0.5 mg-3 mg(2.5 mg base)/3 mL solution for nebulization 3 ml inhalation Q6H PRN (Reason: shortness of breath or wheezing) Qty: 360 1RF Discontinued prednisone 10 mg tablet 10 mg PO DIRECTED Qty: 30 0RF Rx Instructions: Take 4 tablets by mouth daily for 3 days, then 3 tablets for 3 days, 2 tablets for 3 days, 1 tablet for 3 days Date of admission: 02/11/25 09:30 Primary Care Provider: Brooks Jones Admitting Provider: Ash Khanna Attending physician on admission: Afsaneh Flores Condition: Stable
[2025-02-17] MEDS: atenoloL 50 MG TABLET 100 MG PO (08:30)
[2025-02-17] MEDS: guaiFENesin 12 HR 600 MG TABCR PO (08:30)
[2025-02-17] MEDS: lisinopriL 20 MG TABLET PO (08:30)
[2025-02-17] MEDS: FAMOTIDINE 20 MG TABLET PO (08:32)
[2025-02-17] MEDS: CHOLECALCIFEROL 5,000 UNITS TABLET 5000 UNITS PO (08:32)
[2025-02-17] MEDS: AMOXICILLIN/CLAVULANATE K 500-125 MG TAB 1 TABLET PO (08:32)
[2025-02-17] MEDS: IPRATROPIUM 0.5 MG/ALBUTEROL SULFATE 2.5 MG AMPUL.NEB 3 ML INHALATION (09:29)
[2025-02-17] MEDS: FLUTICASONE/SALMETEROL 115-21 MCG INHALER 1 PUFF 2 PUFF INHALATION (09:29)
== END 2025-02-17 11:40 | DRG 193 ==
LOC: ANHED 09:26 → ANH3MEDSUR 16:01
PROVIDERS: Admitting Provider Family Medicine; Emergency Provider Family Medicine; PCP Family Medicine; Visit Provider Nurse Practitioner Family
DX: J18.9 Pneumonia, unspecified organism (principal); E43 Unspecified severe protein-calorie malnutrition; J96.01 Acute respiratory failure with hypoxia; Z68.1 Body mass index [BMI] 19.9 or less, adult; J10.1 Influenza due to other identified influenza virus with other respiratory manifestations; J43.9 Emphysema, unspecified; I12.9 Hypertensive chronic kidney disease with stage 1 through stage 4 chronic kidney disease, or unspecified chronic kidney disease; N18.31 Chronic kidney disease, stage 3a; E78.5 Hyperlipidemia, unspecified; E03.9 Hypothyroidism, unspecified; M81.0 Age-related osteoporosis without current pathological fracture; N18.30 Chronic kidney disease, stage 3 unspecified; Z87.891 Personal history of nicotine dependence; Z90.710 Acquired absence of both cervix and uterus; Z90.49 Acquired absence of other specified parts of digestive tract
CPT/HCPCS: 36415; 71045; 80048; 80053; 85025; 85027; 87040; 87070; 87205; 93005; 94640; 96374; 96375; 97110; 97116; 97161; 97165; 97530; 97535; 99285; A9270; J0696; J2405; J7030; J7512

== ENCOUNTER 2025-07-04 14:26 | Outpatient (CLI) | payer MEDICARE, SELFPAY ==
--- NOTE | ~2025-07-04 | XR_ITS ---
AP view of the pelvis and AP and lateral views of the left hip Clinical history: Pain Findings: No acute fracture or dislocation is seen. Osseous alignment is anatomic. There is mild dege nerative change of both hip joints. There is moderate degenerative changes bilateral SI joints. Soft tissues are unremarkable. Impression: Degenerative changes, as detailed above. Reviewed, dictated and finalized at location M. Impression: Degenerative changes, as detailed above.
== END 2025-07-04 14:27 | disposition home or self-care (01) ==
LOC: GOSHIMG 14:26
PROVIDERS: PCP Family Medicine; Visit Provider Nurse Practitioner Family
DX: M16.0 Bilateral primary osteoarthritis of hip (principal); M47.898 Other spondylosis, sacral and sacrococcygeal region
CPT/HCPCS: 73502

== ENCOUNTER 2025-09-01 01:01 | Day surgery (SDC) | payer MEDICARE, SELFPAY ==
[2025-08-18 15:40] VITALS: BMI 15.1
[2025-09-01 09:15] VITALS: BP 100/52; PULSE 85; RESP 15; TEMP 36.6; O2SAT 100; BMI 14.7
[2025-09-01] MEDS: LACTATED RINGERS 1,000 ML 150 ML IV CONT (09:37)
[2025-09-01] MEDS: SIMETHICONE ORAL SUSPENSION 20 MG/0.3 ML 30 ML BOTTLE 1.8 ML PO (09:39)
--- NOTE | 2025-09-01 10:01 | WPDANESEPPF ---
Anes - Initial Pre Proc Eval Procedure: Operation Date: 09/01/25 10:30 Proposed Procedures p Esophagogastroduodenoscopy - Moisés Hsieh MD Date/Time: 09/01/25 10:01 Surgeon: Moisés Hsieh MD Pre Op Diagnosis: Nausea with vomiting, unspecified Patient Data Age: 85 Gender: F Height: 1.63 m Weight: 39 kg Last Vital Signs Temp 36.6 C 09/01/25 09:15 Pulse 85 09/01/25 09:15 Resp 15 09/01/25 09:15 BP 100/52 L 09/01/25 09:15 Pulse Ox 100 09/01/25 09:15 O2 Del Method Room Air 09/01/25 09:15 Allergies Allergy/AdvReac Type Severity Reaction Status Date / Time Fish Containing Products AdvReac Mild Nausea Verified 08/18/25 15:36 Home Medications ?Medication ?Instructions ?Recorded ?Confirmed ?Type cholecalciferol (vitamin D3) 125 125 mcg PO DAILY #90 caps 03/26/24 09/01/25 Rx mcg (5,000 unit) capsule ipratropium 0.5 mg-albuterol 3 mg 3 ml inhalation Q6H PRN shortness 02/10/25 08/18/25 Rx (2.5 mg base)/3 mL nebulization of breath or wheezing #360 mL soln lisinopril 20 mg tablet 20 mg PO DAILY #90 tabs 04/27/25 09/01/25 Rx atenolol 100 mg tablet 100 mg PO DAILY #90 tabs 08/10/25 09/01/25 Rx atorvastatin 20 mg tablet 20 mg PO QHS #90 tabs 08/10/25 09/01/25 Rx budesonide-formoterol HFA 160 See Rx Instructions .Route 08/10/25 09/01/25 Rx mcg-4.5 mcg/actuation aerosol .COMPLEX #10.2 grams inhaler (Symbicort) levothyroxine 112 mcg tablet 112 mcg PO DAILY #90 tabs 08/10/25 09/01/25 Rx omeprazole 20 mg tablet,delayed 20 mg PO DAILY #90 tabs 08/11/25 09/01/25 Rx release albuterol sulfate 90 mcg/actuation 2 puff inhalation Q4H PRN 08/16/25 08/18/25 Rx aerosol inhaler shortness of breath or wheezing #8.5 grams Patient hx anesthesia problems: none Family hx anesthesia problems: none Results Review: All pre-operative results and documents have been reviewed as part of the pre-operative evaluation. [facility] Past Medical History Medical History (Updated 08/10/25 @ 18:09 by Vonda Ward NP) Pneumonia Former smoker Emphysema of lung Hyperlipidemia Hypothyroid Vitamin D deficiency Osteoporosis CKD (chronic kidney disease) stage 3, GFR 30-59 ml/min Compression fracture Nicotine use Essential hypertension COPD (chronic obstructive pulmonary disease) Surgical History Surgical History History of hysterectomy History of appendectomy Family History Family History Sibling Bone cancer Daughter Diabetes mellitus Social History Social History (Updated 08/10/25 @ 17:53 by Vonda Ward NP) Social History: Elsie lives with her son and [id number]-ims. Smoking packs per day: 1 Smoking cigarettes per day: 20.0 Years smoked: 60 Smoking pack-years: 60.00 Smoking status: Former smoker Tobacco type: cigarettes Smoking end date: 08/31/24 Alcohol intake: never Substance use: never Substance use type: does not use Do You Feel Safe in your Home?: Yes Lack of Transportation: No Lack of Food: Never True Current Housing: I Have Housing Concerned About Future Housing: No Difficulty Paying Gas/Electric Bills: No Difficulty Paying for Meds: No Currently Unemployed: No Education: High School Diploma/GED Difficulty w/ Childcare or Family Care: No Living arrangements: with family Occupation/Education: retired Gender identity (if verbalized by the patient): Female Spiritual care concerns: No Agree to blood products: Yes Anes - Eval Final PreProcedure Day of Procedure 09/01/25 10:01 Patient weight: cachectic Heart: regular rate and rhythm Lungs: clear to auscultation and normal air movement Airway: Mallampati scale class II Neurological: alert and oriented Last oral intake: >/= 8 hours ASA classification: IV Emergent: no Anesthetic plan: proceed Anesthesia type and monitoring: general GIVS and standard monitoring Results Review: All pre-operative results and documents have been reviewed as part of the pre-operative evaluation. Informed Consent: The patient's anesthetic plan and its attendant risks and benefits were discussed with the patient/family/POA. Questions were solicited and answers provided to the satisfaction of the patient/family/POA.
--- NOTE | 2025-09-01 10:11 | PM.IMHP ---
H&P: HPI History of Present Illness Date/Time: 09/01/25 10:11 Chief Complaint: Vomiting Narrative: the patient has approximately 1 month of persistent vomiting, even in between meals. She has been experiencing early satiety and severe weight loss, unquantified. She is now referred for EGD. Review of Systems Review of Systems: All systems reviewed & are unremarkable except as noted in HPI and below PMFSH Past Medical History Medical History (Updated 08/10/25 @ 18:09 by Vonda Ward NP) Pneumonia Former smoker Emphysema of lung Hyperlipidemia Hypothyroid Vitamin D deficiency Osteoporosis CKD (chronic kidney disease) stage 3, GFR 30-59 ml/min Compression fracture Nicotine use Essential hypertension COPD (chronic obstructive pulmonary disease) Surgical History Surgical History History of hysterectomy History of appendectomy Family History Family History Sibling Bone cancer Daughter Diabetes mellitus Social History Social History (Updated 08/10/25 @ 17:53 by Vonda Ward NP) Social History: Elsie lives with her son and cojtvmem-yi-ize. Smoking packs per day: 1 Smoking cigarettes per day: 20.0 Years smoked: 60 Smoking pack-years: 60.00 Smoking status: Former smoker Tobacco type: cigarettes Smoking end date: 08/31/24 Alcohol intake: never Substance use: never Substance use type: does not use Do You Feel Safe in your Home?: Yes Lack of Transportation: No Lack of Food: Never True Current Housing: I Have Housing Concerned About Future Housing: No Difficulty Paying Gas/Electric Bills: No Difficulty Paying for Meds: No Currently Unemployed: No Education: High School Diploma/GED Difficulty w/ Childcare or Family Care: No Living arrangements: with family Occupation/Education: retired Gender identity (if verbalized by the patient): Female Spiritual care concerns: No Agree to blood products: Yes Meds Home Medications and Allergies Home Medications ?Medication ?Instructions ?Recorded ?Confirmed ?Type cholecalciferol (vitamin D3) 125 125 mcg PO DAILY #90 caps 03/26/24 09/01/25 Rx mcg (5,000 unit) capsule ipratropium 0.5 mg-albuterol 3 mg 3 ml inhalation Q6H PRN shortness 02/10/25 08/18/25 Rx (2.5 mg base)/3 mL nebulization of breath or wheezing #360 mL soln lisinopril 20 mg tablet 20 mg PO DAILY #90 tabs 04/27/25 09/01/25 Rx atenolol 100 mg tablet 100 mg PO DAILY #90 tabs 08/10/25 09/01/25 Rx atorvastatin 20 mg tablet 20 mg PO QHS #90 tabs 08/10/25 09/01/25 Rx budesonide-formoterol HFA 160 See Rx Instructions .Route 08/10/25 09/01/25 Rx mcg-4.5 mcg/actuation aerosol .COMPLEX #10.2 grams inhaler (Symbicort) levothyroxine 112 mcg tablet 112 mcg PO DAILY #90 tabs 08/10/25 09/01/25 Rx omeprazole 20 mg tablet,delayed 20 mg PO DAILY #90 tabs 08/11/25 09/01/25 Rx release albuterol sulfate 90 mcg/actuation 2 puff inhalation Q4H PRN 08/16/25 08/18/25 Rx aerosol inhaler shortness of breath or wheezing #8.5 grams Allergies Allergy/AdvReac Type Severity Reaction Status Date / Time Fish Containing Products AdvReac Mild Nausea Verified 08/18/25 15:36 Vital Signs Vital Signs - 24 hr 09/01/25 09:15 Temperature 97.8 F Pulse Rate 85 Respiratory Rate 15 Blood Pressure 100/52 L Pulse Oximetry 100 Oxygen Delivery Room Air Exam Const: General: cooperative and healthy appearing Resp: Effort & Inspection: normal respiratory effort and able to speak in complete sentences Auscultation: clear to auscultation bilaterally Cardio: Rate: regular rate Rhythm: regular rhythm GI: Inspection: normal to inspection GI Palp: No No hepatosplenomegaly present Auscultation: normal bowel sounds Rectal Exam: deferred Skin: General skin exam: normal color Psych: Appearance: grossly normal Mental Status: mental status grossly normal Assessment and Plan Assessment and plan (1) Nausea & vomiting: Qualifiers: Vomiting type: unspecified Qualified Code(s): R11.2 - Nausea with vomiting, unspecified Code(s): R11.2 - Nausea with vomiting, unspecified Status: Acute Assessment and Plan: The patient is deemed a good candidate for the procedure. Consent signed. Will proceed.
--- NOTE | 2025-09-01 10:35 | S_PTH ---
PATIENT: Elsie Kaye LOC: [facility] Agustin#:[id number] AGE/SX: 85/F ROOM: RE09/01/[address]: Moisés Hsieh MD : 1940 BED: DIS: 09/01/2025 SPEC #: [id number] RECD: 09/01/25 11:39 STATUS: JYOTSNA RE #: [id number] TIFFANY: 09/01/25 10:[address]: Moisés Hsieh DEPT: [facility] Surgical RECD BY: Corinne Randhawa MLT, ([facility]) ENTERED: 09/01/25 11:39 SP TYPE: Surgical OTHR DR: Dieter Jones MD Tissues: A - Biopsy Procedures: Hematoxylin and Eosin Stain Gross and Microscopic Level 4 MLH1 MSH2 MSH6 PMS2 HER2
[2025-09-01 10:37] VITALS: BP 94/57; PULSE 81; RESP 20; O2SAT 100
[2025-09-01 10:47] VITALS: BP 95/59; PULSE 79; RESP 21; O2SAT 100
[2025-09-01 10:57] VITALS: BP 102/66; PULSE 79; RESP 20; O2SAT 100
== END 2025-09-01 11:10 | disposition home or self-care (01) ==
PROVIDERS: PCP Family Medicine; Referring Provider Nurse Practitioner Family; Visit Provider Internal Medicine Gastroenterology
PROC: 0DJ08ZZ Inspection of Upper Intestinal Tract, Via Natural or Artificial Opening Endoscopic (ICD-10-PCS; CPT 43239; principal; 2025-09-01 10:30)
DX: C16.3 Malignant neoplasm of pyloric antrum (principal); R11.2 Nausea with vomiting, unspecified; K21.00 Gastro-esophageal reflux disease with esophagitis, without bleeding; Z87.891 Personal history of nicotine dependence; R64 Cachexia; Z68.1 Body mass index [BMI] 19.9 or less, adult
CPT/HCPCS: 43239; 88305; 88342; J2003; J2704; J7120